=== PATIENT | male | born 1960 | race Two or more races ===

== ENCOUNTER 2022-11-03 11:20 | Inpatient (IN) | payer MEDICAID, OTHER ==
[~2022-11-03] VITALS: Ht 177.8 cm; Wt 90.9 kg
[2022-11-03 12:16] LABS: Basophils # (auto) 0 10 ^3/uL (0-0.2); Basophils % (auto) 0.6 % (0.0-2.0); Eosinophils # (auto) 0 10 ^3/uL (0-0.8); Eosinophils % (auto) 0.2 % (0.0-7.0); Hematocrit 30.2 % (41.0-53.0); Lymphocytes % (auto) 15.5 % (10.0-50.0); Mean Corpuscular Hemoglobin 29.3 pg (28.0-32.0); Mean Corpuscular Hgb Conc. 33.2 g/dL (32.0-36.0); Mean Corpuscular Volume 88.2 fL (80.0-100.0); Monocytes # (auto) 0.7 10 ^3/uL (0-1.3); Monocytes % (auto) 11.5 % (0.0-12.0); Neutrophils # (auto) 4.6 10 ^3/uL (1.6-8.6); Neutrophils % (auto) 72.2 % (37.0-80.0); Red Blood Cells 3.43 10^6/uL (4.5-5.90); Red Cell Distribution Width 16.1 % (11.8-14.3); White Blood Cell 6.4 10^3/uL (4.4-10.8)
[2022-11-03 12:36] LABS: Albumin 2.7 g/dL (3.4-5.0); BUN/Creatinine Ratio 34.4; Calcium 8.8 mg/dL (8.5-10.1); Potassium 4.6 mmol/L (3.5-5.1)
[2022-11-03 12:38] LABS: Bilirubin, Total 1.4 mg/dL (0.2-1.0); Total Protein 6.9 g/dL (6.4-8.2)
[2022-11-03] MEDS ORDERED: PANTOPRAZOLE 40mg/50ML NS AE 50 ML IV ONE (13:15)
[2022-11-03] MEDS: OCTREOTIDE ACETATE 500 MCG in SODIUM CHL 0.9% 99 ML IV SCH (13:15)
[2022-11-03] MEDS ORDERED: OCTREOTIDE ACETATE 100 MCG in SODIUM CHL 0.9% 50 ML IV ONE (13:15)
[2022-11-03] MEDS ORDERED: cefTRIAXone SOD 1,000 MG VL IV ONE (13:15)
[2022-11-03] MEDS ORDERED: PANTOPRAZOLE 80 MG in SODIUM CHL 0.9% 100 ML IV ONE (13:15)
[2022-11-03 13:41] LABS: INR 1.32 (0.9-1.15)
[2022-11-03] MEDS ORDERED: IOHEXOL 300 MG/ML 100ML BOTTLE IJ ONE (14:21)
[2022-11-03] MEDS ORDERED: ONDANSETRON HCL 4 MG/2 ML VIAL IV ONE (14:45)
[2022-11-03] MEDS ORDERED: MORPHINE SULFATE 4 MG/ML SYR/VIAL IV ONE (14:45)
[2022-11-03 16:02] VITALS: BP 115/76
[2022-11-03 16:18] VITALS: BP 115/76
[2022-11-03 16:33] VITALS: BP 112/67
[2022-11-03 16:52] LABS: Cholesterol 59 mg/dL (< 200); HDL Cholesterol 35 mg/dL (40-59); LDL Cholesterol 21 mg/dL (< 100); Triglycerides 67 mg/dL (< 150)
[2022-11-03 17:25] VITALS: BP 107/59
[2022-11-03 18:29] LABS: Urine WBC None Seen /hpf (0 - 3)
[2022-11-03 18:30] LABS: Basophils # (auto) 0 10 ^3/uL (0-0.2); Eosinophils # (auto) 0 10 ^3/uL (0-0.8); Hemoglobin 9.1 g/dL (13.5-17.5); Lymphocytes # (auto) 0.9 10 ^3/uL (0.4-5.4); Mean Corpuscular Hemoglobin 29.8 pg (28.0-32.0); Mean Corpuscular Hgb Conc. 33.4 g/dL (32.0-36.0); Nucleated Red Blood Cells % 0.1 %
[2022-11-03] MEDS ORDERED: ONDANSETRON HCL 4 MG/2 ML VIAL IV PRN (18:30)
[2022-11-03 18:32] LABS: Basophils % (auto) 0.1 % (0.0-2.0); Hematocrit 27.1 % (41.0-53.0); Lymphocytes % (auto) 10.8 % (10.0-50.0); Mean Corpuscular Volume 89.2 fL (80.0-100.0); Monocytes # (auto) 0.6 10 ^3/uL (0-1.3); Monocytes % (auto) 7.5 % (0.0-12.0); Neutrophils # (auto) 6.9 10 ^3/uL (1.6-8.6); Neutrophils % (auto) 81.6 % (37.0-80.0); Red Blood Cells 3.04 10^6/uL (4.5-5.90); Red Cell Distribution Width 16.1 % (11.8-14.3); White Blood Cell 8.5 10^3/uL (4.4-10.8)
[2022-11-03] MEDS: MORPHINE SULFATE INJ 2 MG/ml SYRG IV PRN ×2 (18:38→22:44)
[2022-11-03 18:57] LABS: Amphetamine Screen, Urine NEGATIVE (NEGATIVE); Barbiturate Scree,Urine NEGATIVE (NEGATIVE); Benzodiazephine Screen, Urine NEGATIVE (NEGATIVE); Cannabinoid Screen, Urine POSITIVE (NEGATIVE); Cocaine Screen, Urine NEGATIVE (NEGATIVE); Opiate Scree,Urine POSITIVE (NEGATIVE); Phencyclidine Screen, Urine NEGATIVE (NEGATIVE)
[2022-11-03 18:59] LABS: Urine Bacteria NONE SEEN /hpf (None Seen); Urine Blood Negative /uL (Negative); Urine Hyaline Cast MOD /lpf (0 - 2); Urine Sperm PRESENT /hpf (None Seen)
[2022-11-03] MEDS: D5W/SOD CHL 0.45% 1,000 ML IV SCH (18:59)
[2022-11-03] MEDS: metroNIDAZOLE 500MG/100ML 100 ML IV SCH (22:42)
[2022-11-03] MEDS: PANTOPRAZOLE 40 MG/10 ML VIAL INJ IV SCH (22:43)
[2022-11-03] MEDS ORDERED: OCTREOTIDE ACETATE 500 MCG/ML VL ONE (22:53)
[2022-11-04] VITALS (13 sets, daily range): BP systolic 102–139; BP diastolic 52–77
[2022-11-04] MEDS: OCTREOTIDE ACETATE 500 MCG in SODIUM CHL 0.9% 99 ML IV SCH ×3 (00:57→11:52)
[2022-11-04] MEDS: MORPHINE SULFATE INJ 2 MG/ml SYRG IV PRN ×5 (02:52→20:50)
[2022-11-04] MEDS ORDERED: PNEUMOCOCCAL VACC POLYS 25 MCG/0.5 ML VIAL IM ONE (04:15)
[2022-11-04] MEDS: metroNIDAZOLE 500MG/100ML 100 ML IV SCH (06:23)
[2022-11-04] MEDS ORDERED: HYDR-4798 PO (06:56)
[2022-11-04] MEDS ORDERED: FURO20TA3 PO (06:56)
[2022-11-04] MEDS ORDERED: GABA-339 PO (07:12)
[2022-11-04] MEDS ORDERED: HYDR50TA32 PO (07:38)
[2022-11-04] MEDS: D5W/SOD CHL 0.45% 1,000 ML IV SCH ×2 (07:50→15:59)
[2022-11-04 07:57] LABS: Basophils # (auto) 0 10 ^3/uL (0-0.2); Basophils % (auto) 0.5 % (0.0-2.0); Eosinophils # (auto) 0 10 ^3/uL (0-0.8); Hematocrit 21.8 % (41.0-53.0); Hemoglobin 7.2 g/dL (13.5-17.5); Lymphocytes # (auto) 1.4 10 ^3/uL (0.4-5.4); Monocytes # (auto) 0.3 10 ^3/uL (0-1.3); Neutrophils # (auto) 1.8 10 ^3/uL (1.6-8.6)
[2022-11-04 08:00] LABS: Eosinophils % (auto) 1.3 % (0.0-7.0); Lymphocytes % (auto) 39.1 % (10.0-50.0); Mean Corpuscular Hemoglobin 29.8 pg (28.0-32.0); Mean Corpuscular Hgb Conc. 33.3 g/dL (32.0-36.0); Mean Corpuscular Volume 89.5 fL (80.0-100.0); Monocytes % (auto) 9.3 % (0.0-12.0); Neutrophils % (auto) 49.8 % (37.0-80.0); Nucleated Red Blood Cells % 0.1 %; Red Blood Cells 2.43 10^6/uL (4.5-5.90); Red Cell Distribution Width 15.9 % (11.8-14.3); White Blood Cell 3.6 10^3/uL (4.4-10.8)
[2022-11-04 08:13] LABS: Potassium 4.1 mmol/L (3.5-5.1)
[2022-11-04 08:32] LABS: Albumin 2.6 g/dL (3.4-5.0); BUN/Creatinine Ratio 35.7; Bilirubin, Total 1.2 mg/dL (0.2-1.0); Total Protein 5.8 g/dL (6.4-8.2)
[2022-11-04] MEDS ORDERED: cefTRIAXone 1GM/50ML D5W 50 ML IV SCH (09:00)
[2022-11-04] MEDS: PANTOPRAZOLE 40 MG/10 ML VIAL INJ IV SCH (10:34)
[2022-11-04 10:39] LABS: INR 1.32 (0.9-1.15); Partial Thromboplastin Time 31.5 sec (24.6-33.4)
[2022-11-04 11:04] LABS: Hematocrit 20.8 % (41.0-53.0)
[2022-11-04 11:18] LABS: Hemoglobin 6.8 g/dL (13.5-17.5)
[2022-11-04 19:09] LABS: Basophils # (auto) 0 10 ^3/uL (0-0.2); Basophils % (auto) 1.4 % (0.0-2.0); Eosinophils # (auto) 0.1 10 ^3/uL (0-0.8); Eosinophils % (auto) 2.1 % (0.0-7.0); Hematocrit 23.2 % (41.0-53.0); Hemoglobin 7.8 g/dL (13.5-17.5); Lymphocytes # (auto) 0.9 10 ^3/uL (0.4-5.4); Lymphocytes % (auto) 35.3 % (10.0-50.0); Mean Corpuscular Hgb Conc. 33.6 g/dL (32.0-36.0); Mean Corpuscular Volume 89.3 fL (80.0-100.0); Monocytes # (auto) 0.2 10 ^3/uL (0-1.3); Monocytes % (auto) 7.4 % (0.0-12.0); Neutrophils # (auto) 1.4 10 ^3/uL (1.6-8.6); Neutrophils % (auto) 53.8 % (37.0-80.0); Nucleated Red Blood Cells % 0.2 %; Red Cell Distribution Width 17.1 % (11.8-14.3); White Blood Cell 2.6 10^3/uL (4.4-10.8)
[2022-11-04] MEDS: PANTOPRAZOLE 40mg/50ML NS AE 50 ML IV SCH ×2 (20:15→22:13)
[2022-11-04 21:58] LABS: Hemoglobin 7.7 g/dL (13.5-17.5)
[2022-11-05 00:37] VITALS: BP 136/71
[2022-11-05] MEDS: MORPHINE SULFATE INJ 2 MG/ml SYRG IV PRN ×2 (00:51→05:32)
[2022-11-05] MEDS: D5W/SOD CHL 0.45% 1,000 ML IV SCH ×4 (01:15→18:17)
[2022-11-05 05:00] VITALS: BP 124/69
[2022-11-05] MEDS: PANTOPRAZOLE 40mg/50ML NS AE 50 ML IV SCH ×3 (05:03→15:27)
[2022-11-05] MEDS: OCTREOTIDE ACETATE 500 MCG in SODIUM CHL 0.9% 99 ML IV SCH ×2 (06:21→16:24)
[2022-11-05 06:31] LABS: Albumin 2.6 g/dL (3.4-5.0); Calcium 8.1 mg/dL (8.5-10.1)
[2022-11-05 06:33] LABS: BUN/Creatinine Ratio 23.5; Basophils # (auto) 0 10 ^3/uL (0-0.2); Basophils % (auto) 0.6 % (0.0-2.0); Hemoglobin 7.6 g/dL (13.5-17.5); Lymphocytes # (auto) 0.7 10 ^3/uL (0.4-5.4); Monocytes # (auto) 0.2 10 ^3/uL (0-1.3); White Blood Cell 2.1 10^3/uL (4.4-10.8)
[2022-11-05 06:36] LABS: Eosinophils # (auto) 0.1 10 ^3/uL (0-0.8); Eosinophils % (auto) 2.4 % (0.0-7.0); Hematocrit 22.6 % (41.0-53.0); Lymphocytes % (auto) 33.8 % (10.0-50.0); Mean Corpuscular Hemoglobin 29.9 pg (28.0-32.0); Mean Corpuscular Hgb Conc. 33.6 g/dL (32.0-36.0); Mean Corpuscular Volume 88.8 fL (80.0-100.0); Monocytes % (auto) 9.1 % (0.0-12.0); Neutrophils # (auto) 1.2 10 ^3/uL (1.6-8.6); Neutrophils % (auto) 54.1 % (37.0-80.0); Nucleated Red Blood Cells % 0.3 %; Red Blood Cells 2.55 10^6/uL (4.5-5.90); Red Cell Distribution Width 17.1 % (11.8-14.3)
[2022-11-05 09:00] VITALS: BP 113/68
[2022-11-05] MEDS: [UNRECOGNIZED DRUG - REMARK] IV SCH (09:02)
[2022-11-05] MEDS ORDERED: cefTRIAXone SOD 1,000 MG VL IV ONE (10:00)
[2022-11-05] MEDS: GABAPENTIN 400 MG CAP PO SCH ×3 (10:14→22:45)
[2022-11-05] MEDS: HYDROcodone-ACET 10/325MG TAB PO PRN ×2 (12:48→18:08)
[2022-11-05 13:00] VITALS: BP 123/73
[2022-11-05 16:42] VITALS: BP 137/98
[2022-11-05 22:00] VITALS: BP 144/99
[2022-11-06] MEDS: PANTOPRAZOLE 40mg/50ML NS AE 50 ML IV SCH ×3 (00:33→05:45)
[2022-11-06] MEDS: HYDROcodone-ACET 10/325MG TAB PO PRN ×3 (01:25→20:05)
[2022-11-06] MEDS: OCTREOTIDE ACETATE 500 MCG in SODIUM CHL 0.9% 99 ML IV SCH (01:41)
[2022-11-06 05:00] VITALS: BP 134/76
[2022-11-06] MEDS: GABAPENTIN 400 MG CAP PO SCH ×4 (05:45→22:04)
[2022-11-06 06:17] LABS: Basophils # (auto) 0 10 ^3/uL (0-0.2); Eosinophils # (auto) 0 10 ^3/uL (0-0.8); Hemoglobin 7.4 g/dL (13.5-17.5); Mean Corpuscular Volume 89.3 fL (80.0-100.0)
[2022-11-06 06:21] LABS: Basophils % (auto) 0.8 % (0.0-2.0); Eosinophils % (auto) 2.6 % (0.0-7.0); Lymphocytes # (auto) 0.6 10 ^3/uL (0.4-5.4); Lymphocytes % (auto) 36.1 % (10.0-50.0); Mean Corpuscular Hemoglobin 29.9 pg (28.0-32.0); Mean Corpuscular Hgb Conc. 33.4 g/dL (32.0-36.0); Monocytes # (auto) 0.2 10 ^3/uL (0-1.3); Monocytes % (auto) 9.6 % (0.0-12.0); Neutrophils # (auto) 0.9 10 ^3/uL (1.6-8.6); Neutrophils % (auto) 50.9 % (37.0-80.0); Nucleated Red Blood Cells % 0.1 %; Red Blood Cells 2.46 10^6/uL (4.5-5.90)
[2022-11-06 06:43] LABS: Albumin 2.5 g/dL (3.4-5.0); BUN/Creatinine Ratio 13.5; Calcium 7.7 mg/dL (8.5-10.1)
[2022-11-06 06:46] LABS: Bilirubin, Total 1.3 mg/dL (0.2-1.0); Total Protein 5.8 g/dL (6.4-8.2)
[2022-11-06 07:12] LABS: White Blood Cell 1.7 10^3/uL (4.4-10.8)
[2022-11-06] MEDS: MORPHINE SULFATE 4 MG/ML SYR/VIAL IV PRN (08:45)
[2022-11-06 09:00] VITALS: BP 134/78
[2022-11-06] MEDS ORDERED: LIDOCAINE VISCOUS 2% 15ML UD ONE (09:37)
[2022-11-06] MEDS ORDERED: BENZOCAINE (DENTAL) 20 % SPRAY 60ML MT ONE (09:37)
[2022-11-06] MEDS ORDERED: MEPERIDINE HCL (25 MG/ML) 1ML VIAL ONE (09:43)
[2022-11-06] MEDS ORDERED: fentaNYL CITRATE 100 MCG/2 ML VL ONE (09:43)
[2022-11-06] MEDS ORDERED: MIDAZOLAM HCL 2MG/2ML 2ml VIAL (1mg/ml) ONE (09:43)
[2022-11-06] MEDS ORDERED: SUCCINYLCHOLINE CHLORIDE 20 MG/ML 10ML VIAL IV ONE (09:45)
[2022-11-06] MEDS ORDERED: DexAMETHasone SOD PHOS 10MG/1ML VIAL INJ ONE (10:10)
[2022-11-06] MEDS ORDERED: PROPOFOL 10 MG/ML 20 ML IV ONE (10:11)
[2022-11-06] MEDS ORDERED: LORazepam 0.5 MG TAB PO PRN (11:30)
[2022-11-06] MEDS ORDERED: THIAMINE HCL 100 MG TAB PO ONE (11:30)
[2022-11-06] MEDS ORDERED: THIAMINE 100mg/ml INJ (200mg/2ml VIAL) IV ONE (11:30)
[2022-11-06] MEDS: D5W/SOD CHL 0.45% 1,000 ML IV SCH ×2 (11:48→22:13)
[2022-11-06] MEDS: [UNRECOGNIZED DRUG - REMARK] IV SCH (11:48)
[2022-11-06 13:00] VITALS: BP 123/81
[2022-11-06 17:00] VITALS: BP 138/73
[2022-11-06 22:00] VITALS: BP 142/77
[2022-11-07] MEDS: MORPHINE SULFATE 4 MG/ML SYR/VIAL IV PRN ×2 (00:34→08:43)
[2022-11-07] MEDS: LORazepam 0.5 MG TAB PO PRN ×2 (02:53→22:34)
[2022-11-07] MEDS: GABAPENTIN 400 MG CAP PO SCH ×4 (04:22→22:23)
[2022-11-07] MEDS: HYDROcodone-ACET 10/325MG TAB PO PRN ×3 (04:22→18:20)
[2022-11-07 05:00] VITALS: BP 135/72
[2022-11-07 05:11] LABS: Basophils # (auto) 0 10 ^3/uL (0-0.2); Eosinophils # (auto) 0 10 ^3/uL (0-0.8); Lymphocytes # (auto) 0.3 10 ^3/uL (0.4-5.4); Nucleated Red Blood Cells % 0.1 %; Red Blood Cells 2.47 10^6/uL (4.5-5.90); Red Cell Distribution Width 16.5 % (11.8-14.3); White Blood Cell 2.6 10^3/uL (4.4-10.8)
[2022-11-07 05:16] LABS: Basophils % (auto) 0.2 % (0.0-2.0); Hematocrit 22.1 % (41.0-53.0); Hemoglobin 7.5 g/dL (13.5-17.5); Lymphocytes % (auto) 12.4 % (10.0-50.0); Mean Corpuscular Hemoglobin 30.4 pg (28.0-32.0); Mean Corpuscular Hgb Conc. 33.9 g/dL (32.0-36.0); Mean Corpuscular Volume 89.6 fL (80.0-100.0); Monocytes # (auto) 0.2 10 ^3/uL (0-1.3); Monocytes % (auto) 7.8 % (0.0-12.0); Neutrophils # (auto) 2.1 10 ^3/uL (1.6-8.6); Neutrophils % (auto) 79.6 % (37.0-80.0)
[2022-11-07 05:29] LABS: Albumin 2.6 g/dL (3.4-5.0); Calcium 7.4 mg/dL (8.5-10.1); Potassium 3.9 mmol/L (3.5-5.1)
[2022-11-07 05:34] LABS: BUN/Creatinine Ratio 9.5
[2022-11-07] MEDS: FOLIC ACID 1 MG TAB PO SCH (08:44)
[2022-11-07] MEDS: [UNRECOGNIZED DRUG - REMARK] IV SCH (08:44)
[2022-11-07 09:00] VITALS: BP 146/81
[2022-11-07] MEDS: THIAMINE HCL 100 MG TAB PO SCH (10:00)
[2022-11-07] MEDS ORDERED: hydrOXYzine 25 MG TAB or CAP PO PRN (11:45)
[2022-11-07 13:00] VITALS: BP 127/76
[2022-11-07] MEDS: PANTOPRAZOLE 40 MG TAB PO SCH (13:17)
[2022-11-07 17:00] VITALS: BP 120/70
[2022-11-07 19:50] VITALS: BP 155/81
[2022-11-07 22:00] VITALS: BP 155/81
[2022-11-08] MEDS: HYDROcodone-ACET 10/325MG TAB PO PRN ×3 (00:20→10:42)
[2022-11-08 05:00] VITALS: BP 156/72
[2022-11-08] MEDS: LORazepam 0.5 MG TAB PO PRN (05:12)
[2022-11-08] MEDS: GABAPENTIN 400 MG CAP PO SCH ×2 (05:16→14:10)
[2022-11-08 06:30] LABS: Albumin 2.4 g/dL (3.4-5.0); BUN/Creatinine Ratio 12.8; Calcium 7.8 mg/dL (8.5-10.1); Potassium 3.9 mmol/L (3.5-5.1)
[2022-11-08 06:32] LABS: Bilirubin, Total 0.9 mg/dL (0.2-1.0); Total Protein 6.2 g/dL (6.4-8.2)
[2022-11-08 06:37] LABS: Hematocrit 22.9 % (41.0-53.0); Hemoglobin 7.5 g/dL (13.5-17.5); Mean Corpuscular Hemoglobin 29.6 pg (28.0-32.0); Mean Corpuscular Hgb Conc. 32.9 g/dL (32.0-36.0); Mean Corpuscular Volume 89.8 fL (80.0-100.0); Red Blood Cells 2.55 10^6/uL (4.5-5.90)
[2022-11-08 07:55] LABS: Basophils % (manual) 0 (0.0-2.0); Blast Cells 0; Metamyelocytes % 0; Myelocytes % 0; Promyelocytes % 0; Reactive Lymphocytes 0; White Blood Cell 1.9 10^3/uL (4.4-10.8)
[2022-11-08 09:00] VITALS: BP 121/76
[2022-11-08] MEDS ORDERED: PANT40T PO (09:27)
[2022-11-08] MEDS ORDERED: FER325T PO (09:27)
[2022-11-08] MEDS ORDERED: THIA100T10 PO (09:27)
[2022-11-08] MEDS: [UNRECOGNIZED DRUG - REMARK] IV SCH (10:00)
[2022-11-08] MEDS: PANTOPRAZOLE 40 MG TAB PO SCH (10:00)
[2022-11-08] MEDS: THIAMINE HCL 100 MG TAB PO SCH (10:42)
[2022-11-08] MEDS: FOLIC ACID 1 MG TAB PO SCH (10:42)
[2022-11-08 13:00] VITALS: BP 130/76
[2022-11-08 14:26] VITALS: BP 130/76
[2022-11-08 14:56] LABS: Band Neutrophils % (manual) 11; Eosinophils % (manual) 1 (0-7); Lymphocytes % (manual) 21 (10.0-50.0); Monocytes % (manual) 5 (0-12)
== END 2022-11-08 15:36 | disposition home or self-care (01) | DRG 280 ==
LOC: ER 11:20 → EDBD 11:20 → TELE 14:19 → TELE-CENTR 21:15
PROVIDERS: ADMIT Registered Nurse; ATTEND Student in an Organized Health Care Education/Training Program
PROC: 30233R1 Transfusion of Nonautologous Platelets into Peripheral Vein, Percutaneous Approach (ICD-10-PCS; 2022-11-03)
PROC: 30233N1 Transfusion of Nonautologous Red Blood Cells into Peripheral Vein, Percutaneous Approach (ICD-10-PCS; 2022-11-04)
PROC: 3E0234Z Introduction of Serum, Toxoid and Vaccine into Muscle, Percutaneous Approach (ICD-10-PCS; 2022-11-04)
PROC: 0DJ08ZZ Inspection of Upper Intestinal Tract, Via Natural or Artificial Opening Endoscopic (ICD-10-PCS; principal; 2022-11-06 09:40)
DX: K70.30 Alcoholic cirrhosis of liver without ascites (principal); I85.11 Secondary esophageal varices with bleeding; D61.818 Other pancytopenia; K76.6 Portal hypertension; K57.31 Diverticulosis of large intestine without perforation or abscess with bleeding; E88.09 Other disorders of plasma-protein metabolism, not elsewhere classified; K31.89 Other diseases of stomach and duodenum; D69.59 Other secondary thrombocytopenia; K40.90 Unilateral inguinal hernia, without obstruction or gangrene, not specified as recurrent; K44.9 Diaphragmatic hernia without obstruction or gangrene; K80.20 Calculus of gallbladder without cholecystitis without obstruction; G62.9 Polyneuropathy, unspecified; R16.1 Splenomegaly, not elsewhere classified; F10.10 Alcohol abuse, uncomplicated; Z79.899 Other long term (current) drug therapy; Z71.41 Alcohol abuse counseling and surveillance of alcoholic; Z23 Encounter for immunization
CPT/HCPCS: 36415; 36430; 71045; 74177; 80053; 80061; 80307; 80320; 81001; 83036; 83690; 84443; 85007; 85014; 85018; 85025; 85027; 85610; 85730; 86850; 86900; 86901; 86920; 87040; 87426; 93005; 96365; 96368; 96375; 96376; 99291; C9113; G0378; J0330; J0696; J1100; J2250; J2405; J2704; J3490

== ENCOUNTER 2023-08-21 11:10 | Emergency (ER) | payer MEDICAID ==
[~2023-08-21] VITALS: Ht 177.8 cm; Wt 82.4 kg
[~2023-08-21 11:10] MED LIST: FER325T PO; FURO20TA3 PO; GABA-339 PO; HYDR-4798 PO; HYDR50TA32 PO; PANT40T PO; THIA100T10 PO
[2023-08-21 11:56] VITALS: BP 158/95; PULSE 98; RESP 18; TEMP 99.4; O2SAT 96
[2023-08-21] MEDS ORDERED: HYDROcodone-ACET 10/325MG TAB PO ONE (12:15)
[2023-08-21] MEDS ORDERED: KETOROLAC TROMETH 60MG/2ML VIAL IM ONE (12:15)
[2023-08-21] MEDS ORDERED: HYDR-4798 PO (13:05)
[2023-08-21] MEDS ORDERED: INDO50CA82 PO (13:05)
[2023-08-21] MEDS ORDERED: COLC1CAP PO (13:05)
[2023-08-21] MEDS ORDERED: IBUP-1456 PO (15:30)
== END 2023-08-21 13:17 | disposition home or self-care (01) ==
LOC: ER 11:10
DX: M10.9 Gout, unspecified (principal); G62.9 Polyneuropathy, unspecified; F17.210 Nicotine dependence, cigarettes, uncomplicated; F10.90 Alcohol use, unspecified, uncomplicated; Z79.1 Long term (current) use of non-steroidal anti-inflammatories (NSAID); Z79.899 Other long term (current) drug therapy; Y90.0 Blood alcohol level of less than 20 mg/100 ml
CPT/HCPCS: 96372; 99283; J1885

== ENCOUNTER 2024-06-25 10:26 | Inpatient (IN) | payer MEDICAID ==
[~2024-06-25] VITALS: Ht 175.3 cm; Wt 86.7 kg
[~2024-06-25 10:26] MED LIST changes: +COLC1CAP PO; +IBUP-1456 PO; +INDO50CA82 PO
[2024-06-25 10:36] VITALS: PULSE 91; RESP 20; O2SAT 97
[2024-06-25] MEDS: ONDANSETRON HCL 4 MG/2 ML VIAL IV ONE (10:53)
[2024-06-25] MEDS: PANTOPRAZOLE 40 MG/10 ML VIAL INJ IV ONE (10:53)
[2024-06-25] MEDS: MORPHINE SULFATE 4 MG/ML SYR/VIAL IV ONE ×2 (10:54→14:03)
[2024-06-25 11:04] LABS: Basophils # (auto) 0 10 ^3/uL (0-0.2); Basophils % (auto) 0.4 % (0.0-2.0); Eosinophils # (auto) 0 10 ^3/uL (0-0.8); Eosinophils % (auto) 1.2 % (0.0-7.0); Hematocrit 26.4 % (41.0-53.0); Hemoglobin 8.7 g/dL (13.5-17.5); Lymphocytes # (auto) 0.5 10 ^3/uL (0.4-5.4); Lymphocytes % (auto) 18.8 % (10.0-50.0); Mean Corpuscular Hemoglobin 27.5 pg (28.0-32.0); Mean Corpuscular Hgb Conc. 32.8 g/dL (32.0-36.0); Mean Corpuscular Volume 83.8 fL (80.0-100.0); Monocytes # (auto) 0.4 10 ^3/uL (0-1.3); Monocytes % (auto) 12.7 % (0.0-12.0); Neutrophils # (auto) 1.8 10 ^3/uL (1.6-8.6); Neutrophils % (auto) 66.9 % (37.0-80.0); Nucleated Red Blood Cells % 0.1 %; Red Blood Cells 3.15 10^6/uL (4.5-5.90); White Blood Cell 2.8 10^3/uL (4.4-10.8)
[2024-06-25 11:05] LABS: Red Cell Distribution Width 21.5 % (11.8-14.3)
[2024-06-25 11:19] LABS: Alanine Aminotransferase 26 U/L (7-40); Alkaline Phosphatase 158 U/L (46-116); Anion Gap 9 (5-15); Aspartate Aminotransferase 57 U/L (13-40); BUN/Creatinine Ratio 15.2 (10.0-20.0); Bilirubin, Total 0.9 mg/dL (0.2-1.0); Blood Urea Nitrogen 12 mg/dL (9-23); Calcium 8.4 mg/dL (8.7-10.4); Carbon Dioxide 20 mmol/L (20-30); Chloride 108 mmol/L (98-107); Glucose 127 mg/dL (74-106); Lipase 81 U/L (12-53); Potassium 4.1 mmol/L (3.5-5.1); Sodium 137 mmol/L (136-145); Total Protein 6.8 g/dL (5.7-8.2)
[2024-06-25 11:36] LABS: Blood Alcohol < 3.0 mg/dL (<10)
[2024-06-25 11:39] LABS: Anisocytosis Slight; Ovalocytes FEW; Platelet Estimate Decreased
[2024-06-25 12:02] LABS: Urine Bacteria None Seen /hpf (None Seen)
[2024-06-25 12:32] LABS: Urine Blood Negative /uL (Negative); Urine Clarity Clear (Clear); Urine Color Light-Yellow (Yellow); Urine Protein, UAD Negative (Negative); Urine Specific Gravity 1.011 (1.001-1.035); Urine Urobilinogen Normal (Negative); Urine WBC <1 /hpf (0 - 3); Urine pH 7.5 (5.0-9.0)
[2024-06-25] MEDS: IOHEXOL 300 MG/ML 100ML BOTTLE IJ ONE (12:33)
[2024-06-25 12:39] LABS: Amphetamine Screen, Urine Neg (NEGATIVE); Barbiturate Scree,Urine Neg (NEGATIVE); Benzodiazephine Screen, Urine Neg (NEGATIVE); Cannabinoid Screen, Urine Neg (NEGATIVE); Cocaine Screen, Urine Neg (NEGATIVE); Opiate Scree,Urine Neg (NEGATIVE); Phencyclidine Screen, Urine Neg (NEGATIVE)
[2024-06-25] MEDS: metroNIDAZOLE 500MG/100ML 100 ML IV ONE (13:42)
[2024-06-25] MEDS: CEFEPIME 2GM/50ML NS 50 ML IV ONE (13:56)
[2024-06-25] MEDS ORDERED: ACETAMINOPHEN 325 MG TAB PO PRN (15:45)
[2024-06-25] MEDS: cefTRIAXone 1GM/50ML D5W 50 ML IV SCH (16:02)
[2024-06-25] MEDS: FUROSEMIDE 20 MG TAB PO SCH (17:30)
[2024-06-25 19:12] VITALS: PULSE 68; RESP 20; O2SAT 97
[2024-06-25] MEDS: SODIUM CHLOR 0.9% PF (SALINE LOCK) 10ML VIAL/SYR IV SCH (21:28)
[2024-06-25 21:47] VITALS: PULSE 85; RESP 18; O2SAT 97
[2024-06-25] MEDS ORDERED: FURO40TA4 (21:47)
[2024-06-25] MEDS ORDERED: NAP500T (21:47)
[2024-06-25 21:48] VITALS: BP 132/72; PULSE 80; RESP 18; O2SAT 98
[2024-06-25] MEDS: HYDROmorphone HCL 2 MG/ML VL/or syr IV PRN (22:01)
[2024-06-25] MEDS: PROPRANOLOL HCL 20 MG TAB PO SCH (22:02)
[2024-06-26 01:00] VITALS: BP 131/74; PULSE 63; RESP 19; O2SAT 96
[2024-06-26 05:00] VITALS: BP 139/73; PULSE 58; RESP 18; O2SAT 98
[2024-06-26 08:38] VITALS: BP 121/71; PULSE 61; RESP 16; TEMP 97.4; O2SAT 98
[2024-06-26 08:55] LABS: Basophils # (auto) 0 10 ^3/uL (0-0.2); Basophils % (auto) 0.5 % (0.0-2.0); Eosinophils # (auto) 0.1 10 ^3/uL (0-0.8); Eosinophils % (auto) 2.2 % (0.0-7.0); Hematocrit 30.2 % (41.0-53.0); Hemoglobin 9.8 g/dL (13.5-17.5); Lymphocytes # (auto) 0.6 10 ^3/uL (0.4-5.4); Lymphocytes % (auto) 16.9 % (10.0-50.0); Mean Corpuscular Hemoglobin 27.5 pg (28.0-32.0); Mean Corpuscular Hgb Conc. 32.6 g/dL (32.0-36.0); Mean Corpuscular Volume 84.4 fL (80.0-100.0); Monocytes # (auto) 0.3 10 ^3/uL (0-1.3); Monocytes % (auto) 9.5 % (0.0-12.0); Neutrophils # (auto) 2.5 10 ^3/uL (1.6-8.6); Neutrophils % (auto) 70.9 % (37.0-80.0); Red Blood Cells 3.58 10^6/uL (4.5-5.90); Red Cell Distribution Width 21.8 % (11.8-14.3); White Blood Cell 3.6 10^3/uL (4.4-10.8)
[2024-06-26 09:13] LABS: Alanine Aminotransferase 24 U/L (7-40); Albumin 3.1 g/dL (3.2-4.8); Alkaline Phosphatase 126 U/L (46-116); Calcium 8.6 mg/dL (8.7-10.4); Carbon Dioxide 26 mmol/L (20-30); Chloride 104 mmol/L (98-107)
[2024-06-26 09:14] LABS: Anion Gap 6 (5-15); Aspartate Aminotransferase 53 U/L (13-40); BUN/Creatinine Ratio 18.4 (10.0-20.0); Bilirubin, Total 1.2 mg/dL (0.2-1.0); Blood Urea Nitrogen 16 mg/dL (9-23); Glucose 111 mg/dL (74-106); Potassium 3.7 mmol/L (3.5-5.1); Sodium 136 mmol/L (136-145); Total Protein 6.7 g/dL (5.7-8.2)
[2024-06-26 10:37] LABS: INR 1.16 (0.9-1.15); Partial Thromboplastin Time 30.3 SEC (24.5-34.5); Prothrombin Time 12.2 sec (9.3-11.8)
[2024-06-26] MEDS: SPIRONOLACTONE 25 MG TAB PO ONE (12:03)
[2024-06-26] MEDS: THIAMINE HCL 100 MG TAB PO SCH (12:03)
[2024-06-26] MEDS: FERROUS SULFATE 325mg EC TAB PO SCH (12:03)
[2024-06-26] MEDS: PANTOPRAZOLE 40 MG TAB PO ONE (12:04)
[2024-06-26 12:10] LABS: Hepatitis B Surface Antigen Negative (Negative)
[2024-06-26 12:31] LABS: Hepatitis A Ab IgM Negative; Hepatitis B Core IgM Negative
[2024-06-26 12:35] LABS: Hepatitis C Antibody Positive (Negative)
[2024-06-26 13:00] VITALS: BP 159/96; PULSE 76; RESP 18; TEMP 98.1; O2SAT 97
[2024-06-26] MEDS: metroNIDAZOLE 500MG/100ML 100 ML IV SCH (14:12)
[2024-06-26] MEDS: ONDANSETRON HCL 4 MG/2 ML VIAL IV PRN (15:51)
[2024-06-26] MEDS: MORPHINE SULFATE INJ 2 MG/ml SYRG IV PRN (15:52)
[2024-06-26 17:00] VITALS: BP 153/100; PULSE 72; RESP 14; TEMP 97.9; O2SAT 96
[2024-06-26] MEDS: HYDROcodone-ACET 5/325MG TAB PO PRN (18:06)
[2024-06-26 20:39] VITALS: BP_SYST 134; BP_SYST 135; BP_DIAS 62; BP_DIAS 64; PULSE 61; RESP 19; TEMP 97.8; O2SAT 98
[2024-06-26] MEDS: GABAPENTIN 300 MG CAP PO SCH (21:04)
[2024-06-26] MEDS: LACTULOSE 20Gm/30ML SOLN PO SCH (21:11)
[2024-06-27] MEDS: PANTOPRAZOLE 40 MG TAB PO SCH (05:11)
[2024-06-27 06:02] LABS: Basophils # (auto) 0 10 ^3/uL (0-0.2); Basophils % (auto) 0.5 % (0.0-2.0); Eosinophils # (auto) 0.2 10 ^3/uL (0-0.8); Eosinophils % (auto) 2.3 % (0.0-7.0); Hematocrit 32.6 % (41.0-53.0); Hemoglobin 10.8 g/dL (13.5-17.5); Lymphocytes # (auto) 1.8 10 ^3/uL (0.4-5.4); Lymphocytes % (auto) 22.9 % (10.0-50.0); Mean Corpuscular Hemoglobin 27.7 pg (28.0-32.0); Mean Corpuscular Hgb Conc. 33.2 g/dL (32.0-36.0); Mean Corpuscular Volume 83.4 fL (80.0-100.0); Monocytes % (auto) 12.5 % (0.0-12.0); Neutrophils # (auto) 4.8 10 ^3/uL (1.6-8.6); Neutrophils % (auto) 61.8 % (37.0-80.0); Nucleated Red Blood Cells % 0.3 %; Red Blood Cells 3.91 10^6/uL (4.5-5.90); White Blood Cell 7.7 10^3/uL (4.4-10.8)
[2024-06-27 06:15] LABS: Alanine Aminotransferase 28 U/L (7-40); Albumin 3.1 g/dL (3.2-4.8); Alkaline Phosphatase 120 U/L (46-116); Anion Gap 11 (5-15); Aspartate Aminotransferase 57 U/L (13-40); BUN/Creatinine Ratio 14.3 (10.0-20.0); Blood Urea Nitrogen 16 mg/dL (9-23); Calcium 8.5 mg/dL (8.7-10.4); Carbon Dioxide 22 mmol/L (20-30); Chloride 102 mmol/L (98-107); Glucose 71 mg/dL (74-106); Potassium 4.1 mmol/L (3.5-5.1); Sodium 135 mmol/L (136-145)
[2024-06-27 06:16] LABS: Bilirubin, Total 0.9 mg/dL (0.2-1.0); Total Protein 7.3 g/dL (5.7-8.2)
[2024-06-27 06:21] LABS: Red Cell Distribution Width 21.2 % (11.8-14.3)
[2024-06-27 08:46] VITALS: BP 119/68; PULSE 55; RESP 20; TEMP 97.6; O2SAT 99
[2024-06-27] MEDS: SPIRONOLACTONE 25 MG TAB PO SCH (11:23)
[2024-06-27 13:12] VITALS: BP 125/74; PULSE 58; RESP 20; TEMP 97.5; O2SAT 99
[2024-06-27 17:25] VITALS: BP 141/74; PULSE 59; RESP 20; TEMP 97.6; O2SAT 99
[2024-06-27] MEDS: metroNIDAZOLE 500 MG TAB PO SCH (21:44)
[2024-06-27] MEDS: DOCUSATE SOD 100 MG CAP PO PRN (21:45)
[2024-06-27 21:52] VITALS: BP 127/65; PULSE 63; RESP 18; TEMP 97.7; O2SAT 99
[2024-06-28 01:00] VITALS: BP 99/58; PULSE 60; RESP 17; TEMP 98.4; O2SAT 99
[2024-06-28 05:00] VITALS: BP 100/63; PULSE 57; RESP 17; TEMP 98.2; O2SAT 100
[2024-06-28 08:47] VITALS: BP 99/52; PULSE 53; RESP 17; TEMP 98.1; O2SAT 98
== END 2024-06-28 09:37 | disposition left against medical advice (07) ==
LOC: EDBD 10:26 → ER 10:26 → OVERFLOW 15:44 → WEST WING 21:05
PROVIDERS: ADMIT Internal Medicine; ATTEND Internal Medicine
DX: K80.10 Calculus of gallbladder with chronic cholecystitis without obstruction (principal); I85.00 Esophageal varices without bleeding; K76.6 Portal hypertension; K70.10 Alcoholic hepatitis without ascites; Z53.29 Procedure and treatment not carried out because of patient's decision for other reasons; D64.9 Anemia, unspecified; F17.210 Nicotine dependence, cigarettes, uncomplicated; F10.10 Alcohol abuse, uncomplicated; K74.60 Unspecified cirrhosis of liver; I50.9 Heart failure, unspecified; Z79.899 Other long term (current) drug therapy; Y90.9 Presence of alcohol in blood, level not specified
CPT/HCPCS: 36415; 71045; 74177; 76705; 80053; 80074; 80307; 80320; 81001; 82962; 83690; 83880; 84484; 85025; 85610; 85730; 86141; 87081; 93005; G0378; J0692; J2405; J2470; J3490

== ENCOUNTER 2024-07-29 10:40 | Inpatient (IN) | payer MEDICAID ==
[~2024-07-29] VITALS: Ht 182.9 cm; Wt 84.0 kg
[2024-07-29] VITALS (19 sets, daily range): BP systolic 81–150; BP diastolic 40–86; PULSE 67–98; RESP 12–23; TEMP 97–98.2; O2SAT 92–100
[~2024-07-29 10:40] MED LIST changes: +FURO40TA4; +NAP500T
[2024-07-29 11:44] LABS: Basophils # (auto) 0 10 ^3/uL (0-0.2); Eosinophils # (auto) 0 10 ^3/uL (0-0.8); Eosinophils % (auto) 0.1 % (0.0-7.0); Monocytes % (auto) 9.5 % (0.0-12.0); White Blood Cell 7.9 10^3/uL (4.4-10.8)
[2024-07-29 11:46] LABS: Basophils % (auto) 0.4 % (0.0-2.0); Hematocrit 18.8 % (41.0-53.0); Lymphocytes # (auto) 1.1 10 ^3/uL (0.4-5.4); Lymphocytes % (auto) 14.4 % (10.0-50.0); Mean Corpuscular Hemoglobin 26.2 pg (28.0-32.0); Mean Corpuscular Hgb Conc. 32.3 g/dL (32.0-36.0); Mean Corpuscular Volume 81.4 fL (80.0-100.0); Monocytes # (auto) 0.8 10 ^3/uL (0-1.3); Neutrophils % (auto) 75.6 % (37.0-80.0); Platelet Count (auto) 113 10^3/uL (140-450); Red Blood Cells 2.31 10^6/uL (4.5-5.90); Red Cell Distribution Width 17.6 % (11.8-14.3)
[2024-07-29] MEDS: SODIUM CHLORIDE 0.9% 1,000 ML IV ONE (11:47)
[2024-07-29] MEDS: PANTOPRAZOLE 40 MG/10 ML VIAL INJ IV ONE (11:50)
[2024-07-29 11:52] LABS: Hemoglobin 6.1 g/dL (13.5-17.5)
[2024-07-29] MEDS: OCTREOTIDE ACETATE 100 MCG in SODIUM CHL 0.9% 50 ML IV ONE (12:05)
[2024-07-29] MEDS ORDERED: ACETAMINOPHEN 325 MG TAB PO PRN (12:15)
[2024-07-29 12:20] LABS: Alanine Aminotransferase 26 U/L (7-40); Albumin 2.6 g/dL (3.2-4.8); Alkaline Phosphatase 82 U/L (46-116); Anion Gap 8 (5-15); Aspartate Aminotransferase 71 U/L (13-40); Blood Urea Nitrogen 45 mg/dL (9-23); Calcium 7.8 mg/dL (8.7-10.4); Carbon Dioxide 20 mmol/L (20-30); Chloride 113 mmol/L (98-107); Glucose 96 mg/dL (74-106); Lipase 51 U/L (12-53); Magnesium 1.9 mg/dL (1.6-2.6); Potassium 4.7 mmol/L (3.5-5.1); Sodium 141 mmol/L (136-145)
[2024-07-29] MEDS: OCTREOTIDE ACETATE 100 MCG/ML VL ONE (12:20)
[2024-07-29] MEDS: OCTREOTIDE ACETATE 500 MCG in SODIUM CHL 0.9% 99 ML IV SCH (12:20)
[2024-07-29 12:21] LABS: Total Protein 5.7 g/dL (5.7-8.2)
[2024-07-29 12:32] LABS: Anisocytosis Slight; Ovalocytes FEW; Platelet Estimate Decreased
[2024-07-29 12:42] LABS: Lactic Acid w/Reflex 3.1 mmol/L (0.4-2.0)
[2024-07-29 13:15] LABS: INR 1.39 (0.9-1.15); Partial Thromboplastin Time 30.9 SEC (24.5-34.5); Prothrombin Time 14.4 sec (9.3-11.8)
[2024-07-29] MEDS: IOHEXOL 300 MG/ML 100ML BOTTLE IJ ONE (14:00)
[2024-07-29] MEDS: PANTOPRAZOLE 80 MG in SODIUM CHL 0.9% 100 ML IV ONE (14:32)
[2024-07-29] MEDS: SODIUM CHLOR 0.9% PF (SALINE LOCK) 10ML VIAL/SYR IV SCH (16:36)
[2024-07-29] MEDS: ONDANSETRON HCL 4 MG/2 ML VIAL IV PRN (16:36)
[2024-07-29] MEDS: PANTOPRAZOLE 40mg/50ML NS AE 50 ML IV ONE (16:36)
[2024-07-29] MEDS: HYDROmorphone HCL 2 MG/ML VL/or syr IV PRN (16:38)
[2024-07-29] MEDS: ALBUMIN 25% 100 ML IV ONE (18:35)
[2024-07-29 20:13] LABS: Basophils # (auto) 0 10 ^3/uL (0-0.2); Eosinophils # (auto) 0 10 ^3/uL (0-0.8); Monocytes # (auto) 0.5 10 ^3/uL (0-1.3); Neutrophils # (auto) 3.4 10 ^3/uL (1.6-8.6); White Blood Cell 5.6 10^3/uL (4.4-10.8)
[2024-07-29 20:15] LABS: Basophils % (auto) 0.5 % (0.0-2.0); Eosinophils % (auto) 0.3 % (0.0-7.0); Hematocrit 22.5 % (41.0-53.0); Hemoglobin 7.3 g/dL (13.5-17.5); Lymphocytes # (auto) 1.7 10 ^3/uL (0.4-5.4); Lymphocytes % (auto) 29.5 % (10.0-50.0); Mean Corpuscular Hemoglobin 27.9 pg (28.0-32.0); Mean Corpuscular Hgb Conc. 32.4 g/dL (32.0-36.0); Mean Corpuscular Volume 85.9 fL (80.0-100.0); Monocytes % (auto) 9.4 % (0.0-12.0); Neutrophils % (auto) 60.3 % (37.0-80.0); Nucleated Red Blood Cells % 0.1 %; Red Blood Cells 2.62 10^6/uL (4.5-5.90)
[2024-07-29 20:20] LABS: Platelet Count (auto) 91 10^3/uL (140-450)
[2024-07-29] MEDS: diphenhdrAMINE HCL 50 MG/1 ML VL IV PRN (20:24)
[2024-07-29] MEDS: OCTREOTIDE ACETATE 500 MCG/ML VL ONE (22:22)
[2024-07-29] MEDS: PANTOPRAZOLE 40mg/50ML NS AE 50 ML IV SCH (22:43)
[2024-07-30] VITALS (21 sets, daily range): BP systolic 121–168; BP diastolic 65–97; PULSE 24–90; RESP 12–25; TEMP 96.2–98.1; O2SAT 96–99
[2024-07-30] MEDS: MELATONIN 5 MG TAB PO ONE (02:04)
[2024-07-30] MEDS: HYDROcodone-ACET 5/325MG TAB PO PRN (02:04)
[2024-07-30 04:13] LABS: Basophils # (auto) 0.1 10 ^3/uL (0-0.2); Basophils % (auto) 1.1 % (0.0-2.0); Lymphocytes # (auto) 1.4 10 ^3/uL (0.4-5.4); Monocytes # (auto) 0.4 10 ^3/uL (0-1.3); Neutrophils # (auto) 3.4 10 ^3/uL (1.6-8.6); White Blood Cell 5.3 10^3/uL (4.4-10.8)
[2024-07-30 04:17] LABS: Eosinophils # (auto) 0.1 10 ^3/uL (0-0.8); Hematocrit 20.6 % (41.0-53.0); Lymphocytes % (auto) 25.9 % (10.0-50.0); Mean Corpuscular Hemoglobin 27.8 pg (28.0-32.0); Mean Corpuscular Hgb Conc. 33.3 g/dL (32.0-36.0); Mean Corpuscular Volume 83.4 fL (80.0-100.0); Monocytes % (auto) 7.6 % (0.0-12.0); Neutrophils % (auto) 64.4 % (37.0-80.0); Nucleated Red Blood Cells % 0.2 %; Platelet Count (auto) 72 10^3/uL (140-450); Red Blood Cells 2.47 10^6/uL (4.5-5.90); Red Cell Distribution Width 16.8 % (11.8-14.3)
[2024-07-30 04:24] LABS: Alanine Aminotransferase 31 U/L (7-40); Albumin 2.8 g/dL (3.2-4.8); Alkaline Phosphatase 74 U/L (46-116); Anion Gap 7 (5-15); Aspartate Aminotransferase 89 U/L (13-40); BUN/Creatinine Ratio 43.6 (10.0-20.0); Blood Urea Nitrogen 41 mg/dL (9-23); Calcium 7.9 mg/dL (8.7-10.4); Carbon Dioxide 21 mmol/L (20-30); Chloride 114 mmol/L (98-107); Glucose 101 mg/dL (74-106); Potassium 4.2 mmol/L (3.5-5.1); Sodium 142 mmol/L (136-145)
[2024-07-30 04:25] LABS: Bilirubin, Total 1.2 mg/dL (0.2-1.0); Total Protein 5.8 g/dL (5.7-8.2)
[2024-07-30 04:42] LABS: Hemoglobin 6.9 g/dL (13.5-17.5)
[2024-07-30 05:12] LABS: Platelet Estimate Decreased
[2024-07-30 09:24] LABS: Basophils # (auto) 0 10 ^3/uL (0-0.2); Eosinophils # (auto) 0.1 10 ^3/uL (0-0.8); Lymphocytes # (auto) 1.2 10 ^3/uL (0.4-5.4); Lymphocytes % (auto) 26.9 % (10.0-50.0); Neutrophils # (auto) 2.9 10 ^3/uL (1.6-8.6); Nucleated Red Blood Cells % 0.1 %; White Blood Cell 4.6 10^3/uL (4.4-10.8)
[2024-07-30 09:27] LABS: Basophils % (auto) 0.5 % (0.0-2.0); Eosinophils % (auto) 1.5 % (0.0-7.0); Hematocrit 21.5 % (41.0-53.0); Mean Corpuscular Hemoglobin 27.6 pg (28.0-32.0); Mean Corpuscular Hgb Conc. 32.4 g/dL (32.0-36.0); Mean Corpuscular Volume 85.2 fL (80.0-100.0); Monocytes # (auto) 0.3 10 ^3/uL (0-1.3); Monocytes % (auto) 7.7 % (0.0-12.0); Neutrophils % (auto) 63.4 % (37.0-80.0); Platelet Count (auto) 88 10^3/uL (140-450); Red Blood Cells 2.52 10^6/uL (4.5-5.90); Red Cell Distribution Width 16.4 % (11.8-14.3)
[2024-07-30] MEDS ORDERED: dilTIAZem 25 MG/5 ML VIAL IV ONE (22:15)
== END 2024-07-30 14:49 | disposition left against medical advice (07) | DRG 280 ==
LOC: ER 10:40 → EDBD 10:40 → EDSEX 10:40 → TELE 12:21 → ICU WEST 13:53
PROVIDERS: ADMIT Internal Medicine; ATTEND Internal Medicine
PROC: 30233N1 Transfusion of Nonautologous Red Blood Cells into Peripheral Vein, Percutaneous Approach (ICD-10-PCS; principal; 2024-07-29)
DX: K70.30 Alcoholic cirrhosis of liver without ascites (principal); I85.11 Secondary esophageal varices with bleeding; K76.6 Portal hypertension; D68.9 Coagulation defect, unspecified; D62 Acute posthemorrhagic anemia; K80.10 Calculus of gallbladder with chronic cholecystitis without obstruction; D69.59 Other secondary thrombocytopenia; I50.9 Heart failure, unspecified; F17.210 Nicotine dependence, cigarettes, uncomplicated; Z53.29 Procedure and treatment not carried out because of patient's decision for other reasons; F10.20 Alcohol dependence, uncomplicated; G62.9 Polyneuropathy, unspecified
CPT/HCPCS: 36415; 71045; 74177; 80053; 82140; 83605; 83690; 83735; 83880; 84484; 85025; 85610; 85730; 86850; 86900; 86901; 86920; 87081; 93005; 96374; G0378; J2405; J2470; P9047

== ENCOUNTER 2024-08-02 16:18 | Inpatient (IN) | payer MEDICAID ==
[~2024-08-02] VITALS: Ht 177.8 cm; Wt 98.2 kg
[2024-08-02 16:54] LABS: Basophils # (auto) 0 10 ^3/uL (0-0.2); Eosinophils # (auto) 0.1 10 ^3/uL (0-0.8); Hemoglobin 8.4 g/dL (13.5-17.5); Monocytes # (auto) 0.5 10 ^3/uL (0-1.3); Monocytes % (auto) 9.1 % (0.0-12.0); White Blood Cell 5.4 10^3/uL (4.4-10.8)
[2024-08-02 16:55] VITALS: PULSE 89; RESP 17; O2SAT 96
[2024-08-02 16:56] LABS: Basophils % (auto) 0.7 % (0.0-2.0); Eosinophils % (auto) 1.8 % (0.0-7.0); Hematocrit 25.3 % (41.0-53.0); Lymphocytes # (auto) 1.2 10 ^3/uL (0.4-5.4); Lymphocytes % (auto) 22.3 % (10.0-50.0); Mean Corpuscular Hemoglobin 28.3 pg (28.0-32.0); Mean Corpuscular Hgb Conc. 33.1 g/dL (32.0-36.0); Mean Corpuscular Volume 85.4 fL (80.0-100.0); Neutrophils # (auto) 3.6 10 ^3/uL (1.6-8.6); Neutrophils % (auto) 66.1 % (37.0-80.0); Platelet Count (auto) 95 10^3/uL (140-450); Red Blood Cells 2.96 10^6/uL (4.5-5.90); Red Cell Distribution Width 18.1 % (11.8-14.3)
[2024-08-02 17:12] LABS: INR 1.17 (0.9-1.15); Partial Thromboplastin Time 27.7 SEC (24.5-34.5); Prothrombin Time 12.3 sec (9.3-11.8)
[2024-08-02 17:13] LABS: Alanine Aminotransferase 55 U/L (7-40); Albumin 3.3 g/dL (3.2-4.8); Alkaline Phosphatase 132 U/L (46-116); Anion Gap 10 (5-15); Aspartate Aminotransferase 103 U/L (13-40); BUN/Creatinine Ratio 17.2 (10.0-20.0); Blood Urea Nitrogen 15 mg/dL (9-23); Calcium 8.2 mg/dL (8.7-10.4); Carbon Dioxide 18 mmol/L (20-30); Chloride 109 mmol/L (98-107); Glucose 126 mg/dL (74-106); Potassium 3.6 mmol/L (3.5-5.1); Sodium 137 mmol/L (136-145); Total Protein 6.5 g/dL (5.7-8.2)
[2024-08-02] MEDS: PANTOPRAZOLE 40 MG/10 ML VIAL INJ IV ONE (17:14)
[2024-08-02] MEDS: PANTOPRAZOLE 40mg/50ML NS AE 50 ML IV ONE (17:14)
[2024-08-02] MEDS: OCTREOTIDE ACETATE 100 MCG in SODIUM CHL 0.9% 50 ML IV ONE (17:14)
[2024-08-02 17:25] LABS: Lactic Acid w/Reflex 2.3 mmol/L (0.4-2.0)
[2024-08-02] MEDS: ONDANSETRON HCL 4 MG/2 ML VIAL IV ONE ×2 (17:42→20:58)
[2024-08-02] MEDS: MORPHINE SULFATE 4 MG/ML SYR/VIAL IV ONE ×2 (17:43→20:53)
[2024-08-02 17:44] LABS: Urine Bacteria None Seen /hpf (None Seen)
[2024-08-02 18:00] LABS: Urine Blood Negative /uL (Negative); Urine Clarity Clear (Clear); Urine Color Light-Yellow (Yellow); Urine Protein, UAD Negative (Negative); Urine Specific Gravity 1.004 (1.001-1.035); Urine Urobilinogen Normal (Negative); Urine WBC <1 /hpf (0 - 3); Urine pH 5.5 (5.0-9.0)
[2024-08-02 18:05] LABS: Amphetamine Screen, Urine Neg (NEGATIVE); Barbiturate Scree,Urine Neg (NEGATIVE); Benzodiazephine Screen, Urine Neg (NEGATIVE); Cocaine Screen, Urine Neg (NEGATIVE)
[2024-08-02 18:06] LABS: Cannabinoid Screen, Urine Neg (NEGATIVE); Opiate Scree,Urine Neg (NEGATIVE); Phencyclidine Screen, Urine Neg (NEGATIVE)
[2024-08-02 19:40] VITALS: PULSE 80; RESP 15; O2SAT 95
[2024-08-02] MEDS ORDERED: MORPHINE SULFATE INJ 2 MG/ml SYRG IV PRN (20:45)
[2024-08-02] MEDS ORDERED: NITROGLYCERIN 0.4 MG SL TAB SL PRN (20:45)
[2024-08-02] MEDS ORDERED: ONDANSETRON HCL 4 MG/2 ML VIAL IV PRN (20:45)
[2024-08-02] MEDS: SODIUM CHLORIDE 0.9% 1,000 ML IV ONE (21:08)
[2024-08-02 21:42] LABS: Hematocrit 22.2 % (41.0-53.0); Hemoglobin 7.2 g/dL (13.5-17.5)
[2024-08-02] MEDS: PANTOPRAZOLE 40mg/50ML NS AE 50 ML IV SCH (21:45)
[2024-08-02] MEDS: SODIUM CHLORIDE 0.9% 1,000 ML IV SCH (22:15)
[2024-08-02 22:26] VITALS: BP 147/80; PULSE 79; PULSE 84; RESP 19; TEMP 97.5; O2SAT 98
[2024-08-02] MEDS ORDERED: HYDROcodone-ACET 5/325MG TAB PO PRN (23:00)
[2024-08-02] MEDS: HYDROcodone-ACET 5/325MG TAB PO PRN (23:39)
[2024-08-03] VITALS (10 sets, daily range): BP systolic 122–149; BP diastolic 67–84; PULSE 62–78; RESP 16–20; TEMP 96.3–98.6; O2SAT 93–98
[2024-08-03] MEDS: MORPHINE SULFATE INJ 2 MG/ml SYRG IV ONE (03:07)
[2024-08-03 06:53] LABS: Alanine Aminotransferase 36 U/L (7-40); Albumin 2.6 g/dL (3.2-4.8); Alkaline Phosphatase 129 U/L (46-116); Anion Gap 6 (5-15); Aspartate Aminotransferase 82 U/L (13-40); BUN/Creatinine Ratio 14.5 (10.0-20.0); Bilirubin, Total 0.8 mg/dL (0.2-1.0); Blood Urea Nitrogen 12 mg/dL (9-23); Calcium 7.5 mg/dL (8.7-10.4); Carbon Dioxide 22 mmol/L (20-30); Chloride 113 mmol/L (98-107); Glucose 110 mg/dL (74-106); Potassium 3.8 mmol/L (3.5-5.1); Sodium 141 mmol/L (136-145); Total Protein 5.6 g/dL (5.7-8.2)
[2024-08-03 06:57] LABS: Basophils # (auto) 0 10 ^3/uL (0-0.2); Eosinophils # (auto) 0 10 ^3/uL (0-0.8); Lymphocytes # (auto) 0.6 10 ^3/uL (0.4-5.4); Red Blood Cells 2.56 10^6/uL (4.5-5.90)
[2024-08-03 07:03] LABS: Basophils % (auto) 0.8 % (0.0-2.0); Eosinophils % (auto) 2.3 % (0.0-7.0); Hematocrit 22.1 % (41.0-53.0); Hemoglobin 7.2 g/dL (13.5-17.5); Lymphocytes % (auto) 30.8 % (10.0-50.0); Mean Corpuscular Hemoglobin 28.2 pg (28.0-32.0); Mean Corpuscular Hgb Conc. 32.7 g/dL (32.0-36.0); Mean Corpuscular Volume 86.3 fL (80.0-100.0); Monocytes # (auto) 0.2 10 ^3/uL (0-1.3); Monocytes % (auto) 12.2 % (0.0-12.0); Neutrophils # (auto) 1.1 10 ^3/uL (1.6-8.6); Neutrophils % (auto) 53.9 % (37.0-80.0); Nucleated Red Blood Cells % 0.3 %; Red Cell Distribution Width 17.9 % (11.8-14.3)
[2024-08-03 07:19] LABS: Platelet Count (auto) 55 10^3/uL (140-450)
[2024-08-03 09:06] LABS: INR 1.27 (0.9-1.15); Partial Thromboplastin Time 29.7 SEC (24.5-34.5); Prothrombin Time 13.2 sec (9.3-11.8)
[2024-08-03] MEDS: MORPHINE SULFATE INJ 2 MG/ml SYRG IV PRN (09:33)
[2024-08-03] MEDS: OCTREOTIDE ACETATE 500 MCG in SODIUM CHL 0.9% 99 ML IV SCH (10:48)
[2024-08-03] MEDS: LORazepam MDV 2MG/ML 50 MG in SODIUM CHL 0.9% 25 ML IV SCH (11:11)
[2024-08-03 11:19] LABS: % Iron Saturation 4.5 % (20-55)
[2024-08-03 11:28] LABS: Ferritin 20.9 ng/mL (22-322); Folate (Folic Acid) 22.18 ng/mL (>5.38)
[2024-08-03] MEDS: LIDOCAINE 5% TOPICAL PATCH TOP SCH (13:21)
[2024-08-03] MEDS: FOLIC ACID 1 MG, MULTIPLE VITAMIN 10 ML, MAGNESIUM SULF SDV 50% 8 MEQ, THIAMINE INJ 100... INJ SCH (17:14)
[2024-08-03] MEDS: MELATONIN 5 MG TAB PO ONE (22:27)
[2024-08-03] MEDS: PANTOPRAZOLE 40 MG/10 ML VIAL INJ IV SCH (22:28)
[2024-08-04] VITALS (8 sets, daily range): BP systolic 114–159; BP diastolic 67–84; PULSE 64–78; RESP 17–18; TEMP 97.5–98.6; O2SAT 94–97
[2024-08-04 09:55] LABS: Basophils # (auto) 0 10 ^3/uL (0-0.2); Eosinophils # (auto) 0 10 ^3/uL (0-0.8); Hemoglobin 8.7 g/dL (13.5-17.5); Lymphocytes # (auto) 0.6 10 ^3/uL (0.4-5.4); Lymphocytes % (auto) 29.6 % (10.0-50.0); Mean Corpuscular Hemoglobin 27.8 pg (28.0-32.0); Monocytes # (auto) 0.2 10 ^3/uL (0-1.3); Neutrophils # (auto) 1.2 10 ^3/uL (1.6-8.6); White Blood Cell 2.1 10^3/uL (4.4-10.8)
[2024-08-04 10:00] LABS: Basophils % (auto) 0.4 % (0.0-2.0); Eosinophils % (auto) 1.8 % (0.0-7.0); Hematocrit 26.8 % (41.0-53.0); Mean Corpuscular Hgb Conc. 32.6 g/dL (32.0-36.0); Mean Corpuscular Volume 85.3 fL (80.0-100.0); Monocytes % (auto) 9.8 % (0.0-12.0); Neutrophils % (auto) 58.4 % (37.0-80.0); Nucleated Red Blood Cells % 0.3 %; Platelet Count (auto) 62 10^3/uL (140-450); Red Blood Cells 3.14 10^6/uL (4.5-5.90); Red Cell Distribution Width 18.8 % (11.8-14.3)
[2024-08-04 10:04] LABS: Alanine Aminotransferase 45 U/L (7-40); Albumin 2.9 g/dL (3.2-4.8); Alkaline Phosphatase 107 U/L (46-116); Anion Gap 5 (5-15); Aspartate Aminotransferase 81 U/L (13-40); BUN/Creatinine Ratio 12.5 (10.0-20.0); Blood Urea Nitrogen 11 mg/dL (9-23); Calcium 7.9 mg/dL (8.7-10.4); Carbon Dioxide 22 mmol/L (20-30); Chloride 114 mmol/L (98-107); Glucose 100 mg/dL (74-106); Potassium 4.1 mmol/L (3.5-5.1); Sodium 141 mmol/L (136-145)
[2024-08-04 10:05] LABS: Bilirubin, Total 1.1 mg/dL (0.2-1.0); Total Protein 5.9 g/dL (5.7-8.2)
[2024-08-04] MEDS ORDERED: ONDANSETRON HCL 4 MG/2 ML VIAL IV ONE ×2 (15:43→17:00)
[2024-08-04] MEDS ORDERED: MIDAZOLAM HCL 2MG/2ML 2ml VIAL (1mg/ml) ONE (16:58)
[2024-08-04] MEDS: SUCRALFATE 1 GM/10 ML ORAL SUSP GT SCH (21:33)
[2024-08-04] MEDS: GABAPENTIN 400 MG CAP PO SCH (21:33)
[2024-08-04] MEDS: MELATONIN 5 MG TAB PO SCH (21:34)
[2024-08-04] MEDS ORDERED: MELATONIN 5 MG TAB PO ONE (22:00)
[2024-08-05] VITALS (8 sets, daily range): BP systolic 130–144; BP diastolic 65–75; PULSE 64–80; RESP 16–18; TEMP 36.7; O2SAT 90–97
[2024-08-05 10:45] LABS: Basophils # (auto) 0 10 ^3/uL (0-0.2); Basophils % (auto) 0.3 % (0.0-2.0); Eosinophils # (auto) 0 10 ^3/uL (0-0.8); Eosinophils % (auto) 1.6 % (0.0-7.0); Hematocrit 25.4 % (41.0-53.0); Hemoglobin 8.1 g/dL (13.5-17.5); Lymphocytes # (auto) 0.4 10 ^3/uL (0.4-5.4); Lymphocytes % (auto) 17.2 % (10.0-50.0); Mean Corpuscular Hemoglobin 27.2 pg (28.0-32.0); Mean Corpuscular Hgb Conc. 31.7 g/dL (32.0-36.0); Mean Corpuscular Volume 85.9 fL (80.0-100.0); Monocytes # (auto) 0.2 10 ^3/uL (0-1.3); Monocytes % (auto) 8.5 % (0.0-12.0); Neutrophils # (auto) 1.7 10 ^3/uL (1.6-8.6); Neutrophils % (auto) 72.4 % (37.0-80.0); Platelet Count (auto) 58 10^3/uL (140-450); Red Blood Cells 2.96 10^6/uL (4.5-5.90); Red Cell Distribution Width 18.6 % (11.8-14.3); White Blood Cell 2.4 10^3/uL (4.4-10.8)
== END 2024-08-05 15:44 | disposition home or self-care (01) | DRG 241 ==
LOC: ER 16:18 → TELE-WESTW 20:47 → TELE 20:47 → TELE-WESTW 22:26
PROVIDERS: ADMIT Internal Medicine Pulmonary Disease; ATTEND Internal Medicine Pulmonary Disease
PROC: 30233N1 Transfusion of Nonautologous Red Blood Cells into Peripheral Vein, Percutaneous Approach (ICD-10-PCS; 2024-08-03)
PROC: 0DB68ZX Excision of Stomach, Via Natural or Artificial Opening Endoscopic, Diagnostic (ICD-10-PCS; 2024-08-04)
PROC: 0DB98ZX Excision of Duodenum, Via Natural or Artificial Opening Endoscopic, Diagnostic (ICD-10-PCS; principal; 2024-08-04 16:50)
DX: K29.71 Gastritis, unspecified, with bleeding (principal); D61.818 Other pancytopenia; D69.6 Thrombocytopenia, unspecified; K76.6 Portal hypertension; D50.0 Iron deficiency anemia secondary to blood loss (chronic); F17.210 Nicotine dependence, cigarettes, uncomplicated; F10.10 Alcohol abuse, uncomplicated; I50.9 Heart failure, unspecified; K74.60 Unspecified cirrhosis of liver; K80.20 Calculus of gallbladder without cholecystitis without obstruction; Y90.9 Presence of alcohol in blood, level not specified; K44.9 Diaphragmatic hernia without obstruction or gangrene; K31.9 Disease of stomach and duodenum, unspecified
CPT/HCPCS: 36415; 70450; 71045; 76705; 80053; 80307; 80320; 81001; 82140; 82728; 82746; 83010; 83540; 83550; 83605; 85014; 85018; 85025; 85384; 85610; 85730; 86850; 86900; 86901; 86920; G0378; J2250; J2405; J2470; J2704

== ENCOUNTER 2024-08-06 14:26 | Inpatient (IN) | payer MEDICAID ==
[~2024-08-06] VITALS: Ht 177.8 cm; Wt 93.8 kg
[2024-08-06 15:27] LABS: Basophils # (auto) 0 10 ^3/uL (0-0.2); Basophils % (auto) 0.4 % (0.0-2.0); Eosinophils # (auto) 0 10 ^3/uL (0-0.8); Lymphocytes # (auto) 0.8 10 ^3/uL (0.4-5.4); Monocytes # (auto) 0.5 10 ^3/uL (0-1.3); Neutrophils # (auto) 2.3 10 ^3/uL (1.6-8.6); White Blood Cell 3.6 10^3/uL (4.4-10.8)
[2024-08-06 15:29] LABS: Eosinophils % (auto) 0.9 % (0.0-7.0); Hematocrit 25.1 % (41.0-53.0); Hemoglobin 8.1 g/dL (13.5-17.5); Lymphocytes % (auto) 21.4 % (10.0-50.0); Mean Corpuscular Hemoglobin 27.6 pg (28.0-32.0); Mean Corpuscular Hgb Conc. 32.1 g/dL (32.0-36.0); Monocytes % (auto) 12.7 % (0.0-12.0); Neutrophils % (auto) 64.6 % (37.0-80.0); Nucleated Red Blood Cells % 0.1 %; Platelet Count (auto) 63 10^3/uL (140-450); Red Blood Cells 2.92 10^6/uL (4.5-5.90); Red Cell Distribution Width 18.9 % (11.8-14.3)
[2024-08-06 15:45] LABS: Alanine Aminotransferase 34 U/L (7-40); Alkaline Phosphatase 120 U/L (46-116); Anion Gap 14 (5-15); Aspartate Aminotransferase 65 U/L (13-40); Blood Urea Nitrogen 9 mg/dL (9-23); Calcium 8.1 mg/dL (8.7-10.4); Carbon Dioxide 15 mmol/L (20-30); Chloride 109 mmol/L (98-107); Glucose 93 mg/dL (74-106); Potassium 3.4 mmol/L (3.5-5.1); Sodium 138 mmol/L (136-145)
[2024-08-06 15:46] LABS: Bilirubin, Total 0.9 mg/dL (0.2-1.0); Total Protein 6.1 g/dL (5.7-8.2)
[2024-08-06] MEDS: CLINDAMYCIN 600MG IV 50 ML IV ONE (16:26)
[2024-08-06 16:34] LABS: INR 1.17 (0.9-1.15); Partial Thromboplastin Time 28.8 SEC (24.5-34.5); Prothrombin Time 12.3 sec (9.3-11.8)
[2024-08-06] MEDS: HYDROcodone-ACET 10/325MG TAB PO ONE (16:42)
[2024-08-07 00:45] VITALS: PULSE 60; RESP 17; O2SAT 98
[2024-08-07] MEDS: GABAPENTIN 400 MG CAP PO SCH (01:21)
[2024-08-07] MEDS: ceFAZolin 1GM/50ML 50 ML IV SCH (01:21)
[2024-08-07] MEDS: traMADol HCL 50 MG TAB PO PRN (01:38)
[2024-08-07] MEDS: oxyCODONE HCL 5MG TAB PO PRN (05:53)
[2024-08-07] MEDS: PANTOPRAZOLE 40 MG TAB PO SCH (05:54)
[2024-08-07 06:12] LABS: Basophils # (auto) 0 10 ^3/uL (0-0.2); Basophils % (auto) 0.3 % (0.0-2.0); Eosinophils # (auto) 0 10 ^3/uL (0-0.8); Hematocrit 24.1 % (41.0-53.0); Hemoglobin 7.8 g/dL (13.5-17.5); Lymphocytes # (auto) 0.4 10 ^3/uL (0.4-5.4); Monocytes # (auto) 0.3 10 ^3/uL (0-1.3); Monocytes % (auto) 12.2 % (0.0-12.0); Red Cell Distribution Width 18.4 % (11.8-14.3); White Blood Cell 2.1 10^3/uL (4.4-10.8)
[2024-08-07 06:15] LABS: Eosinophils % (auto) 1.7 % (0.0-7.0); Mean Corpuscular Hemoglobin 27.4 pg (28.0-32.0); Mean Corpuscular Hgb Conc. 32.3 g/dL (32.0-36.0); Mean Corpuscular Volume 84.9 fL (80.0-100.0); Neutrophils # (auto) 1.5 10 ^3/uL (1.6-8.6); Neutrophils % (auto) 68.8 % (37.0-80.0); Nucleated Red Blood Cells % 0.4 %; Platelet Count (auto) 58 10^3/uL (140-450); Red Blood Cells 2.84 10^6/uL (4.5-5.90)
[2024-08-07 08:00] VITALS: TEMP 97.8
[2024-08-07 09:07] VITALS: PULSE 69; RESP 14; O2SAT 95
[2024-08-07] MEDS: FOLIC ACID 1 MG TAB PO SCH (09:50)
[2024-08-07] MEDS: THIAMINE HCL 100 MG TAB PO SCH (09:50)
[2024-08-07] MEDS: FUROSEMIDE 40 MG TAB PO SCH (09:51)
[2024-08-07] MEDS: ENOXAPARIN SOD 40 MG/0.4 ML SYRINGE SC SCH (09:51)
[2024-08-07] MEDS: MORPHINE SULFATE INJ 2 MG/ml SYRG IV PRN (10:06)
[2024-08-07 12:00] VITALS: BP 129/74; PULSE 74; RESP 16; O2SAT 100
== END 2024-08-07 13:28 | disposition left against medical advice (07) | DRG 383 ==
LOC: ER 14:26 → OVERFLOW 21:56
PROVIDERS: ADMIT Nurse Practitioner; ATTEND Nurse Practitioner Acute Care
DX: L03.113 Cellulitis of right upper limb (principal); D69.6 Thrombocytopenia, unspecified; K92.0 Hematemesis; D63.8 Anemia in other chronic diseases classified elsewhere; K92.2 Gastrointestinal hemorrhage, unspecified; I50.9 Heart failure, unspecified; F10.20 Alcohol dependence, uncomplicated; I11.0 Hypertensive heart disease with heart failure; Z53.29 Procedure and treatment not carried out because of patient's decision for other reasons; K74.60 Unspecified cirrhosis of liver; Y90.9 Presence of alcohol in blood, level not specified; Z79.1 Long term (current) use of non-steroidal anti-inflammatories (NSAID); Z79.899 Other long term (current) drug therapy
CPT/HCPCS: 36415; 80053; 85025; 85610; 85730; 86850; 86900; 86901; 93971; 96365; G0378; J3490

== ENCOUNTER 2024-09-26 14:08 | Inpatient (IN) | payer MEDICAID ==
[~2024-09-26] VITALS: Ht 177.8 cm; Wt 88.0 kg
[2024-09-26] VITALS (10 sets, daily range): BP systolic 101–125; BP diastolic 42–65; PULSE 65–76; RESP 13–25; TEMP 98–98.7; O2SAT 100
--- NOTE | 2024-09-26 14:11 | ED.PDOC ---
SOB-HPI HPI Comments HPI: Poor Historian. 64-year-old male brought in by ambulance from home for nonspecific shortness of breath with associated dizziness and weakness. Patient has history of liver cirrhosis and hep C and alcohol abuse. Patient states he had a fall approximately hour prior to arrival from weakness and he thinks he may have hit his head but denies any pain anywhere in his body. Vitals: Temp:98.7 F Heart rate: 81 RR: 1 BP:100/61 02 sat: 97% on room air PMH: Hep C, liver failure, esophageal varices, cirrhosis, neuropathy, previous blood transfusions for GI bleed PSH: unknown social history: denies tobacco use, heavy ETOH use, denies drug use medications: unknown, allergies: NKDA REVIEW OF SYSTEMS: CONSTITUTIONAL: Denies acute: fever, diaphoresis, chills, HEAD: Denies acute: headache, photophobia Eyes: Denies acute: Double vision, vision loss, eye pain, eye discharge. EARS: Denies acute: tinnitus, hearing loss, ear discharge, ear pain, THROAT: Denies acute: sore throat, swelling, difficulty swallowing , pain with swallowing, change in voice. NECK: Denies acute: neck pain, neck swelling, stiff neck. HEART: Denies acute : chest pain, palpitations, LUNGS: Denies acute: wheezing, cough, hemoptysis ABDOMEN: Denies acute: abdominal pain, diarrhea, melena , hematochezia SKIN: Denies acute: rash, redness, lesions, itchiness. EXTREMITIES: Denies acute: calf pain, numbness, tingling, weakness, denies pain in extremity. Denies acute: Low back pain. Neuro: Denies acute: focal neurological deficit, motor or sensory focal neurological deficit, tremors, seizure like activity, confusion, change in mental status, loss of bowel or bladder function, cauda equina like symptoms. : Denies acute: dysuria, hematuria, flank pain, increase in urinary frequency. PSYCH: Denies acute: hallucination, suicidal ideation, homicidal ideation. PHYSICAL EXAM: General: no acute distress, awake and alert. Head: normocephalic, atraumatic. Neck: supple, trachea is midline, no swelling. Throat: Normal phonation. Eyes:, no erythema, no purulent discharge, no proptosis, no icterus. Heart: regular rate, regular rhythm, no significant murmur appreciated. Lungs: no apparent respiratory distress, Able to speak in full sentences. No wheezing, no rhonchi, no crackles. No stridors Clear to auscultation bilaterally. Abdomen: non tender to palpation, non distended, soft, no guarding, no rebound, + bowel sounds. Neuro: Awake, Alert, oriented to name, self, situation, follows commands GCS=15. Speech is normal. Skin: no petechia, no purpura, no cyanosis, slightly-pale, slightly jaundice. Lower extremities: --trace bilateral - Pitting edema no deformity, no focal swelling, no calf TTP. Makes eye contact. moves all four extremities. Face: no apparent facial droop. Chief Complaint: shortness of breath Time Seen by MD: 14:10 Primary Care Provider: NONE Reviewed notes: Nurses Notes, Medications, Allergies Information Source: Patient Mode of Arrival: EMS Brought in by: EMS Past Medical History PAST MEDICAL HISTORY: Anemia, CHF, Liver Surgical History: Denies all surgeries Family History Family History: Reviewed,noncontributory to illness Social History Smoker: Non-Smoker, Unknown Alcohol: Heavy Drugs: Denies Drug Use, Unknown Lives In: Home Was a procedure done? Was a procedure done?: No Differential Dx Differential Diagnosis: Other (DDx include ACS, unstable angina, anxiety, PE, pneumothroax, neoplasm, cardiac ischemia, COPD, asthma, CHF, pleural effusion, tobacco abuse, pneumonia, hypoxia, hypercapnia, anemia., infection/sepsis., pulmonary edema. Asthma, Cardiac tamponade, infection.) X-Ray, Labs, Meds, VS Vital Signs Date Time Temp Pulse Resp B/P (MAP) Pulse Ox O2 Delivery O2 Flow Rate FiO2 09/26/24 20:55 98.1 71 15 101/60 98.1 09/26/24 20:34 98.4 75 25 113/59 98.4 09/26/24 20:03 98.0 76 18 105/57 98.0 09/26/24 20:00 71 09/26/24 19:58 117/45 09/26/24 19:30 98.1 67 21 117/44 (68) 100 98.1 09/26/24 19:30 67 21 100 Room Air* 0 21 09/26/24 19:30 98.1 67 21 117/45 98.1 09/26/24 17:50 98.2 76 14 111/52 (71) 100 98.2 09/26/24 17:50 98.2 76 14 111/52 98.2 09/26/24 17:50 76 14 100 Room Air* 0 21 09/26/24 17:35 98.2 75 21 103/42 98.2 09/26/24 14:17 98.7 81 18 100/61 (74) 97 Lab Test 09/26/24 15:44 09/26/24 14:55 09/26/24 14:53 Range/Units Troponin I High Sensitivity < 3 L < 3 L </=54 ng/L White Blood Count 3.9 L 4.4-10.8 10^3/uL Red Blood Count 2.39 L 4.5-5.90 10^6/uL Hemoglobin 5.7 *L 13.5-17.5 g/dL Hematocrit 18.4 L 41.0-53.0 % Mean Corpuscular Volume 77.0 L 80.0-100.0 fL Mean Corpuscular Hemoglobin 24.0 L 28.0-32.0 pg Mean Corpuscular Hemoglobin Concent 31.1 L 32.0-36.0 g/dL Red Cell Distribution Width 19.2 H 11.8-14.3 % Platelet Count 126 L 140-450 10^3/uL Mean Platelet Volume 7.9 6.9-10.8 fL Neutrophils (%) (Auto) 70.2 37.0-80.0 % Lymphocytes (%) (Auto) 18.3 10.0-50.0 % Monocytes (%) (Auto) 10.2 0.0-12.0 % Eosinophils (%) (Auto) 0.9 0.0-7.0 % Basophils (%) (Auto) 0.4 0.0-2.0 % Neutrophils # (Auto) 2.8 1.6-8.6 10 ^3/uL Lymphocytes # (Auto) 0.7 0.4-5.4 10 ^3/uL Monocytes # (Auto) 0.4 0-1.3 10 ^3/uL Eosinophils # (Auto) 0 0-0.8 10 ^3/uL Basophils # (Auto) 0 0-0.2 10 ^3/uL Nucleated Red Blood Cells 0.1 % Prothrombin Time 13.4 H 9.3-11.8 sec Prothrombin Time INR 1.29 H 0.9-1.15 Activated Partial Thromboplast Time 26.9 24.5-34.5 SEC Sodium Level 139 136-145 mmol/L Potassium Level 4.6 3.5-5.1 mmol/L Chloride Level 108 H 98-107 mmol/L Carbon Dioxide Level 28 20-31 mmol/L Anion Gap 3 L 5-15 Blood Urea Nitrogen 21 9-23 mg/dL Creatinine 0.82 0.700-1.30 mg/dL Glomerular Filtration Rate Calc 99 >90 mL/min BUN/Creatinine Ratio 25.6 H 10.0-20.0 Serum Glucose 102 74-106 mg/dL Calcium Level 7.6 L 8.7-10.4 mg/dL Magnesium Level 2.0 1.6-2.6 mg/dL Total Bilirubin 0.5 0.2-1.0 mg/dL Aspartate Amino Transferase (AST) 48 H 13-40 U/L Alanine Aminotransferase (ALT) 21 7-40 U/L Alkaline Phosphatase 115 46-116 U/L B-Type Natriuretic Peptide 307.76 0-100 pg/mL Total Protein 5.2 L 5.7-8.2 g/dL Albumin 2.4 L 3.2-4.8 g/dL Plasma/Serum Blood Alcohol 3.5 <10 mg/dL Lactic Acid Level 1.0 0.4-2.0 mmol/L Ammonia 57 H 11-32 umol/L Current Medications Medications (Trade) Dose Ordered Sig/Jesika Route Start Time Stop Time Status Last Admin Pantoprazole Sodium (Protonix) 40 mg ONCE ONCE IV 09/26/24 14:45 09/26/24 14:50 DC 09/26/24 15:16 Octreotide Acetate 100 mcg/ Sodium Chloride 51 ml @ 204 mls/hr ONCE ONCE IV 09/26/24 14:45 09/26/24 14:59 DC 09/26/24 14:45 Octreotide Acetate 500 mcg/ Sodium Chloride 100 ml @ 10 mls/hr Q10H IV 09/26/24 14:45 09/26/24 15:39 Ondansetron HCl (Zofran) 8 mg ONCE ONCE IV 09/26/24 14:45 09/26/24 14:50 DC 09/26/24 15:16 Sodium Chloride 1,000 ml @ 1,000 mls/hr Q1H ONCE IV 09/26/24 14:45 09/26/24 15:44 DC 09/26/24 14:45 Lactulose 60 ml ONCE ONCE PO 09/26/24 16:00 09/26/24 16:40 DC 09/26/24 16:48 Acetaminophen/ Hydrocodone Bitart ([place] 5/325MG Tab) 1 tab ONCE ONCE PO 09/26/24 17:00 09/26/24 17:08 DC 09/26/24 17:16 Ceftriaxone Sodium 50 ml @ 100 mls/hr ONCE ONCE IV 09/26/24 19:30 09/26/24 19:59 DC 09/26/24 19:49 Fentanyl Citrate 100 mcg ONCE ONCE IV 09/26/24 20:00 09/26/24 20:01 DC 09/26/24 19:58 [place] [address] Ph: [phone] DIAGNOSTIC IMAGING Diagnostic Imaging Report : [id number] Signed PATIENT: MARY GRACE CAMEJO ACCT: [id number] UNIT: [id number] : 1960 LOC: ER ROOM / BED: / AGE / SEX: 64 / M ADM STATUS: REG ER SERVICE 1414 ORDERING PHYSICIAN: KALYANI PRECIADO DO PROCEDURE(s): CS2 - CERVICAL WITHOUT CONTRAST REASON: SOB/dizzy/ fall ORDER NUMBER(s): [id number], ACCESSION NUMBER(s): [id number] EXAM: CT CERVICAL WITHOUT CONTRAST INDICATION: SOB/dizzy/ fall EXAM DATE: 09/26/2024 02:55 PM COMPARISON: None TECHNIQUE: Multiple axial CT images of the cervical spine were obtained using bone algorithm. Axial and coronal reformatting was done. Bone and soft tissue windows were reviewed. Radiation Dose Information: CT Dose: CTDI volume is not available mGy. Dose-length product is not available mGy*cm Findings: There is no evidence of an acute fracture or spondylolisthesis. The vertebral body heights are well-maintained. The craniocervical junction and dens are intact. No evidence of degenerative disc disease. No neuroforaminal narrowing. No spinal canal stenosis. There is a normal cervical lordosis. The thyroid gland is unremarkable. The lung apices demonstrate no acute abnormality. The paraspinal and neck soft tissues appear within normal limits. C2-3: Normal C3-4: Normal C4-5: Normal C5-6: Normal C6-7: Normal C7-T1: Normal Impression: 1. No evidence of an acute fracture. ATED BY: CHERYL PABON DO DICTATED DATE/TIME: 09/26/241534 SIGNED BY: CHERYL PABON DO SIGNED DATE/TIME: 09/26/241534 CC: [address] [address] Ph: [phone] DIAGNOSTIC IMAGING Diagnostic Imaging Report : [id number] Signed PATIENT: MARY GRACE CAMEJO ACCT: [id number] UNIT: [id number] : 1960 LOC: ER ROOM / BED: / AGE / SEX: 64 / M ADM STATUS: REG ER SERVICE 13 ORDERING PHYSICIAN: KALYANI PRECIADO DO PROCEDURE(s): CXRP - CHEST PORTABLE REASON: SOB/dizzy/ fall ORDER NUMBER(s): [id number], ACCESSION NUMBER(s): [id number] EXAM: XY CHEST PORTABLE Indication:SOB/dizzy/ fall Technique: Single frontal view of the chest was obtained Comparison: XY CHEST XRAY 1 VIEW on DOS: 08/03/24, XY CHEST PORTABLE on DOS: 07/29/24, XY CHEST PORTABLE on DOS: 06/25/24, CXRP on DOS: 11/04/22, CHEST PORTABLE on DOS: 11/04/22 FINDINGS: Lines and Tubes: None Lungs: No focal consolidation. Pleura: No effusion. No pneumothorax. Cardiomediastinal contours: Unremarkable, Atherosclerotic vascular calcifications of the thoracic aorta are noted. Bones: No acute osseous abnormality. IMPRESSION: No acute cardiopulmonary disease. ATED BY: BETTE ESCAMILLA MD DICTATED DATE/TIME: 09/26/241539 SIGNED BY: BETTE ESCAMILLA MD SIGNED DATE/TIME: 09/26/241539 CC: [address] [address] Ph: [phone] DIAGNOSTIC IMAGING Diagnostic Imaging Report : [id number] Signed PATIENT: MARY GRACE CAMEJO ACCT: [id number] UNIT: [id number] : 1960 LOC: ER ROOM / BED: / AGE / SEX: 64 / M ADM STATUS: REG ER SERVICE 1414 ORDERING PHYSICIAN: KALYANI PRECIADO DO PROCEDURE(s): HWOCT - HEAD WITHOUT CONTRAST REASON: SOB/dizzy/ fall ORDER NUMBER(s): [id number], ACCESSION NUMBER(s): [id number] EXAM: CT HEAD WITHOUT CONTRAST HISTORY: SOB/dizzy/ fall COMPARISON: CT HEAD WITHOUT CONTRAST on DOS: 08/03/24 TECHNIQUE: Axial images were obtained and reformatted in coronal and sagittal planes. All CT scans at this medical facility are performed using dose modulation techniques as appropriate to a performed exam including the following: Automated exposure control was utilized; adjustment of the MA and/or KV according to patient size; and use of iterative reconstruction technique. CT Dose: CTDI volume is 71.03 mGy. Dose-length product is 1623.08 mGy*cm FINDINGS: There is no evidence of acute intracranial hemorrhage, mass, mass effect midline shift. There is no hydrocephalus or extra-axial fluid collection. Rivera-white matter differentiation is maintained. The visualized paranasal sinuses and mastoid air cells are clear. The calvarium is intact. IMPRESSION: 1. No acute intracranial process. HS:Y ATED BY: SIMEON MENDEZ MD DICTATED DATE/TIME: 09/26/24 1527 SIGNED BY: SIMEON MENDEZ MD SIGNED DATE/TIME: 09/26/24 1527 CC: [place] [address] Ph: [phone] DIAGNOSTIC IMAGING Diagnostic Imaging Report : [id number] Signed PATIENT: MARY GRACE CAMEJO ACCT: [id number] UNIT: [id number] : 1960 LOC: ER ROOM / BED: / AGE / SEX: 64 / M ADM STATUS: REG ER SERVICE 1444 ORDERING PHYSICIAN: KALYANI PRECIADO DO PROCEDURE(s): ABPL - CT AB PEL WO CON-NO ORAL OR IV REASON: hematemesis, sob, weak ORDER NUMBER(s): [id number], ACCESSION NUMBER(s): [id number] CT ABDOMEN AND PELVIS WITHOUT CONTRAST CLINICAL HISTORY: hematemesis, sob, weak TECHNIQUE: Multidetector CT of the abdomen was performed from lung bases to pubic symphysis. Imaging was performed without IV contrast. Axial, coronal and sagittal multiplanar reformats were obtained from the axial data set by the technologist. Radiation optimization: All CT scans at this facility use at least one of these dose optimization techniques: automated exposure control mA and/or kV adjustment per patient size (includes targeted exams where dose is matched to clinical indication) or iterative reconstruction. Radiation Dose Information: CT Dose: CTDI volume is [CTDIvol] mGy. Dose-length product is [DLP] mGy*cm Comparison: 07/30/2024 FINDINGS: Evaluation of the abdominal viscera is limited without intravenous contrast. The liver again demonstrates cirrhotic morphology with nodular surface contour. There is no gross evidence of a hepatic lesion. There is small amount of perihepatic and perisplenic ascites. There is a stable prominent size spleen. There are small calcified gallstones within the gallbladder. There are medullary calcifications in both kidneys. There is no evidence of nephrolithiasis or hydronephrosis. The pancreas, and adrenal glands appear within normal limits. there is no free air. There is no gross lymphadenopathy. The stomach grossly appears unremarkable. The small and large bowel loops demonstrate normal caliber. There are colonic diverticula without evidence of acute diverticulitis. The abdominal aorta and IVC appear within normal limits. The bladder appears unremarkable. The pelvic organs grossly appears unremarkable. There is no gross evidence of a pelvic mass or significant free fluid collection. There is minimal dependent atelectasis in the lung bases. There is no acute osseous abnormality. IMPRESSION: 1. The liver again demonstrates cirrhotic morphology. There is no gross evidence of a hepatic lesion. There is small amount of perihepatic and perisplenic ascites. 2. Stable splenomegaly. 3. Cholelithiasis. 4. Colonic diverticulosis.. HS:Y ATED BY: SIMEON MENDEZ MD DICTATED DATE/TIME: 09/26/241534 SIGNED BY: SIMEON MENDEZ MD SIGNED DATE/TIME: 09/26/245 CC: Time of 1ST Reevaluation: 14:46 (while pt was waiting for bed in ED, pt started vomiting blood) Reevaluation 1ST: Unchanged Time of 2ND Reevaluation: 20:31 (The case was discussed with the GI team (HPI, physical exam, labs and diagnostic tests that were available at the time of disposition, ED course, treatment plan) on the phone. They agreed to follow in consult. No further recommendations. Dr. Preciado.) Reevaluation 2ND: Improved Patient Education/Counseling: Diagnosis, Treatment Family Education/Counseling: No Family Present Comments Patient presented with the above HPI.--dyspnea----workup was initiated. patient was found with the above mentioned diagnosis. Patient was given: Lasix, Rocephin, pain medication, fluids, blood transfusion. Protonix, octreotide, Zofran. Patient ED course and VS have been stabilized. Patient has been reassessed in the ED and remained in a stable condition. Pertinent incidental findings were discussed with the patient and/or family. Patient/family voices understanding and is agreeable with plan. Patient has been observed in the ED adequate length of time to insure improvement/stability. patient was admitted to the medicine team for further evaluation and treatment of their presentation. GI was consulted. All the reports of any imaging studies that were ordered by myself were reviewed by myself. Patient was found with a symptomatic anemia causing his shortness of breath and weakness. He patient later was discovered to have hematemesis and black stool. This happened to him in the past he said. He has history of liver cirrhosis. GI bleed protocol initiated. Departure 1 Departure Time of Disposition: 15:03 Impression: Primary Impression: GI bleed Additional Impressions: Hematemesis Symptomatic anemia Hyperammonemia Liver cirrhosis Disposition: ADMITTED INPATIENT Admit to: Tele Condition: Guarded Discharged With: Self Critical Care Note Critical Care Time?: Yes (1 hr-critical care time only) Heart Score Heart Score: Heart Score Response (Comments) Value History Slightly Suspicious 0 EKG Normal 0 Age 45-64 1 Risk Factors 1 or 2 risk factors 1 Troponin Normal limit 0 Total 2 I personally scribed for KALYANI PRECIADO DO ([email or web address]) on 09/26/24 at 14:11. Electronically submitted by Genevieve Guerrero ([facility] I personally scribed for KALYANI PRECIADO DO ([facility]) on 09/26/24 at 14:41. Elect ronically submitted by Genevieve Guerrero ([facility] I personally scribed for KALYANI PRECIADO DO ([facility]) on 09/26/24 at 14:47. E lectronically submitted by Genevieve Guerrero ([email or web address]). I personally scribed for KALYANI PRECIADO DO ([facility]) on 09/26/24 at 16:06. Electronically submitted by Genevieve Guerrero ([facility] KALYANI PRECIADO DO Sep 26, 2024 14:11
[2024-09-26] MEDS: OCTREOTIDE ACETATE 100 MCG in SODIUM CHL 0.9% 50 ML IV ONE (14:45)
[2024-09-26] MEDS: SODIUM CHLORIDE 0.9% 1,000 ML IV ONE (14:45)
[2024-09-26 15:08] LABS: Basophils # (auto) 0 10 ^3/uL (0-0.2); Basophils % (auto) 0.4 % (0.0-2.0); Eosinophils # (auto) 0 10 ^3/uL (0-0.8); Eosinophils % (auto) 0.9 % (0.0-7.0); Lymphocytes # (auto) 0.7 10 ^3/uL (0.4-5.4); Monocytes # (auto) 0.4 10 ^3/uL (0-1.3); Neutrophils # (auto) 2.8 10 ^3/uL (1.6-8.6)
[2024-09-26 15:12] LABS: Hematocrit 18.4 % (41.0-53.0); Lymphocytes % (auto) 18.3 % (10.0-50.0); Mean Corpuscular Hgb Conc. 31.1 g/dL (32.0-36.0); Monocytes % (auto) 10.2 % (0.0-12.0); Neutrophils % (auto) 70.2 % (37.0-80.0); Nucleated Red Blood Cells % 0.1 %; Platelet Count (auto) 126 10^3/uL (140-450); Red Blood Cells 2.39 10^6/uL (4.5-5.90); Red Cell Distribution Width 19.2 % (11.8-14.3); White Blood Cell 3.9 10^3/uL (4.4-10.8)
[2024-09-26 15:15] LABS: Hemoglobin 5.7 g/dL (13.5-17.5)
[2024-09-26] MEDS: PANTOPRAZOLE 40 MG/10 ML VIAL INJ IV ONE (15:16)
[2024-09-26] MEDS: ONDANSETRON HCL 4 MG/2 ML VIAL IV ONE (15:16)
[2024-09-26 15:22] LABS: INR 1.29 (0.9-1.15); Partial Thromboplastin Time 26.9 SEC (24.5-34.5); Prothrombin Time 13.4 sec (9.3-11.8)
--- NOTE | 2024-09-26 15:28 | DVH ---
EXAM: CT HEAD WITHOUT CONTRAST HISTORY: SOB/dizzy/ fall COMPARISON: CT HEAD WITHOUT CONTRAST on DOS: 08/03/24 TECHNIQUE: Axial images were obtained and reformatted in coronal and sagittal planes. All CT scans at this medical facility are performed using dose modulation techniques as appropriate t o a performed exam including the following: Automated exposure control was utilized; adjustment of th e MA and/or KV according to patient size; and use of iterative reconstruction technique. CT Dose: CTDI volume is 71.03 mGy. Dose-length product is 1623.08 mGy*cm FINDINGS: There is no evidence of acute intracranial hemorrhage, mass, mass effect midline shift. There is no h ydrocephalus or extra-axial fluid collection. Rivera-white matter differentiation is maintained. The visualized paranasal sinuses and mastoid air cells are clear. The calvarium is intact. IMPRESSION: 1. No acute intracranial process. HS:Y
[2024-09-26 15:32] LABS: Alanine Aminotransferase 21 U/L (7-40); Albumin 2.4 g/dL (3.2-4.8); Alkaline Phosphatase 115 U/L (46-116); Anion Gap 3 (5-15); Aspartate Aminotransferase 48 U/L (13-40); BUN/Creatinine Ratio 25.6 (10.0-20.0); Bilirubin, Total 0.5 mg/dL (0.2-1.0); Blood Alcohol 3.5 mg/dL (<10); Blood Urea Nitrogen 21 mg/dL (9-23); Calcium 7.6 mg/dL (8.7-10.4); Carbon Dioxide 28 mmol/L (20-31); Chloride 108 mmol/L (98-107); Glucose 102 mg/dL (74-106); Potassium 4.6 mmol/L (3.5-5.1); Sodium 139 mmol/L (136-145); Total Protein 5.2 g/dL (5.7-8.2)
--- NOTE | 2024-09-26 15:36 | DVH ---
EXAM: CT CERVICAL WITHOUT CONTRAST INDICATION: SOB/dizzy/ fall EXAM DATE: 09/26/2024 02:55 PM COMPARISON: None TECHNIQUE: Multiple axial CT images of the cervical spine were obtained using bone algorithm. Axial a nd coronal reformatting was done. Bone and soft tissue windows were reviewed. Radiation Dose Information: CT Dose: CTDI volume is not available mGy. Dose-length product is not available mGy*cm Findings: There is no evidence of an acute fracture or spondylolisthesis. The vertebral body heights are well-m aintained. The craniocervical junction and dens are intact. No evidence of degenerative disc disease. No neuroforaminal narrowing. No spinal canal stenosis. There is a normal cervical lordosis. The thyroid gland is unremarkable. The lung apices demonstrate no acute abnormality. The paraspinal a nd neck soft tissues appear within normal limits. C2-3: Normal C3-4: Normal C4-5: Normal C5-6: Normal C6-7: Normal C7-T1: Normal Impression: 1. No evidence of an acute fracture.
--- NOTE | 2024-09-26 15:37 | DVH ---
CT ABDOMEN AND PELVIS WITHOUT CONTRAST CLINICAL HISTORY: hematemesis, sob, weak TECHNIQUE: Multidetector CT of the abdomen was performed from lung bases to pubic symphysis. Imaging was performed without IV contrast. Axial, coronal and sagittal multiplanar reformats were obtained fr om the axial data set by the technologist. Radiation optimization: All CT scans at this facility use at least one of these dose optimization elzbieta hniques: automated exposure control mA and/or kV adjustment per patient size (includes targeted exam s where dose is matched to clinical indication) or iterative reconstruction. Radiation Dose Information: CT Dose: CTDI volume is [CTDIvol] mGy. Dose-length product is [DLP] mGy*cm Comparison: 07/30/2024 FINDINGS: Evaluation of the abdominal viscera is limited without intravenous contrast. The liver again demonstrates cirrhotic morphology with nodular surface contour. There is no gross ramon dence of a hepatic lesion. There is small amount of perihepatic and perisplenic ascites. There is a stable prominent size spleen. There are small calcified gallstones within the gallbladder. There are medullary calcifications in both kidneys. There is no evidence of nephrolithiasis or hydro nephrosis. The pancreas, and adrenal glands appear within normal limits. there is no free air. There is no rashida ss lymphadenopathy. The stomach grossly appears unremarkable. The small and large bowel loops demonstrate normal caliber. There are colonic diverticula without evidence of acute diverticulitis. The abdominal aorta and IVC appear within normal limits. The bladder appears unremarkable. The pelvic organs grossly appears unremarkable. There is no gross evidence of a pelvic mass or significant free fluid collection. There is minimal dependent atelectasis in the lung bases. There is no acute osseous abnormality. IMPRESSION: 1. The liver again demonstrates cirrhotic morphology. There is no gross evidence of a hepatic lesion. There is small amount of perihepatic and perisplenic ascites. 2. Stable splenomegaly. 3. Cholelithiasis. 4. Colonic diverticulosis.. HS:Y
[2024-09-26] MEDS: OCTREOTIDE ACETATE 500 MCG in SODIUM CHL 0.9% 99 ML IV SCH (15:39)
--- NOTE | 2024-09-26 15:42 | DVH ---
EXAM: XY CHEST PORTABLE Indication:SOB/dizzy/ fall Technique: Single frontal view of the chest was obtained Comparison: XY CHEST XRAY 1 VIEW on DOS: 08/03/24, XY CHEST PORTABLE on DOS: 07/29/24, XY CHEST PORTABLE on DOS: 06/25/24, CXRP on DOS: 11/04/22, CHEST PORTABLE on DOS: 11/04/22 FINDINGS: Lines and Tubes: None Lungs: No focal consolidation. Pleura: No effusion. No pneumothorax. Cardiomediastinal contours: Unremarkable, Atherosclerotic vascular calcifications of the thoracic ao rta are noted. Bones: No acute osseous abnormality. IMPRESSION: No acute cardiopulmonary disease.
[2024-09-26] MEDS: LACTULOSE 20Gm/30ML SOLN PO ONE (16:48)
[2024-09-26] MEDS: HYDROcodone-ACET 5/325MG TAB PO ONE (17:16)
[2024-09-26] MEDS: cefTRIAXone 1GM/50ML D5W 50 ML IV ONE (19:49)
[2024-09-26] MEDS: fentaNYL CITRATE 100 MCG/2 ML VL IV ONE (19:58)
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
[2024-09-26] MEDS ORDERED: NITROGLYCERIN 0.4 MG SL TAB SL PRN (22:00)
[2024-09-26] MEDS: SODIUM CHLOR 0.9% PF (SALINE LOCK) 10ML VIAL/SYR IV SCH (22:00)
[2024-09-26] MEDS ORDERED: ACETAMINOPHEN 325 MG TAB PO PRN (22:00)
[2024-09-26] MEDS ORDERED: MORPHINE SULFATE INJ 2 MG/ml SYRG IV PRN (22:00)
[2024-09-26] MEDS: SODIUM CHLORIDE 0.9% 1,000 ML IV SCH (22:41)
[2024-09-27] VITALS (9 sets, daily range): BP systolic 106–128; BP diastolic 49–70; PULSE 59–92; RESP 17–21; TEMP 97.5–98.4; O2SAT 95–99
[2024-09-27 00:28] LABS: Basophils # (auto) 0 10 ^3/uL (0-0.2); Eosinophils # (auto) 0 10 ^3/uL (0-0.8); Hemoglobin 7.6 g/dL (13.5-17.5); Lymphocytes # (auto) 1.1 10 ^3/uL (0.4-5.4); Monocytes # (auto) 0.4 10 ^3/uL (0-1.3); Monocytes % (auto) 9.4 % (0.0-12.0); Neutrophils # (auto) 2.7 10 ^3/uL (1.6-8.6)
[2024-09-27 00:30] LABS: Basophils % (auto) 1.1 % (0.0-2.0); Eosinophils % (auto) 0.9 % (0.0-7.0); Hematocrit 23.8 % (41.0-53.0); Lymphocytes % (auto) 25.6 % (10.0-50.0); Mean Corpuscular Hemoglobin 25.5 pg (28.0-32.0); Mean Corpuscular Hgb Conc. 31.8 g/dL (32.0-36.0); Mean Corpuscular Volume 80.1 fL (80.0-100.0); Platelet Count (auto) 118 10^3/uL (140-450); Red Blood Cells 2.98 10^6/uL (4.5-5.90); Red Cell Distribution Width 19.4 % (11.8-14.3); White Blood Cell 4.3 10^3/uL (4.4-10.8)
[2024-09-27] MEDS ORDERED: cefTRIAXone 1GM/50ML D5W 50 ML IV ONE (00:30)
[2024-09-27] MEDS: MORPHINE SULFATE INJ 2 MG/ml SYRG IV ONE ×2 (00:49→15:54)
[2024-09-27] MEDS: HYDROcodone-ACET 5/325MG TAB PO PRN (04:42)
[2024-09-27 06:47] LABS: Basophils # (auto) 0 10 ^3/uL (0-0.2); Basophils % (auto) 0.3 % (0.0-2.0); Eosinophils # (auto) 0.1 10 ^3/uL (0-0.8); Eosinophils % (auto) 2.2 % (0.0-7.0); Hematocrit 21.7 % (41.0-53.0); Hemoglobin 7.1 g/dL (13.5-17.5); Lymphocytes # (auto) 0.7 10 ^3/uL (0.4-5.4); Lymphocytes % (auto) 15.9 % (10.0-50.0); Mean Corpuscular Hgb Conc. 32.8 g/dL (32.0-36.0); Mean Corpuscular Volume 79.3 fL (80.0-100.0); Monocytes # (auto) 0.3 10 ^3/uL (0-1.3); Neutrophils % (auto) 73.6 % (37.0-80.0); Platelet Count (auto) 110 10^3/uL (140-450); Red Blood Cells 2.74 10^6/uL (4.5-5.90); Red Cell Distribution Width 18.8 % (11.8-14.3); White Blood Cell 4.1 10^3/uL (4.4-10.8)
[2024-09-27 06:52] LABS: Alanine Aminotransferase 18 U/L (7-40); Albumin 2.5 g/dL (3.2-4.8); Alkaline Phosphatase 85 U/L (46-116); Anion Gap 6 (5-15); Aspartate Aminotransferase 41 U/L (13-40); BUN/Creatinine Ratio 25.3 (10.0-20.0); Blood Urea Nitrogen 23 mg/dL (9-23); Calcium 7.7 mg/dL (8.7-10.4); Carbon Dioxide 23 mmol/L (20-31); Chloride 110 mmol/L (98-107); Glucose 118 mg/dL (74-106); Potassium 4.8 mmol/L (3.5-5.1); Sodium 139 mmol/L (136-145)
[2024-09-27 06:53] LABS: Bilirubin, Total 1.1 mg/dL (0.2-1.0); Total Protein 5.1 g/dL (5.7-8.2)
[2024-09-27] MEDS: OCTREOTIDE ACETATE 500 MCG/ML VL ONE (07:00)
[2024-09-27] MEDS: PANTOPRAZOLE 40 MG/10 ML VIAL INJ IV SCH (09:39)
[2024-09-27] MEDS: LACTULOSE 20Gm/30ML SOLN PO SCH (10:00)
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
[2024-09-27] MEDS: cefTRIAXone 1GM/50ML D5W 50 ML IV SCH (20:18)
[2024-09-27] MEDS: SUCRALFATE 1 GM/10 ML ORAL SUSP PO SCH (21:42)
[2024-09-27] MEDS: traMADol HCL 50 MG TAB PO PRN (23:41)
[2024-09-27] MEDS: HYDROcodone-ACET 5/325MG TAB PO ONE (23:43)
[2024-09-28] VITALS (8 sets, daily range): BP systolic 100–138; BP diastolic 66–77; PULSE 56–73; RESP 16–20; TEMP 97.7–98.3; O2SAT 95–99
[2024-09-28 07:47] LABS: Chloride 110 mmol/L (98-107); Potassium 4.4 mmol/L (3.5-5.1); Sodium 138 mmol/L (136-145)
[2024-09-28 07:48] LABS: Anion Gap 6 (5-15); Calcium 7.8 mg/dL (8.7-10.4); Carbon Dioxide 22 mmol/L (20-31)
[2024-09-28 07:50] LABS: Basophils # (auto) 0 10 ^3/uL (0-0.2); Eosinophils # (auto) 0.1 10 ^3/uL (0-0.8); Hematocrit 21.2 % (41.0-53.0); Lymphocytes # (auto) 0.6 10 ^3/uL (0.4-5.4); Lymphocytes % (auto) 28.9 % (10.0-50.0); Mean Corpuscular Hemoglobin 25.4 pg (28.0-32.0); Mean Corpuscular Hgb Conc. 31.4 g/dL (32.0-36.0); Mean Corpuscular Volume 80.9 fL (80.0-100.0); Monocytes # (auto) 0.2 10 ^3/uL (0-1.3); Monocytes % (auto) 10.2 % (0.0-12.0); Neutrophils # (auto) 1.3 10 ^3/uL (1.6-8.6); Neutrophils % (auto) 56.9 % (37.0-80.0); Nucleated Red Blood Cells % 0.5 %; Platelet Count (auto) 104 10^3/uL (140-450); Red Blood Cells 2.62 10^6/uL (4.5-5.90); Red Cell Distribution Width 19.7 % (11.8-14.3); White Blood Cell 2.2 10^3/uL (4.4-10.8)
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
[2024-09-28 07:52] LABS: Hemoglobin 6.7 g/dL (13.5-17.5)
[2024-09-28 07:53] LABS: BUN/Creatinine Ratio 19.3 (10.0-20.0); Blood Urea Nitrogen 17 mg/dL (9-23); Glucose 108 mg/dL (74-106)
--- NOTE | 2024-09-28 08:50 | DVHPNRES ---
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 Per patient, overnight at the hospital he had multiple episodes of hematemesis and melena. Patient's hemoglobin was noted to be 5.7 and he was subsequently transfused with 2 PRBCs. Past surgical history: Denies Home medications: Colchicine, ferrous sulfate, furosemide, gabapentin, ibuprofen, indomethacin, naproxen, Protonix, thiamine Past Hospitalization: In July 2024 at the [facility] due to upper GI bleeding Social & Personal history: Patient is homeless, notes that he lives in his uncles barn. Patient smokes tobacco occasionally and marijuana often. Continues to abuse alcohol, last drink was 2 days ago when he had 2 cans of 32 oz of beer. Allergies: Denies Patient seen and examined at bedside. Patient is alert and oriented to time, place person and responding to all questions. Patient continues to complain of abdominal pain, however, no tenderness to palpation noted in all 4 quadrants of the abdomen. Hepatomegaly noted, some shifting dullness also noted. Objective vital signs Vital Sign Date Time Temp Pulse Resp B/P (MAP) Pulse Ox O2 Delivery O2 Flow Rate FiO2 09/28/24 07:57 Room Air* 0 21 09/28/24 04:54 98.0 73 18 129/74 (92) 96 98.0 Total Intake and Output 09/27/24 09/27/24 09/28/24 15:00 23:00 07:00 Intake Total 50 ml 0 ml Output Total 1000 ml 800 ml Balance -950 ml -800 ml medications Current Medications Medications Dose Ordered Sig/Jesika Route Start Time Stop Time Status Last Admin Dose Admin Sodium Chloride 10 ml Q8HR IV 09/26/24 22:00 09/28/24 05:17 10 ML Sodium Chloride 1,000 ml @ 75 mls/hr [id number] IV 09/26/24 22:00 09/27/24 23:35 75 MLS/HR Ondansetron HCl 4 mg Q4HP PRN IV 09/26/24 22:00 Pantoprazole Sodium 40 mg BID IV 09/27/24 10:00 09/27/24 21:43 40 MG Lactulose 30 ml BID PO 09/27/24 10:00 09/27/24 21:42 30 ML Ceftriaxone Sodium 50 ml @ 100 mls/hr DAILY@2000 IV 09/27/24 20:00 09/27/24 20:18 100 MLS/HR Sucralfate 1 gm TID@0600,1130,2200 PO 09/27/24 22:00 09/28/24 05:16 1 GM Tramadol HCl 50 mg Q4HP PRN PO 09/27/24 21:15 09/28/24 05:17 50 MG Examination General Appearance: Cooperative. Well developed. Well nourished. NAD Head Exam: Normal inspection. Pale conjunctiva noted Neck Exam: Normal inspection. Non-tender. Normal alignment Pulmonary/Respiratory: Chest non-tender. Clear bilateral breath sounds, no crackles, no wheezing. Cardiovascular/Chest: Regular rate and rhythm. No murmurs. No JVD. Peripheral Pulses: 2+ Radial (R). 2+ Radial (L). 2+ Pedal (R). 2+ Pedal (L) Abdominal Exam: Normal bowel sounds. Soft. normal abdomen, no visible veins, Nontender. Shifting Dullness noted. hepatospenomegaly. No masses Ankle Exam: Negative ankle edema Lower extremities: Negative lower extremity edema. Rene on right forearm and right thigh, approximately 9% total body surface area Neuro/Mental Status: A&O x4. Coherent. Thoughts/Psych: Normal thought pattern. Appropriate mood and affect. Good judgement and insight Skin Exam: Normal inspection. Normal color. Warm. Dry laboratory and microbiology Laboratory Tests 09/28/24 06:40 Test 09/28/24 06:40 Range/Units Serum Glucose 108 H 74-106 mg/dL Labs and/or images reviewed: Labs reviewed by me, Image(s) reviewed by me Problem List/Assessment/Plan Problem List/Assessment/Plan Alcoholic liver cirrhosis Upper GI bleeding due to Esophageal varices, s/p EGD on 08/04/2024 Chronic anemia, s/p 2 RBCs Possible spontaneous bacterial peritonitis Hyperammonemia without metabolic encephalopathy, serum ammonia 57 - CT abdomen pelvis: The liver again demonstrates cirrhotic morphology. There is no gross evidence of hepatic lesion. There is a small amount of perihepatic and perisplenic ascites. Stable splenomegaly. Cholelithiasis. Colonic diverticulosis. - IV NS at 75 cc/hour - IV Protonix 40 mg b.i.d. , Carafate 1 g p.o. t.i.d. - octreotide drip at 50 micrograms/hour per protocol - IV ceftriaxone - lactulose 30 mL p.o. b.i.d. - conservative management recommended by GI at this time - placed on a clear liquid diet - Hb dropped 6.7 this a.m. on 09/28/2024 --> 1 PRBC transfusion - scheduled for EGD on 09/29/2024 History of hepatitis-C - outpatient follow up in GI clinic for hepatitis-C treatment plan Alcohol use disorder Homelessness - counseled patient in detail about the injurious effects of continuous use of alcohol on his liver and overall health. - oncology social work consulted S/p mechanical fall - cervical spine CT: No evidence of acute fracture - CXR: No acute cardiopulmonary disease - head-CT: No acute intracranial process Cholelithiasis Diverticulosis without diverticulitis - we will continue to monitor PUD prophylaxis: protonix 40mg b.i.d. DVT prophylaxis: Currently holding Goals of care: Full code, discussed for >16 minutes on 09/27/24 Plan discussed with patient Plan discussed with Dr. Borrero Plan discussed with: Patient, Other (RN) My Orders My Orders Orders - ARIE LAINEZ RESIDENT Procedure Category Date Status Time * Wound Consult CONS 09/27/24 Transmitted Sucralfate Susp PHA 09/27/24 In Process (Carafate Susp) 22:00 Cleanse Wound With KATHI 09/27/24 In Process Wound Clean 17:22 Complete Blood Count LAB 09/28/24 In Process 04:00 Rbc Morphology LAB 09/28/24 In Process 06:40 Obtain Consent For: ORDERS 09/28/24 Transmitted 08:10 Packedcell-Noactive BBK 09/28/24 Logged Bleeding 08:10 Type And Screen BBK 09/28/24 Logged 08:10 Dietary Evaluation Review Comments: 1) Advance pt diet when medically feasible 2) Consider MARY JANE 1 pkt BID for wounds 3) Continue current plan of care Expected Outcomes/Goals: 1) Pt diet to advance 2) F/U in 2-3 days CC Plasma Assessment Blood Product Administration S: 2039 Date of Service: Sep 28, 2024 Billing Provider: BRENDA BORRERO MD Common Visit Codes: [id number] INP/OBS CARE(HIGH) Coding Comment Comment I saw and evaluated the patient. I reviewed the residents note and agree with findings and plan as documented in the residents note. ARIE LAINEZ RESIDENT Sep 28, 2024 08:50 BRENDA BORRERO MD Sep 28, 2024 20:50
[2024-09-28 09:07] LABS: Ovalocytes FEW; Platelet Estimate Decreased
[2024-09-28 10:01] LABS: INR 1.23 (0.9-1.15); Prothrombin Time 12.8 sec (9.3-11.8)
[2024-09-28] MEDS: MORPHINE SULFATE INJ 2 MG/ml SYRG IV PRN (13:20)
[2024-09-28] MEDS ORDERED: ACETAMINOPHEN 325 MG TAB PO SCH (14:00)
[2024-09-28] MEDS ORDERED: VASELINE LIP THERAPY 10gm TOP PRN (18:15)
[2024-09-28 18:44] LABS: Basophils # (auto) 0 10 ^3/uL (0-0.2); Eosinophils # (auto) 0 10 ^3/uL (0-0.8); Lymphocytes # (auto) 0.8 10 ^3/uL (0.4-5.4); Mean Corpuscular Volume 79.2 fL (80.0-100.0); Monocytes # (auto) 0.3 10 ^3/uL (0-1.3); Neutrophils # (auto) 1.4 10 ^3/uL (1.6-8.6); White Blood Cell 2.5 10^3/uL (4.4-10.8)
[2024-09-28 18:46] LABS: Basophils % (auto) 0.6 % (0.0-2.0); Eosinophils % (auto) 1.7 % (0.0-7.0); Hemoglobin 7.2 g/dL (13.5-17.5); Lymphocytes % (auto) 33.4 % (10.0-50.0); Mean Corpuscular Hemoglobin 25.9 pg (28.0-32.0); Mean Corpuscular Hgb Conc. 32.7 g/dL (32.0-36.0); Monocytes % (auto) 10.2 % (0.0-12.0); Neutrophils % (auto) 54.1 % (37.0-80.0); Platelet Count (auto) 116 10^3/uL (140-450); Red Blood Cells 2.78 10^6/uL (4.5-5.90); Red Cell Distribution Width 19.3 % (11.8-14.3)
[2024-09-28 20:05] LABS: Free T3 1.62 pg/mL (2.3-4.2)
[2024-09-28 20:06] LABS: Free T4 (Free Thyroxine) 0.76 ng/dL (0.89-1.76)
[2024-09-28] MEDS: ONDANSETRON HCL 4 MG/2 ML VIAL IV PRN (21:07)
[2024-09-28] MEDS: ACETAMINOPHEN 325 MG TAB PO SCH (21:09)
[2024-09-28] MEDS: GABAPENTIN 300 MG CAP PO SCH (21:22)
[2024-09-29] VITALS (10 sets, daily range): BP systolic 125–139; BP diastolic 70–88; PULSE 56–69; RESP 13–20; TEMP 97.5–98.2; O2SAT 96–100
[2024-09-29] MEDS ORDERED: fentaNYL CITRATE 100 MCG/2 ML VL ONE (07:54)
[2024-09-29] MEDS ORDERED: ONDANSETRON HCL 4 MG/2 ML VIAL ONE (07:54)
[2024-09-29] MEDS ORDERED: PROPOFOL 10 MG/ML 20 ML IV ONE (07:54)
[2024-09-29] MEDS ORDERED: GLYCOPYRROLATE 0.2 MG/ML 1ML VIAL ONE (07:54)
[2024-09-29] MEDS ORDERED: LIDOCAINE 2% (LOCAL ANESTH.) PF 5ml SDV ONE (07:54)
[2024-09-29] MEDS ORDERED: MIDAZOLAM HCL 2MG/2ML 2ml VIAL (1mg/ml) ONE (07:54)
[2024-09-29 09:17] LABS: Basophils # (auto) 0 10 ^3/uL (0-0.2); Hemoglobin 7.5 g/dL (13.5-17.5); Lymphocytes # (auto) 0.7 10 ^3/uL (0.4-5.4); Monocytes # (auto) 0.2 10 ^3/uL (0-1.3); Neutrophils # (auto) 1.4 10 ^3/uL (1.6-8.6); White Blood Cell 2.4 10^3/uL (4.4-10.8)
[2024-09-29 09:19] LABS: Basophils % (auto) 0.7 % (0.0-2.0); Eosinophils # (auto) 0.1 10 ^3/uL (0-0.8); Eosinophils % (auto) 2.2 % (0.0-7.0); Hematocrit 23.7 % (41.0-53.0); Lymphocytes % (auto) 28.4 % (10.0-50.0); Mean Corpuscular Hemoglobin 25.7 pg (28.0-32.0); Mean Corpuscular Hgb Conc. 31.7 g/dL (32.0-36.0); Neutrophils % (auto) 58.7 % (37.0-80.0); Nucleated Red Blood Cells % 0.3 %; Platelet Count (auto) 118 10^3/uL (140-450); Red Blood Cells 2.92 10^6/uL (4.5-5.90); Red Cell Distribution Width 19.6 % (11.8-14.3)
[2024-09-29 09:36] LABS: Alanine Aminotransferase 23 U/L (7-40); Albumin 2.4 g/dL (3.2-4.8); Alkaline Phosphatase 81 U/L (46-116); Anion Gap 4 (5-15); Aspartate Aminotransferase 53 U/L (13-40); BUN/Creatinine Ratio 14.7 (10.0-20.0); Bilirubin, Total 0.5 mg/dL (0.2-1.0); Blood Urea Nitrogen 14 mg/dL (9-23); Calcium 7.7 mg/dL (8.7-10.4); Carbon Dioxide 24 mmol/L (20-31); Chloride 110 mmol/L (98-107); Glucose 109 mg/dL (74-106); Potassium 4.3 mmol/L (3.5-5.1); Sodium 138 mmol/L (136-145)
[2024-09-29 09:37] LABS: Total Protein 5.2 g/dL (5.7-8.2)
[2024-09-29] MEDS ORDERED: KETAMINE 50mg/ML 1ml syringe ONE (09:59)
--- NOTE | 2024-09-29 10:32 | DVHOP2 ---
Operative Report DATE OF OPERATION: 09/29/24 PROCEDURE: Upper Endoscopy with biopsy. PREOPERATIVE INDICATION: The patient is a 64 -year-old male undergoing endoscopy for upper GI bleed and anemia POSTOPERATIVE DIAGNOSES: 1. 3 cm sliding-type hiatal hernia with no significant erosive esophagitis and there was a previously placed resolution clip within the hiatal hernia sac but no active ulceration or bleeding 2. [id number] portal hypertension gastropathy from which biopsies were obtained 3. There were no esophageal varices and it was otherwise normal examination up to the 2nd and 3rd part of the duodenum with no fresh or old blood in the upper GI tract PROCEDURE PERFORMED BY: Naeem Preciado GI NURSE: Levi SCOPE: Olympus videoendoscope. ASA CLASS: 3. PREOPERATIVE MEDICATIONS: Dr. Bill Bliss PROCEDURE IN DETAIL: After obtaining an informed consent, the patient was placed on left lateral decubitus position. The patient was then sedated with the above medications. A bite block was placed between his teeth. The endoscope was then passed through the oropharynx, into the esophagus, and through the stomach and pylorus up to the second and third part of the duodenum. The endoscope was then withdrawn. The 2nd and 3rd part of the duodenal and the duodenal bulb were normal. There was no ulceration. No fresh or old blood in the upper GI tract. The pre-pyloric area and antrum showed minimal gastritis. On retroflexion and straight on view the patient had moderate gastropathy involving the cardia fundus and the body of the stomach. There were no gastric varices and no esophageal varices. Gastric biopsies were obtained. Patient had a 3 cm sliding-type hiatal hernia with a previously placed resolution clip within the hiatal hernia sac There was no ulceration or active bleeding and no significant esophagitis The patient tolerated the procedure well without difficulty. COMPLICATIONS : None SPECIMENS: Gastric biopsies DISPOSITION: Transfer back to the floor Stable PLAN: 1. Await for biopsy result 2. Will place pt on Protonix 40 mg p.o. twice a day 3. Carafate 1 g p.o. twice a day 4. Resume soft mechanical diet advance as tolerated 5. Continue abstinence and outpatient elective colonoscopy once the patient is medically stabilized and recovered from his rene NAEEM PRECIADO MD Sep 29, 2024 10:32
[2024-09-29 13:31] LABS: Urine Bacteria None Seen /hpf (None Seen)
[2024-09-29 13:51] LABS: Urine Blood Negative /uL (Negative); Urine Clarity Clear (Clear); Urine Color Light-Yellow (Yellow); Urine Protein, UAD Negative (Negative); Urine Urobilinogen Normal (Negative); Urine WBC <1 /hpf (0 - 3)
--- NOTE | 2024-09-29 17:01 | DVHPNRES ---
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 Per patient, overnight at the hospital he had multiple episodes of hematemesis and melena. Patient's hemoglobin was noted to be 5.7 and he was subsequently transfused with 2 PRBCs. Past surgical history: Denies Home medications: Colchicine, ferrous sulfate, furosemide, gabapentin, ibuprofen, indomethacin, naproxen, Protonix, thiamine Past Hospitalization: In July 2024 at the [facility] due to upper GI bleeding Social & Personal history: Patient is homeless, notes that he lives in his uncles barn. Patient smokes tobacco occasionally and marijuana often. Continues to abuse alcohol, last drink was 2 days ago when he had 2 cans of 32 oz of beer. Allergies: Denies Patient seen and examined at bedside. Patient is alert and oriented to time, place person and responding to all questions. Patient continues to complain of abdominal pain, however, no tenderness to palpation noted in all 4 quadrants of the abdomen. Hepatomegaly noted, some shifting dullness. Patient completed EGD today. Objective vital signs Vital Sign Date Time Temp Pulse Resp B/P (MAP) Pulse Ox O2 Delivery O2 Flow Rate FiO2 09/29/24 16:41 62 16 125/74 09/29/24 14:20 98.6 09/29/24 13:00 99 09/29/24 10:03 Mask 6.0 09/29/24 10:03 100 Total Intake and Output 09/28/24 09/28/24 09/29/24 15:00 23:00 07:00 Intake Total 325 ml 750 ml Output Total 460 ml 150 ml Balance -135 ml 600 ml medications Current Medications Medications Dose Ordered Sig/Jesika Route Start Time Stop Time Status Last Admin Dose Admin Sodium Chloride 10 ml Q8HR IV 09/26/24 22:00 09/29/24 14:22 10 ML Sodium Chloride 1,000 ml @ 75 mls/hr [id number] IV 09/26/24 22:00 09/29/24 03:20 75 MLS/HR Ondansetron HCl 4 mg Q4HP PRN IV 09/26/24 22:00 09/29/24 03:38 4 MG Pantoprazole Sodium 40 mg BID IV 09/27/24 10:00 09/29/24 11:52 40 MG Lactulose 30 ml BID PO 09/27/24 10:00 09/29/24 11:52 30 ML Ceftriaxone Sodium 50 ml @ 100 mls/hr DAILY@1999 IV 09/27/24 20:00 09/28/24 21:04 100 MLS/HR Sucralfate 1 gm TID@0600,1130,2200 PO 09/27/24 22:00 09/29/24 12:30 1 GM Morphine Sulfate 2 mg Q3HPRN PRN IV 09/28/24 12:30 09/29/24 16:41 2 MG Emollient Ointment 1 applic PRN PRN TOP 09/28/24 18:15 Acetaminophen 650 mg Q8HR PO 09/28/24 22:00 09/29/24 14:20 650 MG Gabapentin 300 mg HS PO 09/28/24 22:00 09/28/24 21:22 300 MG Levothyroxine Sodium 25 mcg QAM@0600 PO 09/30/24 06:00 Examination General Appearance: Cooperative. Well developed. Well nourished. NAD Head Exam: Normal inspection. Pale conjunctiva noted Neck Exam: Normal inspection. Non-tender. Normal alignment Pulmonary/Respiratory: Chest non-tender. Clear bilateral breath sounds, no crackles, no wheezing. Cardiovascular/Chest: Regular rate and rhythm. No murmurs. No JVD. Peripheral Pulses: 2+ Radial (R). 2+ Radial (L). 2+ Pedal (R). 2+ Pedal (L) Abdominal Exam: Normal bowel sounds. Soft. normal abdomen, no visible veins, Nontender. Shifting Dullness noted. hepatospenomegaly. No masses Ankle Exam: Negative ankle edema Lower extremities: Negative lower extremity edema. Rene on right forearm and right thigh, approximately 9% total body surface area Neuro/Mental Status: A&O x4. Coherent. Thoughts/Psych: Normal thought pattern. Appropriate mood and affect. Good judgement and insight Skin Exam: Normal inspection. Normal color. Warm. Dry laboratory and microbiology Laboratory Tests 09/29/24 09:06 Test 09/29/24 09:06 Range/Units Serum Glucose 109 H 74-106 mg/dL Problem List/Assessment/Plan Problem List/Assessment/Plan Alcoholic liver cirrhosis Upper GI bleeding due to Esophageal varices, s/p EGD on 08/04/2024 Chronic anemia, s/p 2 RBCs Possible spontaneous bacterial peritonitis Hyperammonemia without metabolic encephalopathy, serum ammonia 57 - CT abdomen pelvis: The liver again demonstrates cirrhotic morphology. There is no gross evidence of hepatic lesion. There is a small amount of perihepatic and perisplenic ascites. Stable splenomegaly. Cholelithiasis. Colonic diverticulosis. - IV NS at 75 cc/hour - IV Protonix 40 mg b.i.d. , Carafate 1 g p.o. t.i.d. - octreotide drip at 50 micrograms/hour per protocol - IV ceftriaxone - lactulose 30 mL p.o. b.i.d. - conservative management recommended by GI at this time - advanced to a mechanical soft diet - Hb dropped 6.7 this a.m. on 09/28/2024 --> 1 PRBC transfusion - completed EGD on 09/29/2024: 3 cm sliding-type hiatal hernia with no significant erosive esophagitis and there was a previously Case resolution clip within the hiatal hernia sac with no active ulceration or bleeding. [id number] portal hypertension gastropathy from which biopsies were obtained. There were no esophageal varices and it was otherwise normal examination to the 2nd and 3rd parts of duodenum with no fresh or old blood in the upper GI tract. History of hepatitis-C - outpatient follow up in GI clinic for hepatitis-C treatment plan Alcohol use disorder Homelessness - counseled patient in detail about the injurious effects of continuous use of alcohol on his liver and overall health. - manager social work consulted S/p mechanical fall - cervical spine CT: No evidence of acute fracture - CXR: No acute cardiopulmonary disease - head-CT: No acute intracranial process Cholelithiasis Diverticulosis without diverticulitis - we will continue to monitor PUD prophylaxis: protonix 40mg b.i.d. DVT prophylaxis: Currently holding Goals of care: Full code, discussed for >16 minutes on 09/27/24 Plan discussed with patient Plan discussed with Dr. Borrero Plan discussed with: Patient, Other (RN) Dietary Evaluation Review Comments: 1) Advance pt diet when medically feasible 2) Consider MARY JANE 1 pkt BID for wounds 3) Continue current plan of care Expected Outcomes/Goals: 1) Pt diet to advance 2) F/U in 2-3 days CC Plasma Assessment Blood Product Administration S: 2039 Date of Service: Sep 29, 2024 Billing Provider: BRENDA BORRERO MD Common Visit Codes: [id number] INP/OBS CARE(HIGH) Coding Comment Comment I saw and evaluated the patient. I reviewed the residents note and agree with findings and plan as documented in the residents note. GI bleed likely from diverticulosis, no evidence of varices, per GI to be follow up as outpatient ARIE LAINEZ Sep 29, 2024 17:01 BRENDA BORRERO MD Sep 29, 2024 20:36
[2024-09-29] MEDS: MELATONIN 5 MG TAB PO SCH (20:54)
[2024-09-30] VITALS (7 sets, daily range): BP systolic 117–153; BP diastolic 64–80; PULSE 52–76; RESP 15–20; TEMP 97.8–98.5; O2SAT 98–99
[2024-09-30] MEDS: LEVOTHYROXINE SODIUM 25 MCG TAB PO SCH (04:19)
[2024-09-30 07:13] LABS: Basophils # (auto) 0 10 ^3/uL (0-0.2); Hematocrit 22.7 % (41.0-53.0); Lymphocytes # (auto) 0.6 10 ^3/uL (0.4-5.4); Monocytes # (auto) 0.2 10 ^3/uL (0-1.3); Neutrophils # (auto) 1.1 10 ^3/uL (1.6-8.6)
[2024-09-30 07:16] LABS: Basophils % (auto) 0.7 % (0.0-2.0); Eosinophils # (auto) 0.1 10 ^3/uL (0-0.8); Eosinophils % (auto) 2.9 % (0.0-7.0); Hemoglobin 7.1 g/dL (13.5-17.5); Lymphocytes % (auto) 29.9 % (10.0-50.0); Mean Corpuscular Hgb Conc. 31.5 g/dL (32.0-36.0); Mean Corpuscular Volume 82.4 fL (80.0-100.0); Monocytes % (auto) 11.7 % (0.0-12.0); Neutrophils % (auto) 54.8 % (37.0-80.0); Platelet Count (auto) 105 10^3/uL (140-450); Red Blood Cells 2.75 10^6/uL (4.5-5.90); Red Cell Distribution Width 20.2 % (11.8-14.3)
[2024-09-30 07:20] LABS: Anion Gap 6 (5-15); Carbon Dioxide 23 mmol/L (20-31); Chloride 111 mmol/L (98-107); Potassium 3.8 mmol/L (3.5-5.1); Sodium 140 mmol/L (136-145)
[2024-09-30 07:22] LABS: Calcium 7.8 mg/dL (8.7-10.4)
[2024-09-30 07:26] LABS: Glucose 96 mg/dL (74-106)
[2024-09-30 07:27] LABS: BUN/Creatinine Ratio 12.5 (10.0-20.0); Blood Urea Nitrogen 11 mg/dL (9-23)
--- NOTE | 2024-09-30 13:03 | DVHPNRES ---
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 Per patient, overnight at the hospital he had multiple episodes of hematemesis and melena. Patient's hemoglobin was noted to be 5.7 and he was subsequently transfused with 2 PRBCs. Past surgical history: Denies Home medications: Colchicine, ferrous sulfate, furosemide, gabapentin, ibuprofen, indomethacin, naproxen, Protonix, thiamine Past Hospitalization: In July 2024 at the [facility] due to upper GI bleeding Social & Personal history: Patient is homeless, notes that he lives in his uncles barn. Patient smokes tobacco occasionally and marijuana often. Continues to abuse alcohol, last drink was 2 days ago when he had 2 cans of 32 oz of beer. Allergies: Denies Patient seen and examined at bedside. Patient is alert and oriented to time, place person and responding to all questions. Patient continues to complain of abdominal pain, however, no tenderness to palpation noted in all 4 quadrants of the abdomen. Hepatomegaly noted, some shifting dullness. Objective vital signs Vital Sign Date Time Temp Pulse Resp B/P (MAP) Pulse Ox O2 Delivery O2 Flow Rate FiO2 09/30/24 09:00 97.9 76 15 153/78 (103) 98 97.9 09/29/24 20:00 Room Air* 0 21 Total Intake and Output 09/29/24 09/29/24 09/30/24 15:00 23:00 07:00 Intake Total 100 ml 450 ml 325 ml Output Total 750 ml 840 ml Balance 100 ml -300 ml -515 ml medications Current Medications Medications Dose Ordered Sig/Jesika Route Start Time Stop Time Status Last Admin Dose Admin Sodium Chloride 10 ml Q8HR IV 09/26/24 22:00 09/30/24 04:26 10 ML Sodium Chloride 1,000 ml @ 75 mls/hr [id number] IV 09/26/24 22:00 09/30/24 04:26 75 MLS/HR Ondansetron HCl 4 mg Q4HP PRN IV 09/26/24 22:00 09/29/24 20:54 4 MG Pantoprazole Sodium 40 mg BID IV 09/27/24 10:00 09/30/24 08:46 40 MG Lactulose 30 ml BID PO 09/27/24 10:00 09/30/24 08:46 30 ML Ceftriaxone Sodium 50 ml @ 100 mls/hr DAILY@2000 IV 09/27/24 20:00 09/29/24 20:50 100 MLS/HR Sucralfate 1 gm TID@0600,1130,2200 PO 09/27/24 22:00 09/30/24 04:18 1 GM Morphine Sulfate 2 mg Q3HPRN PRN IV 09/28/24 12:30 09/30/24 08:47 2 MG Emollient Ointment 1 applic PRN PRN TOP 09/28/24 18:15 Acetaminophen 650 mg Q8HR PO 09/28/24 22:00 09/30/24 04:26 650 MG Gabapentin 300 mg HS PO 09/28/24 22:00 09/29/24 21:07 300 MG Levothyroxine Sodium 25 mcg QAM@0600 PO 09/30/24 06:00 09/30/24 04:19 25 MCG Melatonin 5 mg HS PO 09/29/24 22:00 09/29/24 20:54 5 MG Tbo-Filgrastim 300 mcg DAILY SC 10/01/24 10:00 Examination General Appearance: Cooperative. Well developed. Well nourished. NAD Head Exam: Normal inspection. Pale conjunctiva noted Neck Exam: Normal inspection. Non-tender. Normal alignment Pulmonary/Respiratory: Chest non-tender. Clear bilateral breath sounds, no crackles, no wheezing. Cardiovascular/Chest: Regular rate and rhythm. No murmurs. No JVD. Peripheral Pulses: 2+ Radial (R). 2+ Radial (L). 2+ Pedal (R). 2+ Pedal (L) Abdominal Exam: Normal bowel sounds. Soft. normal abdomen, no visible veins, Nontender. Shifting Dullness noted. hepatospenomegaly. No masses Ankle Exam: Negative ankle edema Lower extremities: Negative lower extremity edema. Rene on right forearm and right thigh, approximately 9% total body surface area Neuro/Mental Status: A&O x4. Coherent. Thoughts/Psych: Normal thought pattern. Appropriate mood and affect. Good judgement and insight Skin Exam: Normal inspection. Normal color. Warm. Dry laboratory and microbiology Laboratory Tests 09/30/24 06:38 Test 09/30/24 06:38 Range/Units Serum Glucose 96 74-106 mg/dL Problem List/Assessment/Plan Problem List/Assessment/Plan Alcoholic liver cirrhosis Pancytopenia likely due to above Possible spontaneous bacterial peritonitis Hyperammonemia without metabolic encephalopathy, serum ammonia 57 - CT abdomen pelvis: The liver again demonstrates cirrhotic morphology. There is no gross evidence of hepatic lesion. There is a small amount of perihepatic and perisplenic ascites. Stable splenomegaly. Cholelithiasis. Colonic diverticulosis. - IV NS at 75 cc/hour - IV Protonix 40 mg b.i.d. , Carafate 1 g p.o. t.i.d. - IV ceftriaxone - lactulose 30 mL p.o. b.i.d. - advanced to a mechanical soft diet - neutropenic precautions in place - ordered HIV, AFP, CEA - started filgrastim 300 mcg subcutaneous day - PT evaluation requested Upper GI bleeding likely due to diverticulosis, no evidence of varices s/p EGD on 08/04/2024 Chronic anemia, s/p 2 RBCs Portal hypertension gastropathy - Hb dropped 6.7 on 09/28/2024 --> 1 PRBC transfusion - completed EGD on 09/29/2024: 3 cm sliding-type hiatal hernia with no significant erosive esophagitis and there was a previously Case resolution clip within the hiatal hernia sac with no active ulceration or bleeding. [id number] portal hypertension gastropathy from which biopsies were obtained. There were no esophageal varices and it was otherwise normal examination to the 2nd and 3rd parts of duodenum with no fresh or old blood in the upper GI tract. - conservative management recommended by GI at this time - ordered iron studies, serum ferritin, folic acid and peripheral blood smear 9% body surface area covered in rene, localized to the right forearm and right upper thigh - wound consult, daily wound dressing - petrolatum application History of hepatitis-C - outpatient follow up in GI clinic for hepatitis-C treatment plan Alcohol use disorder Homelessness - counseled patient in detail about the injurious effects of continuous use of alcohol on his liver and overall health. - public health social worker consulted S/p mechanical fall - cervical spine CT: No evidence of acute fracture - CXR: No acute cardiopulmonary disease - head-CT: No acute intracranial process Cholelithiasis Diverticulosis without diverticulitis - we will continue to monitor PUD prophylaxis: protonix 40mg b.i.d. DVT prophylaxis: Currently holding Goals of care: Full code, discussed for >16 minutes on 09/27/24 Plan discussed with patient Plan discussed with Dr. Borrero Plan discussed with: Patient, Other (RN) My Orders My Orders Orders - ARIE LAINEZ RESIDENT Procedure Category Date Status Time Pt Request For Service PT 09/30/24 Logged 08:39 Hiv 1&2 Antibody LAB 09/30/24 Logged 11:47 Iron Panel LAB 09/30/24 Logged 11:47 Ferritin LAB 09/30/24 Logged 11:47 Folate (Folic Acid) LAB 09/30/24 Logged 11:47 Afp Serum Tumor Marker LAB 09/30/24 Logged 11:47 Carcinoembryonic LAB 09/30/24 Logged Antigen 11:47 Filgrastim-Tbo PHA 10/01/24 In Process (Granix) 10:00 Dietary Evaluation Review Comments: 1) Advance pt diet when medically feasible 2) Consider MARY JANE 1 pkt BID for wounds 3) Continue current plan of care Expected Outcomes/Goals: 1) Pt diet to advance 2) F/U in 2-3 days CC Plasma Assessment Blood Product Administration S: 2039 Date of Service: Sep 30, 2024 Billing Provider: BRENDA BORRERO MD Common Visit Codes: [id number] INP/OBS CARE(HIGH) Coding Comment Comment I saw and evaluated the patient. I reviewed the residents note and agree with findings and plan as documented in the residents note. ARIE LAINEZ RESIDENT Sep 30, 2024 13:03 BRENDA BORRERO MD Sep 30, 2024 22:46
[2024-09-30 13:54] LABS: % Iron Saturation 5.7 % (20-55)
[2024-09-30 13:58] LABS: Ferritin 16.3 ng/mL (22-322)
[2024-09-30 14:13] LABS: Carcinoembryonic Antigen 7.13 ng/mL (<=5.0)
[2024-09-30] MEDS: FILGRASTIM (TBO) 300 MCG/0.5 ML SYRG SC ONE (16:08)
[2024-09-30] MEDS: IOHEXOL 300 MG/ML 100ML BOTTLE IJ ONE (16:22)
--- NOTE | 2024-09-30 17:21 | DVH ---
No intrahepatic masses. Exam: CT CT AB PELVIS W WO CON-IV ONLY History: Hepatocellular carcinoma Comparison Study: None available at time of dictation. Contrast: Type of contrast: Omnipaque 300 Contrast injected: 100 mL Contrast wasted: 0 TECHNIQUE: A digital project manager process development image was obtained. During the uneventful, intravenous administration of c ontrast material, multislice data acquisition was obtained through the abdomen and pelvis. The data s et was subsequently reconstructed into axial images. Images were reviewed on a work station using a c ombination of axial and multiplanar using a variety of window levels and settings. Radiation Dose Information: CT Dose: CTDI volume is 93.8 mGy. Dose-length product is 3058.26 mGy*cm FINDINGS: Lung Bases: No acute or significant lung base finding. Normal heart size. No pleural or pericardial effusion. Liver: Nodular appearance to the surface of the liver consistent with cirrhotic liver disease with sc attered ascites. Gallbladder and Biliary Tree: Calcified gallstones. Spleen: Splenomegaly Pancreas: The pancreas is normal in appearance without focal lesions or abnormal enhancement. Adrenal Glands: Unremarkable Kidneys: Kidneys demonstrate normal symmetric enhancement without focal lesions, calculi or hydroneph rosis. Bladder: Unremarkable Bowel: The stomach is grossly normal in appearance. Small bowel and colon are normal in caliber and d istribution. The appendix is not visualized; however, no secondary findings of acute appendicitis id entified. Ascites: Scattered throughout the abdomen and pelvis. Lymphadenopathy: No mesenteric, retroperitoneal or periportal lymphadenopathy. Abdominal Wall and Mesentery: Unremarkable. Vasculature: The visualized abdominal aorta is normal in size and caliber. Abdominal and pelvic vess els demonstrate normal enhancement. Pelvic Organs: Unremarkable Musculoskeletal: No aggressive focal bony lesions, acute fractures or dislocation. Soft tissues: Unremarkable. IMPRESSION: 1. No intrahepatic masses. Liver surface appears nodular suggesting cirrhotic liver disease. 2. Scattered ascites throughout the abdomen and pelvis. 3. Splenomegaly. 4. Cholelithiasis 5. Scattered bilateral nonobstructing renal calculi. All CT scans at this medical facility are performed using dose modulation techniques as appropriate t o a performed exam including the following: Automated exposure control was utilized; adjustment of th e MA and/or KV according to patient size; and use of iterative reconstruction technique. HS:Y
--- NOTE | 2024-09-30 20:11 | DVHPN2 ---
Progress Note - Dictate Date Seen: Sep 30, 2024 Medical Necessity Reason Pt with a Central, PICC or Fol: No Subjective No new complaints ; complains of generalized pain and also abdominal pain Patient is undergoing wound care for his rene over 9% of the body No further episode of hematemesis; hemoglobin at 7.1 vital signs Vital Sign Date Time Temp Pulse Resp B/P (MAP) Pulse Ox O2 Delivery O2 Flow Rate FiO2 09/30/24 17:40 61 16 139/79 09/30/24 17:00 98.0 99 98.0 09/30/24 08:00 Room Air* 0 21 Total Intake and Output 09/29/24 09/29/24 09/30/24 15:00 23:00 07:00 Intake Total 100 ml 450 ml 325 ml Output Total 750 ml 840 ml Balance 100 ml -300 ml -515 ml medications Current Medications Medications Dose Ordered Sig/Jesika Route Start Time Stop Time Status Last Admin Dose Admin Sodium Chloride 10 ml Q8HR IV 09/26/24 22:00 09/30/24 13:00 10 ML Sodium Chloride 1,000 ml @ 75 mls/hr [id number] IV 09/26/24 22:00 09/30/24 04:26 75 MLS/HR Ondansetron HCl 4 mg Q4HP PRN IV 09/26/24 22:00 09/29/24 20:54 4 MG Pantoprazole Sodium 40 mg BID IV 09/27/24 10:00 09/30/24 08:46 40 MG Lactulose 30 ml BID PO 09/27/24 10:00 09/30/24 08:46 30 ML Ceftriaxone Sodium 50 ml @ 100 mls/hr DAILY@2000 IV 09/27/24 20:00 09/29/24 20:50 100 MLS/HR Sucralfate 1 gm TID@0600,1130,2200 PO 09/27/24 22:00 09/30/24 13:00 1 GM Morphine Sulfate 2 mg Q3HPRN PRN IV 09/28/24 12:30 09/30/24 16:18 2 MG Emollient Ointment 1 applic PRN PRN TOP 09/28/24 18:15 Acetaminophen 650 mg Q8HR PO 09/28/24 22:00 09/30/24 13:00 650 MG Gabapentin 300 mg HS PO 09/28/24 22:00 11/8/24 21:07 300 MG Levothyroxine Sodium 25 mcg QAM@0600 PO 09/30/24 06:00 09/30/24 04:19 25 MCG Melatonin 5 mg HS PO 09/29/24 22:00 09/29/24 20:54 5 MG Tbo-Filgrastim 300 mcg DAILY SC 10/01/24 10:00 objective General: NAD, AAOX3 Chest: lung tejeda clear to auscultation Heart: RRR, no murmur Abdomen: Mild left-sided tenderness to palpation, +BS laboratory and microbiology Laboratory Tests 09/30/24 06:38 Test 09/30/24 06:38 Range/Units Serum Glucose 96 74-106 mg/dL Repeat CT ABD WITH IV Contrast IMPRESSION: 1. No intrahepatic masses. Liver surface appears nodular suggesting cirrhotic liver disease. 2. Scattered ascites throughout the abdomen and pelvis. 3. Splenomegaly. 4. Cholelithiasis 5. Scattered bilateral nonobstructing renal calculi. Problems(with codes): (1) Severe anemia (2) Thrombocytopenia (3) Alcoholism (4) GI bleed (5) Hyperammonemia (6) Liver cirrhosis (7) Hematemesis (8) Hepatitis C antibody positive in blood (9) Pancytopenia Prognosis Plan Pancytopenia related to cirrhosis and hypersplenism, patient has splenomegaly Repeat labs in a.m. Check serum alpha fetoprotein and CEA levels Transfuse 1 unit PRBC if hemoglobin drops below seven Continue IV PPI; start IV iron Patient has generalized pain and weakness related to his recent rene and grafts Dietary Evaluation Review Comments: 1) Advance pt diet when medically feasible 2) Consider MARY JANE 1 pkt BID for wounds 3) Continue current plan of care Expected Outcomes/Goals: 1) Pt diet to advance 2) F/U in 2-3 days Plan discussed with: Patient, Other (Dr Maciel) CC Plasma Assessment Blood Product Administration S: [id number] NAEEM SILVA MD Sep 30, 2024 20:11
[2024-10-01 01:00] VITALS: BP 134/74; PULSE 74; RESP 20; TEMP 97.4; O2SAT 98
[2024-10-01 04:29] LABS: Chloride 111 mmol/L (98-107); Potassium 3.7 mmol/L (3.5-5.1); Sodium 138 mmol/L (136-145)
[2024-10-01 04:30] LABS: Anion Gap 6 (5-15); Carbon Dioxide 21 mmol/L (20-31)
[2024-10-01 04:35] LABS: BUN/Creatinine Ratio 9.9 (10.0-20.0); Blood Urea Nitrogen 8 mg/dL (9-23); Glucose 95 mg/dL (74-106)
[2024-10-01 04:37] LABS: Basophils # (auto) 0 10 ^3/uL (0-0.2); Basophils % (auto) 0.2 % (0.0-2.0); Eosinophils # (auto) 0 10 ^3/uL (0-0.8); Eosinophils % (auto) 0.6 % (0.0-7.0); Hemoglobin 7.3 g/dL (13.5-17.5); Lymphocytes # (auto) 0.6 10 ^3/uL (0.4-5.4); Monocytes # (auto) 0.5 10 ^3/uL (0-1.3); Neutrophils # (auto) 5.8 10 ^3/uL (1.6-8.6)
[2024-10-01 04:40] LABS: Hematocrit 22.1 % (41.0-53.0); Lymphocytes % (auto) 8.8 % (10.0-50.0); Mean Corpuscular Hemoglobin 26.5 pg (28.0-32.0); Mean Corpuscular Hgb Conc. 32.8 g/dL (32.0-36.0); Mean Corpuscular Volume 80.8 fL (80.0-100.0); Monocytes % (auto) 7.2 % (0.0-12.0); Neutrophils % (auto) 83.2 % (37.0-80.0); Platelet Count (auto) 87 10^3/uL (140-450); Red Blood Cells 2.73 10^6/uL (4.5-5.90)
[2024-10-01 04:44] LABS: Red Cell Distribution Width 20.1 % (11.8-14.3)
[2024-10-01 05:09] VITALS: BP 134/74; PULSE 74; RESP 18
[2024-10-01 05:45] LABS: Anisocytosis Slight; Platelet Estimate Decreased
[2024-10-01 05:46] LABS: Stomatocytes Few
[2024-10-01 05:47] LABS: Ovalocytes FEW
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
[2024-10-01] MEDS ORDERED: FILGRASTIM (TBO) 300 MCG/0.5 ML SYRG SC SCH (10:00)
[2024-10-01] MEDS ORDERED: SODIUM FERR GLUC 62.5MG/5ML 110 ML IV SCH (12:00)
[2024-10-01] MEDS ORDERED: IRON SUCROSE COMPLEX 110 ML IV SCH (12:00)
--- NOTE | 2024-10-01 17:52 | DVHINCON2 ---
Date of service: Oct 01, 2024 Family History: Diabetes mellitus G8 MOTHER Allergies: Coded Allergies: NO KNOWN ALLERGIES (Unverified , 11/03/22) Home Meds Active Scripts Ibuprofen (Ibuprofen) 800 Mg Tab, 1 TAB PO TID, #20 TAB Prov:SWAPNA ROMANO 08/21/23 Colchicine (Colchicine) 0.6 Mg Cap, 0.6 MG PO BID, #20 CAP Prov:SWAPNA ROMANO 08/21/23 Indomethacin (Indomethacin) 50 Mg Cap, 1 CAP PO TID, #30 CAP Prov:SWAPNA ROMANO 08/21/23 Pantoprazole Sodium Sesquihydr (Pantoprazole Sodium) 40 Mg Tab, 40 MG PO DAILY for 30 Days, #30 TAB Prov:LEROY DE LA ROSA MD 11/08/22 Ferrous Sulfate (FERROUS SULFATE) 325 Mg Tb, 1 TAB PO DAILY, #30 TAB 3 Refills Prov:LEROY DE LA ROSA MD 11/08/22 Thiamine Hcl (VITAMIN B-1) 100 Mg Tb, 100 MG PO DAILY for 30 Days, #30 TAB Prov:LEROY DE LA ROSA MD 11/08/22 Reported Medications Naproxen (NAPROSYN TABLET) 500 Mg Tb 06/25/24 Furosemide (Furosemide) 40 Mg Tab 06/25/24 Hydroxyzine HCl (Hydroxyzine Hydrochloride) 50 Mg Tab, 50 MG PO, TAB 11/04/22 Gabapentin (Gabapentin) 600 Mg Tab, 800 MG PO for 30 Days, MG 11/04/22 Furosemide (Furosemide) 20 Mg Tab, 25 MG PO BIDD for 30 Days, MG 11/04/22 Hydrocodone-Acetaminophen (Hydrocodone Bitartrate/AC 10-325 mg) 1 Tab Tab, 1 TAB PO, TAB 11/04/22 Current Medications Current Medications Medications (Trade) Dose Ordered Sig/Jesika Route PRN Reason Start Time Stop Time Status Last Admin Tbo-Filgrastim (Granix) 300 mcg DAILY SC 10/01/24 10:00 10/01/24 11:13 DC Ferric Sodium Gluconate Complex 110 ml @ 110 mls/hr DAILY@1200 IV 10/01/24 12:00 10/01/24 10:25 DC Iron Sucrose 110 ml @ 110 mls/hr DAILY@1200 IV 10/01/24 12:00 10/01/24 11:13 DC Vital Signs Vital Signs Date Time Temp Pulse Resp B/P (MAP) Pulse Ox O2 Delivery O2 Flow Rate FiO2 10/01/24 05:09 74 18 134/74 10/01/24 01:00 97.4 98 97.4 09/30/24 20:00 Room Air* 0 21 Labs/Diagnostic Data Labs Test 10/01/24 04:05 09/30/24 13:14 09/29/24 13:29 09/29/24 09:06 Range/Units White Blood Count 7.0 # 4.4-10.8 10^3/uL Red Blood Count 2.73 L 4.5-5.90 10^6/uL Hemoglobin 7.3 L 13.5-17.5 g/dL Hematocrit 22.1 L 41.0-53.0 % Mean Corpuscular Volume 80.8 80.0-100.0 fL Mean Corpuscular Hemoglobin 26.5 L 28.0-32.0 pg Mean Corpuscular Hemoglobin Concent 32.8 32.0-36.0 g/dL Red Cell Distribution Width 20.1 H 11.8-14.3 % Platelet Count 87 L 140-450 10^3/uL Mean Platelet Volume 7.2 6.9-10.8 fL Neutrophils (%) (Auto) 83.2 H 37.0-80.0 % Lymphocytes (%) (Auto) 8.8 L 10.0-50.0 % Monocytes (%) (Auto) 7.2 0.0-12.0 % Eosinophils (%) (Auto) 0.6 0.0-7.0 % Basophils (%) (Auto) 0.2 0.0-2.0 % Neutrophils # (Auto) 5.8 1.6-8.6 10 ^3/uL Lymphocytes # (Auto) 0.6 0.4-5.4 10 ^3/uL Monocytes # (Auto) 0.5 0-1.3 10 ^3/uL Eosinophils # (Auto) 0 0-0.8 10 ^3/uL Basophils # (Auto) 0 0-0.2 10 ^3/uL Nucleated Red Blood Cells 0.0 % Platelet Estimate Decreased Anisocytosis (manual) Slight Ovalocytes Few Stomatocytes Few Sodium Level 138 136-145 mmol/L Potassium Level 3.7 3.5-5.1 mmol/L Chloride Level 111 H 98-107 mmol/L Carbon Dioxide Level 21 20-31 mmol/L Anion Gap 6 5-15 Blood Urea Nitrogen 8 L 9-23 mg/dL Creatinine 0.81 0.700-1.30 mg/dL Glomerular Filtration Rate Calc 99 >90 mL/min BUN/Creatinine Ratio 9.9 L 10.0-20.0 Serum Glucose 95 74-106 mg/dL Calcium Level 8.0 L 8.7-10.4 mg/dL Iron Level 19 L 65-175 ug/dL Total Iron Binding Capacity 333 250-425 ug/dL Percent Iron Saturation 5.7 L 20-55 % Ferritin 16.3 L 22-322 ng/mL Carcinoembryonic Antigen 7.13 <=5.0 ng/mL HIV (1&2) Antibody Negative Negative Urine Color Light-yellow Yellow Urine Clarity Clear Clear Urine pH 6.0 5.0-9.0 Urine Specific [place] 1.010 1.001-1.035 Urine Protein Negative Negative Urine Ketones Negative Negative Urine Blood Negative Negative /uL Urine Nitrite Negative Negative Urine Bilirubin Negative Negative Urine Urobilinogen Normal Negative mg/dL Urine Leukocyte Esterase Negative Negative /uL Urine RBC 1 0 - 3 /hpf Urine WBC <1 0 - 3 /hpf Urine Squamous Epithelial Cells None seen <5 /hpf Urine Bacteria None seen None Seen /hpf Urine Glucose Normal Normal mg/dL Total Bilirubin 0.5 0.2-1.0 mg/dL Aspartate Amino Transferase (AST) 53 H 13-40 U/L Alanine Aminotransferase (ALT) 23 7-40 U/L Alkaline Phosphatase 81 46-116 U/L Total Protein 5.2 L 5.7-8.2 g/dL Albumin 2.4 L 3.2-4.8 g/dL Test 09/28/24 06:40 09/27/24 00:17 09/26/24 15:44 09/26/24 14:55 Range/Units Prothrombin Time 12.8 H 9.3-11.8 sec Prothrombin Time INR 1.23 H 0.9-1.15 Free Thyroxine (T4) Calculated 0.76 L 0.89-1.76 ng/dL Free Triiodothyronine (T3) pg/mL 1.62 L 2.3-4.2 pg/mL Hemoglobin A1c 5.0 <5.7 % A1C Vitamin B12 Level 500 211-911 pg/mL Vitamin D 25-Hydroxy 56.6 30.0-100 ng/mL Thyroid Stimulating Hormone (TSH) 0.54 L 0.55-4.78 uIU/mL Troponin I High Sensitivity < 3 L </=54 ng/L Activated Partial Thromboplast Time 26.9 24.5-34.5 SEC Magnesium Level 2.0 1.6-2.6 mg/dL B-Type Natriuretic Peptide 307.76 0-100 pg/mL Plasma/Serum Blood Alcohol 3.5 <10 mg/dL Test 09/26/24 14:53 Range/Units Lactic Acid Level 1.0 0.4-2.0 mmol/L Ammonia 57 H 11-32 umol/L MAXIMINO IPNTO MD Oct 01, 2024 17:52
[2024-10-02 11:51] LABS: Folate (Folic Acid) 23.2 ng/mL (>5.38)
--- NOTE | 2024-10-12 08:36 | CODING ---
Date of Service: Sep 26, 2024 Billing Provider: BASILIA ALAMO MD Common Visit Codes: [id number] INP/OBS CARE (HIGH) BASILIA ALAMO MD Oct 12, 2024 08:36
== END 2024-10-01 07:11 | disposition left against medical advice (07) | DRG 280 ==
LOC: EDBD 14:08 → ER 14:13 → TELE 21:52 → TELE-WESTW 21:54 → TELE-EAST 09-28 16:16
PROVIDERS: ADMIT Student in an Organized Health Care Education/Training Program; ATTEND Emergency Medicine
PROC: 30233N1 Transfusion of Nonautologous Red Blood Cells into Peripheral Vein, Percutaneous Approach (ICD-10-PCS; 2024-09-26)
PROC: 0DB68ZX Excision of Stomach, Via Natural or Artificial Opening Endoscopic, Diagnostic (ICD-10-PCS; principal; 2024-09-29 09:52)
DX: K70.31 Alcoholic cirrhosis of liver with ascites (principal); K65.2 Spontaneous bacterial peritonitis; D61.818 Other pancytopenia; K76.6 Portal hypertension; D70.9 Neutropenia, unspecified; R16.2 Hepatomegaly with splenomegaly, not elsewhere classified; I50.9 Heart failure, unspecified; K80.20 Calculus of gallbladder without cholecystitis without obstruction; B19.20 Unspecified viral hepatitis C without hepatic coma; K57.30 Diverticulosis of large intestine without perforation or abscess without bleeding; F10.10 Alcohol abuse, uncomplicated; Y90.9 Presence of alcohol in blood, level not specified; K31.9 Disease of stomach and duodenum, unspecified; K44.9 Diaphragmatic hernia without obstruction or gangrene; K46.9 Unspecified abdominal hernia without obstruction or gangrene; G62.9 Polyneuropathy, unspecified; Z59.00 Homelessness unspecified; Z91.148 Patient's other noncompliance with medication regimen for other reason
CPT/HCPCS: 36415; 70450; 71045; 72125; 74176; 74178; 80048; 80053; 80320; 81001; 82105; 82140; 82306; 82378; 82607; 82728; 82746; 83036; 83540; 83550; 83605; 83735; 83880; 84439; 84443; 84481; 84484; 85025; 85610; 85730; 86703; 86850; 86900; 86901; 86920; 97163; 99291; G0378; J1447; J2003; J2250; J2405; J2470; J2704

== ENCOUNTER 2024-11-02 18:34 | Inpatient (IN) | payer MEDICAID ==
[2024-10-28] MEDS: OCTREOTIDE ACETATE 500 MCG in SODIUM CHL 0.9% 99 ML IV SCH (20:52)
[2024-10-28] MEDS: cefTRIAXone 1GM/50ML D5W 50 ML IV ONE (20:52)
[2024-10-28] MEDS: OCTREOTIDE ACETATE 50 MCG in SODIUM CHL 0.9% 50 ML IV ONE (20:52)
[2024-10-28] MEDS: OCTREOTIDE ACETATE 100 MCG/ML VL IV ONE (20:52)
[~2024-11-02] VITALS: Ht 177.8 cm; Wt 86.1 kg
--- NOTE | 2024-11-02 18:52 | ED.PDOC ---
GI ASSESSMENT HPI Comments 64-year-old male who came to ER via EMS for GI bleed. Patient does have alcoholic liver cirrhosis, GI bleed, status post blood transfusions. States for the past 2 days, he has been having episodes of nausea and vomiting/hematemesis of coffee-ground emesis, >10x, along with episodes of melena. Patient complai michael of abdominal pain, chills, dizziness, generalized weakness, shortness of breath. Patient admits that he still drinks alcohol but is down to 2 bottles of beer per day. Chief Complaint: GI bleed Time Seen by MD: 18:50 Primary Care Provider: NONE Reviewed Notes: Nurses Notes, Sld Inclusion Teacher Notes Allergies: Coded Allergies: NO KNOWN ALLERGIES (Unverified , 11/03/22) Home Meds Active Scripts Ibuprofen (Ibuprofen) 800 Mg Tab, 1 TAB PO TID, #20 TAB Prov:SWAPNA ROMANO 08/21/23 Colchicine (Colchicine) 0.6 Mg Cap, 0.6 MG PO BID, #20 CAP Prov:SWAPNA ROMANO 08/21/23 Indomethacin (Indomethacin) 50 Mg Cap, 1 CAP PO TID, #30 CAP Prov:SWAPNA ROMANO 08/21/23 Pantoprazole Sodium Sesquihydr (Pantoprazole Sodium) 40 Mg Tab, 40 MG PO DAILY for 30 Days, #30 TAB Prov:LEROY DE LA ROSA MD 11/08/22 Ferrous Sulfate (FERROUS SULFATE) 325 Mg Tb, 1 TAB PO DAILY, #30 TAB 3 Refills Prov:LEROY DE LA ROSA MD 11/08/22 Thiamine Hcl (VITAMIN B-1) 100 Mg Tb, 100 MG PO DAILY for 30 Days, #30 TAB Prov:LEROY DE LA ROSA MD 11/08/22 Reported Medications Naproxen (NAPROSYN TABLET) 500 Mg Tb 06/25/24 Furosemide (Furosemide) 40 Mg Tab 06/25/24 Hydroxyzine HCl (Hydroxyzine Hydrochloride) 50 Mg Tab, 50 MG PO, TAB 11/04/22 Gabapentin (Gabapentin) 600 Mg Tab, 800 MG PO for 30 Days, MG 11/04/22 Furosemide (Furosemide) 20 Mg Tab, 25 MG PO BIDD for 30 Days, MG 11/04/22 Hydrocodone-Acetaminophen (Hydrocodone Bitartrate/AC 10-325 mg) 1 Tab Tab, 1 TAB PO, TAB 11/04/22 Information Source: Patient, Emergency Med Personnel Mode of Arrival: EMS Timing: Days Duration: Since onset Prehospital treatment: None Quality: Aching Vomitus: Coffee Grounds Stool: Black Severity: Moderate Recent: Ingestion of ETOH Recent Hx of: GI Bleed, Ulcer Disease, Liver Disease Pain Location: Epigastric Modifying Factors: Nothing Associated sign and symptoms: Nausea, Vomiting, Diarrhea, Hematemesis, Melena, Abdominal Pain, Faintness Review of Systems: REVIEW OF SYSTEMS: No fever, (+) chills, fatigue HEENT: No sore throat, no earache, no congestion, no neck pain. Cardiac: No chest pain. No palpitations. Lungs: (+) shortness of breath, no cough. GI: (+), abdominal pain, nausea, hematemesis, melena : No dysuria, frequency, or urgency. No hematuria. Musculoskeletal: No joint pain , no joint swelling, no extremity edema. Skin: No rash, no itching. Neuro: No headache, no dizziness, (+)weakness Vital Signs Vital Signs Date Time Temp Pulse Resp B/P (MAP) Pulse Ox O2 Delivery O2 Flow Rate FiO2 11/02/24 20:00 99 11/02/24 19:55 20 143/53 11/02/24 18:47 97.8 100 Physical Exam General: Awake, alert and oriented. No acute distress. Skin: Skin appears jaundiced HEENT: The head is normocephalic and atraumatic. Conjunctivae are clear without exudates or hemorrhage. Sclera is non-icteric. EOM are intact. No signs of nystagmus. Eyelids are normal in appearance without swelling or lesions. Oral mucosa is pink and moist Neck: The neck is supple with normal range of motion. No JVD. Cardiac: Heart rate and rhythm are normal. No murmurs, gallops, or rubs are auscultated. Respiratory: No signs of respiratory distress. Lung sounds are clear in all lobes bilaterally without rales, ronchi, or wheezes. Abdominal: Abdomen is soft, generally tender, Bowel sounds are present and normoactive in all four quadrants. Extremities: Mild bilateral ankle edema Neurological: The patient is awake, alert and oriented to person, place, and t anum with normal speech. Speech is clear. There is no facial asymmetry. Psychiatric: Appropriate mood and affect. Good judgement and insight. No visual or auditory hallucinations. Past Medical History PAST MEDICAL HISTORY: Anemia, CHF, Liver Past Medical History (Other): Alcoholic liver cirrhosis, hepatitis-C, pulmonary hypertension, third-degree rene 9% Surgical History (Other): Knee surgery, skin grafts Family History Family History: Reviewed,noncontributory to illness Social History Smoker: Non-Smoker Alcohol: Heavy Drugs: Denies Drug Use Lives In: Home EKG EKG : Comments Sinus tachycardia, rate of 108, no STEMI, QTC 481, QRS 57. Was a procedure done? Was a procedure done?: No GI differential Dx Differential Diagnosis: Angina/AR, Bowel Obstruction, Cholangitis, Cholecystitis, Diverticular disease, Gastritis/PUD, Gastroenteritis, GI hemorrhage, Hepatitis, Ischemic Bowel, Pancreatitis, Dehydration, Electrolyte Imbalance, Anemia, Esophageal Varicies, Stress Ulcer, Other (Bowel perforation) X-Ray, Labs, Meds, VS Vital Signs Date Time Temp Pulse Resp B/P (MAP) Pulse Ox O2 Delivery O2 Flow Rate FiO2 11/02/24 20:00 99 11/02/24 19:55 98 20 143/53 11/02/24 18:53 108 11/02/24 18:47 97.8 119 20 123/73 (90) 100 Lab Test 11/02/24 19:11 Range/Units White Blood Count 10.0 4.4-10.8 10^3/uL Red Blood Count 1.92 L 4.5-5.90 10^6/uL Hemoglobin 4.3 *L 13.5-17.5 g/dL Hematocrit 14.9 L 41.0-53.0 % Mean Corpuscular Volume 77.8 L 80.0-100.0 fL Mean Corpuscular Hemoglobin 22.1 L 28.0-32.0 pg Mean Corpuscular Hemoglobin Concent 28.5 L 32.0-36.0 g/dL Red Cell Distribution Width 21.8 H 11.8-14.3 % Platelet Count 146 140-450 10^3/uL Mean Platelet Volume 7.8 6.9-10.8 fL Neutrophils (%) (Auto) 70.3 37.0-80.0 % Lymphocytes (%) (Auto) 19.4 10.0-50.0 % Monocytes (%) (Auto) 9.0 0.0-12.0 % Eosinophils (%) (Auto) 0.6 0.0-7.0 % Basophils (%) (Auto) 0.7 0.0-2.0 % Neutrophils # (Auto) 7.0 1.6-8.6 10 ^3/uL Lymphocytes # (Auto) 1.9 0.4-5.4 10 ^3/uL Monocytes # (Auto) 0.9 0-1.3 10 ^3/uL Eosinophils # (Auto) 0.1 0-0.8 10 ^3/uL Basophils # (Auto) 0.1 0-0.2 10 ^3/uL Nucleated Red Blood Cells 0.0 % Prothrombin Time 12.7 H 9.3-11.8 sec Prothrombin Time INR 1.22 H 0.9-1.15 Sodium Level 140 136-145 mmol/L Potassium Level 3.9 3.5-5.1 mmol/L Chloride Level 111 H 98-107 mmol/L Carbon Dioxide Level 17 L 20-31 mmol/L Anion Gap 12 5-15 Blood Urea Nitrogen 36 H 9-23 mg/dL Creatinine 0.79 0.700-1.30 mg/dL Glomerular Filtration Rate Calc 100 >90 mL/min BUN/Creatinine Ratio 45.6 H 10.0-20.0 Serum Glucose 114 H 74-106 mg/dL Calcium Level 8.7 8.7-10.4 mg/dL Magnesium Level 2.1 1.6-2.6 mg/dL Total Bilirubin 0.7 0.2-1.0 mg/dL Aspartate Amino Transferase (AST) 63 H 13-40 U/L Alanine Aminotransferase (ALT) 29 7-40 U/L Alkaline Phosphatase 113 46-116 U/L Troponin I High Sensitivity 3 L </=54 ng/L C-Reactive Protein High Sensitivity 0.02 <1.0 mg/dL Total Protein 5.5 L 5.7-8.2 g/dL Albumin 3.0 L 3.2-4.8 g/dL Plasma/Serum Blood Alcohol 3.8 <10 mg/dL Current Medications Medications (Trade) Dose Ordered Sig/Jesika Route Start Time Stop Time Status Last Admin Octreotide Acetate 500 mcg/ Sodium Chloride 100 ml @ 10 mls/hr Q10H IV 11/02/24 18:45 10/28/24 20:52 Octreotide Acetate 50 mcg/ Sodium Chloride 50.5 ml @ 204 mls/hr ONCE ONCE IV 11/02/24 18:45 11/02/24 18:59 DC 10/28/24 20:52 Pantoprazole Sodium (Protonix) 80 mg ONCE ONCE IV 11/02/24 18:45 11/02/24 18:57 DC 11/02/24 20:38 Ondansetron HCl (Zofran) 4 mg ONCE ONCE IV 11/02/24 18:45 11/02/24 18:57 DC 11/02/24 19:55 Ceftriaxone Sodium 50 ml @ 100 mls/hr ONCE ONCE IV 11/02/24 18:45 11/02/24 19:14 DC 10/28/24 20:52 Morphine Sulfate 2 mg ONCE ONCE IV 11/02/24 19:00 11/02/24 19:01 DC 11/02/24 19:55 Octreotide Acetate (SandoSTATIN) 50 mcg ONCE ONCE IV 11/02/24 19:15 11/02/24 19:16 DC 10/28/24 20:52 Examination: XY KUB ABDOMEN SINGLE VIEW FINDINGS: Bowel gas pattern is unremarkable. The lung bases are unremarkable. No acute osseous abnormality identified. IMPRESSION: 1. Nonobstructive bowel gas pattern. Exam: CT CT AB PEL WITH IV CON ONLY History: Upper GI Bleed Comparison Study: None available at time of dictation. TECHNIQUE: Multidetector CT of the abdomen and pelvis with contrast. Axial, coronal and sagittal multiplanar reformats were obtained from the axial data set by the technologist. Radiation Dose Information: CT Dose: CTDI volume is 17.15 mGy. Dose-length product is 1048.8 mGy*cm FINDINGS: Bilateral dependent atelectasis. Partially visualized heart is unremarkable. There is micronodular contour of the liver with recanalization of the umbilical vein gastroesophageal , and abdomen varices consistent with liver cirrhosis and associated portal hypertension. Mild splenomegaly. No focal hepatic or splenic lesions. Cholelithiasis with mild nonspecific gallbladder wall thickening. Pancreas and adrenal glands unremarkable. Multiple bilateral renal nonobstructing calculi. Subcentimeter hypodense right renal lesions that are too small to characterize.. No hydronephrosis bilaterally. Punctate calcification adjacent to the right distal ureter. No obst ructing ureteral calculus is noted. Urinary bladder is unremarkable. Prostate is normal in size with focus of calcification. Hypodense focus with streak artifact is noted over the gastroesophageal junction. Mild gastric wall thickening. Mild wall thickening of proximal small bowel loops. The remainder of the small bowel loops unremarkable. Appendix is unremarkable. Small to moderate amount of fecal material within the colon. Descending colon and sigmoid diverticulosis without diverticulitis. Mild rectal wall thickening. No evidence of intraperitoneal free air. No intraperitoneal free fluid. Mild mesenteric edema. No evidence of aortic aneurysm. Mild atherosclerotic calcification of the aorta and bilateral iliacs. Shotty mesenteric lymph nodes. Bilateral prominent inguinal lymph nodes measuring up to 1.1 cm which may be reactive. Small fat containing left inguinal hernia. The soft tissues are unremarkable. Multilevel endplate irregularity multilevel moderate degenerative changes of the thoracic and lumbar spine. IMPRESSION: Cirrhotic appearing liver with associated varices. Cholelithiasis with nonspecific gallbladder wall thickening. Mild wall thickening of the stomach and proximal small bowel loops which may be due to portal hypertensive gastro enteropathy with gastroenteritis not excluded. Mild rectal wall thickening which may be due to inadequate distention with neoplasm not excluded. Colonic diverticulosis without diverticulitis. Bilateral renal nonobstructing calculi. Mild mesenteric edema which may be from the liver cirrhosis. Time of 1ST Reevaluation: 18:45 Reevaluation 1ST: Unchanged Patient Education/Counseling: Diagnosis, Treatment Family Education/Counseling: No Family Present Departure 1 Departure Time of Disposition: 19:51 Impression: Primary Impression: Alcoholism Additional Impressions: Anemia Liver cirrhosis GI bleed Sinus tachycardia Disposition: ADMITTED INPATIENT Condition: Serious Comments 64-year-old male with a history of alcoholic liver cirrhosis presents to the emergency department with GI bleed, hemoglobin of 4.3. Blood transfusion was initiated in the ED. CT scan showed abnormal findings of rectal wall thickening, changes secondary to liver cirrhosis. Patient admitted for further treatment, evaluation and monitoring. Extensive evaluation was performed in attempt to identify or rule out: (See differential diagnosis section) The following tests were ordered, and results were reviewed by me: (See diagnostic results section) The following test were independently interpreted by me: EKG, KUB (no free air under the diaphragm) I reviewed and agreed with the following test results read by other providers: MILDRED I reviewed the following notes from the pt's past medical encounters: September 2024 admission for GI bleed Additional information was gathered from interviewing the following independent historians: EMS personnel Discussion of management or test interpretation with external physician/other qualified health menagerie caretaker: N/A Addressed one or more chronic illnesses with severe exacerbation, progression, or side effects of treatment: Alcoholic liver cirrhosis, hepatitis-C, pulmonary hypertension, third-degree rene 9% and an acute or chronic illness that poses a threat to life or bodily function: Gastrointestinal bleeding, severe anemia requiring blood transfusion Decision regarding hospitalization or escalation of hospital level of care: Risk and benefits of admission for further treatment of patient's condition was considered. Due to patient's current clinical condition, high risk of decline and poor outcome if discharged and need for further inpatient management and monitoring, patient will be admitted to the hospital. Parenteral controlled substances: Morphine Decision regarding elective major surgery with identified patient or procedure risk factors: Alcoholism, cirrhosis, severe anemia Critical Care Note Critical Care Time?: Yes (35 min-critical care time only) Critical care comment: Total critical care time: Approximately 35 minutes Due to a high probability of clinically significant, life threatening deterioration, the patient required my highest level of preparedness to intervene emergently and I personally spent this critical care time directly and personally managing the patient. This critical care time included obtaining a history; examining the patient; pulse oximetry; ordering and review of studies; arranging urgent treatment with development of a management plan; evaluation of patient's response to treatment; frequent reassessment; and, discussions with other providers. This critical care time was performed to assess and manage the high probability of imminent, life-threatening deterioration that could result in multi-organ failure. It was exclusive of separately billable procedures and treating other patients and teaching time. Please see my other sections and the rest of the note for further information on patient assessment and treatment. Stability Stability form required: No Heart Score Heart Score: Heart Score Response (Comments) Value History N/A 0 EKG N/A 0 Age N/A 0 Risk Factors N/A 0 Troponin N/A 0 Total 0 I personally scribed for ERYN BAEZ MD ([email or web address]) on 11/02/24 at 18:52. Electronically submitted by Fernando Crouch ([facility]). I personally scribed for ERYN BAEZ MD ([email or web address]) on 11/02/24 at 19:19. Electronically submitted by Fernando Crouch ([facility]). I personally scribed for ERYN BAEZ MD ([email or web address]) on 11/02/24 at 20:51. Electronically submitted by Fernando Crouch ([facility]). I personally scribed for ERYN BAEZ MD ([email or web address]) on 11/02/24 at 22:18. Electronically submitted by Fernando Crouch ([facility]). ERYN BAEZ MD Nov 02, 2024 18:52
--- NOTE | 2024-11-02 19:15 | ECG ---
[facility] Test Date: 2024-11-02 Test Time: 18:47:42 Pat Name: MARY GRACE CAMEJO Department: ed Room: 0279T Gender: M Hat Lacer: guicho : 1960 Requested By: ERYN BAEZ Order Number: [id number] Reading MD: Damian Oconnor Measurements Intervals [place] Rate: 108 P: 90 TX: 174 QRS: 57 QRSD: 78 T: 11 QT: 359 QTc: 481 Interpretive Statements Sinus tachycardia with irregular rate Posterior infarct, old Nonspecific repol abnormality, diffuse leads Electronically Signed On 11-03-2024 12:51:09 PST by Damian Oconnor Please click the below link to view image of tracing.
[2024-11-02 19:30] VITALS: PULSE 96; RESP 19; O2SAT 99
[2024-11-02 19:32] LABS: Eosinophils # (auto) 0.1 10 ^3/uL (0-0.8); Monocytes # (auto) 0.9 10 ^3/uL (0-1.3)
[2024-11-02 19:33] LABS: Basophils # (auto) 0.1 10 ^3/uL (0-0.2); Basophils % (auto) 0.7 % (0.0-2.0); Eosinophils % (auto) 0.6 % (0.0-7.0); Hematocrit 14.9 % (41.0-53.0); Lymphocytes # (auto) 1.9 10 ^3/uL (0.4-5.4); Lymphocytes % (auto) 19.4 % (10.0-50.0); Mean Corpuscular Hemoglobin 22.1 pg (28.0-32.0); Mean Corpuscular Hgb Conc. 28.5 g/dL (32.0-36.0); Mean Corpuscular Volume 77.8 fL (80.0-100.0); Neutrophils % (auto) 70.3 % (37.0-80.0); Platelet Count (auto) 146 10^3/uL (140-450); Red Blood Cells 1.92 10^6/uL (4.5-5.90)
[2024-11-02 19:36] LABS: Red Cell Distribution Width 21.8 % (11.8-14.3)
[2024-11-02 19:40] LABS: Hemoglobin 4.3 g/dL (13.5-17.5)
[2024-11-02 19:44] LABS: INR 1.22 (0.9-1.15); Prothrombin Time 12.7 sec (9.3-11.8)
[2024-11-02 19:52] LABS: Alanine Aminotransferase 29 U/L (7-40); Alkaline Phosphatase 113 U/L (46-116); Anion Gap 12 (5-15); BUN/Creatinine Ratio 45.6 (10.0-20.0); Bilirubin, Total 0.7 mg/dL (0.2-1.0); Calcium 8.7 mg/dL (8.7-10.4); Magnesium 2.1 mg/dL (1.6-2.6); Potassium 3.9 mmol/L (3.5-5.1); Sodium 140 mmol/L (136-145)
--- NOTE | 2024-11-02 19:53 | DVH ---
Date: 11/02/2024 07:33 PM Examination: XY KUB ABDOMEN SINGLE VIEW History: Upright KUB rule out free air Comparison: None TECHNIQUE: Frontal views of the abdomen was obtained. FINDINGS: Bowel gas pattern is unremarkable. The lung bases are unremarkable. No acute osseous abnormality identified. IMPRESSION: 1. Nonobstructive bowel gas pattern.
[2024-11-02 19:55] LABS: Aspartate Aminotransferase 63 U/L (13-40); Blood Urea Nitrogen 36 mg/dL (9-23); Carbon Dioxide 17 mmol/L (20-31); Chloride 111 mmol/L (98-107); Glucose 114 mg/dL (74-106); Total Protein 5.5 g/dL (5.7-8.2)
[2024-11-02] MEDS: MORPHINE SULFATE INJ 2 MG/ml SYRG IV ONE ×2 (19:55→21:15)
[2024-11-02] MEDS: ONDANSETRON HCL 4 MG/2 ML VIAL IV ONE (19:55)
[2024-11-02 20:06] LABS: Blood Alcohol 3.8 mg/dL (<10); CRP High Sensitivity 0.02 mg/dL (<1.0)
[2024-11-02] MEDS: PANTOPRAZOLE 40 MG/10 ML VIAL INJ IV ONE (20:38)
[2024-11-02] MEDS: IOHEXOL 300 MG/ML 100ML BOTTLE IJ ONE (21:02)
--- NOTE | 2024-11-02 21:35 | DVH ---
Exam: CT CT AB PEL WITH IV CON ONLY History: Upper GI Bleed Comparison Study: None available at time of dictation. TECHNIQUE: Multidetector CT of the abdomen and pelvis with contrast. Axial, coronal and sagittal mult iplanar reformats were obtained from the axial data set by the technologist. Radiation Dose Information: CT Dose: CTDI volume is 17.15 mGy. Dose-length product is 1048.8 mGy*cm FINDINGS: Bilateral dependent atelectasis. Partially visualized heart is unremarkable. There is micronodular contour of the liver with recanalization of the umbilical vein gastroesophageal , and abdomen varices consistent with liver cirrhosis and associated portal hypertension. Mild splen omegaly. No focal hepatic or splenic lesions. Cholelithiasis with mild nonspecific gallbladder wall thickening. Pancreas and adrenal glands unremar kable. Multiple bilateral renal nonobstructing calculi. Subcentimeter hypodense right renal lesions that ar e too small to characterize.. No hydronephrosis bilaterally. Punctate calcification adjacent to the r ight distal ureter. No obstructing ureteral calculus is noted. Urinary bladder is unremarkable. Prost ate is normal in size with focus of calcification. Hypodense focus with streak artifact is noted over the gastroesophageal junction. Mild gastric wall t hickening. Mild wall thickening of proximal small bowel loops. The remainder of the small bowel loops unremarkable. Appendix is unremarkable. Small to moderate amount of fecal material within the colon. Descending colon and sigmoid diverticulosis without diverticulitis. Mild rectal wall thickening. No evidence of intraperitoneal free air. No intraperitoneal free fluid. Mild mesenteric edema. No evidence of aortic aneurysm. Mild atherosclerotic calcification of the aorta and bilateral iliacs . Shotty mesenteric lymph nodes. Bilateral prominent inguinal lymph nodes measuring up to 1.1 cm which may be reactive. Small fat cont aining left inguinal hernia. The soft tissues are unremarkable. Multilevel endplate irregularity mul tilevel moderate degenerative changes of the thoracic and lumbar spine. IMPRESSION: Cirrhotic appearing liver with associated varices. Cholelithiasis with nonspecific gallbladder wall t hickening. Mild wall thickening of the stomach and proximal small bowel loops which may be due to portal hyperte nsive gastro enteropathy with gastroenteritis not excluded. Mild rectal wall thickening which may be due to inadequate distention with neoplasm not excluded. Col onic diverticulosis without diverticulitis. Bilateral renal nonobstructing calculi. Mild mesenteric edema which may be from the liver cirrhosis.
[2024-11-02] MEDS ORDERED: DOCUSATE SOD 100 MG CAP PO PRN (21:45)
[2024-11-02] MEDS ORDERED: ONDANSETRON HCL 4 MG/2 ML VIAL IV PRN (21:45)
[2024-11-02 22:00] VITALS: PULSE 96; RESP 19; O2SAT 99
[2024-11-02] MEDS: SODIUM CHLOR 0.9% PF (SALINE LOCK) 10ML VIAL/SYR IV SCH (22:00)
[2024-11-02 22:15] VITALS: BP 97/54; PULSE 98; RESP 25; TEMP 98.5
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
[2024-11-02 22:30] VITALS: BP 103/44; PULSE 101; RESP 11; TEMP 98.3
[2024-11-02] MEDS ORDERED: NITROGLYCERIN 0.4 MG SL TAB SL PRN (22:30)
[2024-11-02 22:44] VITALS: BP 122/59; PULSE 103; RESP 19; TEMP 98.3
[2024-11-02 23:04] LABS: Urine Bacteria None Seen /hpf (None Seen); Urine WBC None Seen /hpf (0 - 3)
[2024-11-02] MEDS: ACETAMINOPHEN 325 MG TAB PO PRN (23:04)
[2024-11-02] MEDS: HYDROcodone-ACET 5/325MG TAB PO PRN (23:04)
[2024-11-02 23:12] LABS: Urine Blood Negative /uL (Negative); Urine Clarity Clear (Clear); Urine Color Light-Yellow (Yellow); Urine Protein, UAD Negative (Negative); Urine Specific Gravity 1.025 (1.001-1.035); Urine Urobilinogen Normal (Negative); Urine pH 5.5 (5.0-9.0)
[2024-11-02 23:23] LABS: Amphetamine Screen, Urine Neg (NEGATIVE); Barbiturate Scree,Urine Neg (NEGATIVE); Benzodiazephine Screen, Urine Neg (NEGATIVE); Cannabinoid Screen, Urine Pos (NEGATIVE); Cocaine Screen, Urine Neg (NEGATIVE); Opiate Scree,Urine Neg (NEGATIVE); Phencyclidine Screen, Urine Neg (NEGATIVE)
[2024-11-03] VITALS (17 sets, daily range): BP systolic 99–150; BP diastolic 57–75; PULSE 70–97; RESP 13–19; TEMP 97.6–98.3; O2SAT 96–99
[2024-11-03] MEDS: MORPHINE SULFATE INJ 2 MG/ml SYRG IV PRN ×2 (02:46→10:47)
[2024-11-03 07:29] LABS: Basophils # (auto) 0 10 ^3/uL (0-0.2); Eosinophils # (auto) 0.1 10 ^3/uL (0-0.8); Lymphocytes # (auto) 1.4 10 ^3/uL (0.4-5.4); Monocytes # (auto) 0.4 10 ^3/uL (0-1.3); Neutrophils # (auto) 2.5 10 ^3/uL (1.6-8.6); White Blood Cell 4.4 10^3/uL (4.4-10.8)
[2024-11-03 07:32] LABS: Basophils % (auto) 0.8 % (0.0-2.0); Eosinophils % (auto) 1.2 % (0.0-7.0); Hematocrit 17.2 % (41.0-53.0); Lymphocytes % (auto) 32.1 % (10.0-50.0); Mean Corpuscular Hemoglobin 24.2 pg (28.0-32.0); Mean Corpuscular Hgb Conc. 30.8 g/dL (32.0-36.0); Mean Corpuscular Volume 78.6 fL (80.0-100.0); Monocytes % (auto) 9.6 % (0.0-12.0); Neutrophils % (auto) 56.3 % (37.0-80.0); Nucleated Red Blood Cells % 0.2 %; Platelet Count (auto) 70 10^3/uL (140-450); Red Blood Cells 2.19 10^6/uL (4.5-5.90)
[2024-11-03 07:35] LABS: Alanine Aminotransferase 29 U/L (7-40); Alkaline Phosphatase 89 U/L (46-116); Anion Gap 9 (5-15); BUN/Creatinine Ratio 35.2 (10.0-20.0); Glucose 103 mg/dL (74-106); Potassium 4.4 mmol/L (3.5-5.1); Sodium 141 mmol/L (136-145)
[2024-11-03 07:36] LABS: Bilirubin, Total 0.7 mg/dL (0.2-1.0)
[2024-11-03 07:48] LABS: Albumin 2.7 g/dL (3.2-4.8); Aspartate Aminotransferase 63 U/L (13-40); Blood Urea Nitrogen 32 mg/dL (9-23); Calcium 8.1 mg/dL (8.7-10.4); Carbon Dioxide 18 mmol/L (20-31); Chloride 114 mmol/L (98-107); Red Cell Distribution Width 20.2 % (11.8-14.3); Total Protein 5.2 g/dL (5.7-8.2)
[2024-11-03 07:51] LABS: Hemoglobin 5.3 g/dL (13.5-17.5)
[2024-11-03 08:49] LABS: Magnesium 2.1 mg/dL (1.6-2.6)
[2024-11-03 08:51] LABS: Phosphorus 3.6 mg/dL (2.4-5.1)
[2024-11-03 08:58] LABS: INR 1.28 (0.9-1.15); Partial Thromboplastin Time 32.2 SEC (24.5-34.5); Prothrombin Time 13.3 sec (9.3-11.8)
[2024-11-03] MEDS: SODIUM CHLORIDE 0.9% 1,000 ML IV SCH (09:02)
[2024-11-03] MEDS: cefTRIAXone 1GM/50ML D5W 50 ML IV SCH (09:02)
[2024-11-03 09:04] LABS: Thyroid Stimulating Hormone 0.8 uIU/mL (0.55-4.78)
[2024-11-03 09:07] LABS: % Iron Saturation 4.1 % (20-55)
[2024-11-03 09:39] LABS: Hematocrit 17.3 % (41.0-53.0)
[2024-11-03 09:44] LABS: Hemoglobin 5.5 g/dL (13.5-17.5)
[2024-11-03] MEDS: PANTOPRAZOLE 40mg/50ML NS AE 50 ML IV SCH (10:46)
[2024-11-03 10:59] LABS: Ferritin 9.7 ng/mL (22-322); Folate (Folic Acid) 18.37 ng/mL (>5.38)
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
[2024-11-03] MEDS: FOLIC ACID 1 MG, MULTIPLE VITAMIN 10 ML, MAGNESIUM SULF SDV 50% 8 MEQ, THIAMINE INJ 100... INJ SCH (15:35)
[2024-11-03] MEDS: SUCRALFATE 1 GM/10 ML ORAL SUSP PO SCH (17:37)
[2024-11-03] MEDS: diphenhdrAMINE-ZINC ACETATE 1 APPLIC APPL TOP PRN (17:37)
[2024-11-03 19:39] LABS: Hematocrit 19.6 % (41.0-53.0)
[2024-11-03 19:45] LABS: Hemoglobin 5.9 g/dL (13.5-17.5)
[2024-11-04] VITALS (9 sets, daily range): BP systolic 115–130; BP diastolic 63–76; PULSE 71–79; RESP 16–18; TEMP 95.5–98.1; O2SAT 97
[2024-11-04 06:46] LABS: Basophils # (auto) 0 10 ^3/uL (0-0.2); Eosinophils # (auto) 0 10 ^3/uL (0-0.8); Eosinophils % (auto) 1.5 % (0.0-7.0); Lymphocytes # (auto) 0.9 10 ^3/uL (0.4-5.4); Monocytes # (auto) 0.3 10 ^3/uL (0-1.3)
[2024-11-04 06:49] LABS: Basophils % (auto) 0.6 % (0.0-2.0); Hematocrit 21.4 % (41.0-53.0); Lymphocytes % (auto) 26.9 % (10.0-50.0); Mean Corpuscular Hemoglobin 25.9 pg (28.0-32.0); Mean Corpuscular Hgb Conc. 32.3 g/dL (32.0-36.0); Mean Corpuscular Volume 80.3 fL (80.0-100.0); Monocytes % (auto) 8.7 % (0.0-12.0); Neutrophils % (auto) 62.3 % (37.0-80.0); Platelet Count (auto) 59 10^3/uL (140-450); Red Blood Cells 2.66 10^6/uL (4.5-5.90); Red Cell Distribution Width 19.6 % (11.8-14.3); White Blood Cell 3.2 10^3/uL (4.4-10.8)
[2024-11-04 06:51] LABS: Hemoglobin 6.9 g/dL (13.5-17.5)
[2024-11-04 07:14] LABS: Alanine Aminotransferase 29 U/L (7-40); Alkaline Phosphatase 84 U/L (46-116); Anion Gap 10 (5-15); BUN/Creatinine Ratio 25.5 (10.0-20.0); Bilirubin, Total 0.8 mg/dL (0.2-1.0); Glucose 86 mg/dL (74-106); Potassium 4.3 mmol/L (3.5-5.1); Sodium 139 mmol/L (136-145)
[2024-11-04 07:22] LABS: Albumin 2.8 g/dL (3.2-4.8); Aspartate Aminotransferase 66 U/L (13-40); Blood Urea Nitrogen 26 mg/dL (9-23); Calcium 8.1 mg/dL (8.7-10.4); Carbon Dioxide 18 mmol/L (20-31); Chloride 111 mmol/L (98-107); Total Protein 5.6 g/dL (5.7-8.2)
[2024-11-04] MEDS ORDERED: MORPHINE SULFATE INJ 2 MG/ml SYRG IV PRN (10:00)
[2024-11-04] MEDS: PANTOPRAZOLE 40 MG/10 ML VIAL INJ IV SCH (11:47)
[2024-11-04] MEDS ORDERED: HYDROcodone-ACET 10/325MG TAB PO PRN (12:00)
[2024-11-04] MEDS ORDERED: IRON SUCROSE COMPLEX 110 ML IV SCH (12:00)
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
--- NOTE | 2024-11-06 10:00 | DVHSR ---
APPROVED REPORT EXAM: Two-dimensional and M-mode echocardiogram with Doppler and color Doppler. Blood Pressure: 127/70 mmHg INDICATION Heart Failure RISK FACTORS Height: 5'10", Weight: 184 DIMENSIONS LVDd4.8 (3.8-5.7cm)LA (2D)4.9 (1.9-4.0cm)Aortic Root3.7 (2.0-3.7cm) LVDs3.1 (2.5-4.0cm)LA (MM) (1.9-4.0cm)Aortic Cusp Exc2.2 (1.5-2.0cm) EF (%) 66.0 (55-70%)Rt. Atrium5.2 (1.9-4.0cm)Asc. Aorta3.9 cm IVSd1.3 (0.7-1.1cm)RV (D)5.0 (1.8-2.4cm) PWd0.8 (0.7-1.1cm) Mitral Valve MitralMitral Stenosis E wave0.66m/sMV Mean GR.mmHg A wave0.60m/sMV Peak GR.mmHg E/A ratio1.12D MVAcm2 DECEL [id number] 1/2 Timems Aortic Valve Aortic ValveAortic Stenosis V11.48m/Reza Mean GR.6mmHg V21.65m/Reza Peak GR.11mmHg LVOT Diameter2.4 (1.8-2.4cm)Doppler AVA4.06cm2 Pulmonic Valve V20.90m/s Tricuspid Valve TR Velocity2.45m/s [id number] Other Information Quality : Technically LimitedRhythm : Technically limited study due to body habitus. Conclusion Normal left ventricular size and dimension. Normal left ventricular systolic estimated ejection frac tion is 60%. There is a grade 2 diastolic dysfunction. Normal right ventricular size and dimension. Normal right ventricular systolic function. Slightly i ncreased right ventricular systolic pressure 27 mm of mercury Moderately dilated right and atria. Normal aortic valve structure and function. Normal mitral valve structure and function. There is mild tricuspid valve regurgitation. The pulmonary valve is grossly normal. No pericardial effusion.
== END 2024-11-04 11:54 | disposition left against medical advice (07) | DRG 241 ==
LOC: EDBD 18:34 → EDUNIT# 18:34 → ER 18:34 → TELE 22:22 → TELE-WESTW 11-03 01:47
PROVIDERS: ADMIT Internal Medicine Geriatric Medicine; ATTEND Internal Medicine Geriatric Medicine
PROC: 30233N1 Transfusion of Nonautologous Red Blood Cells into Peripheral Vein, Percutaneous Approach (ICD-10-PCS; principal; 2024-11-04)
PROC: 30233K1 Transfusion of Nonautologous Frozen Plasma into Peripheral Vein, Percutaneous Approach (ICD-10-PCS; 2024-11-04)
DX: K29.70 Gastritis, unspecified, without bleeding (principal); K76.6 Portal hypertension; I27.20 Pulmonary hypertension, unspecified; K57.31 Diverticulosis of large intestine without perforation or abscess with bleeding; D70.9 Neutropenia, unspecified; K31.89 Other diseases of stomach and duodenum; D69.59 Other secondary thrombocytopenia; K70.30 Alcoholic cirrhosis of liver without ascites; D64.9 Anemia, unspecified; F10.20 Alcohol dependence, uncomplicated; K80.20 Calculus of gallbladder without cholecystitis without obstruction; I50.9 Heart failure, unspecified; K44.9 Diaphragmatic hernia without obstruction or gangrene; D73.1 Hypersplenism; I11.0 Hypertensive heart disease with heart failure; Z53.29 Procedure and treatment not carried out because of patient's decision for other reasons; Z79.899 Other long term (current) drug therapy
CPT/HCPCS: 36415; 74018; 74177; 80053; 80061; 80307; 80320; 81001; 82140; 82306; 82607; 82728; 82746; 83010; 83036; 83540; 83550; 83605; 83615; 83735; 84100; 84443; 84484; 85014; 85018; 85025; 85045; 85610; 85730; 86141; 86850; 86900; 86901; 86920; 87040; 87077; 87186; 93005; 93306; G0378; J2405; J2470

== ENCOUNTER 2024-11-29 13:04 | Inpatient (IN) | payer MEDICAID ==
[~2024-11-29] VITALS: Ht 177.8 cm; Wt 85.0 kg
[2024-11-29] VITALS (9 sets, daily range): BP systolic 80–106; BP diastolic 41–66; PULSE 90–102; RESP 13–21; TEMP 97.1–98.3; O2SAT 98
--- NOTE | 2024-11-29 13:46 | ED.PDOC ---
GI ASSESSMENT Chief Complaint: GI Bleed Comments pt has a history of alcoholic cirrhosis with esophageal varices. he had several 12 packs yesterday and today vomited blood once. Time Seen by MD: 13:28 Primary Care Provider: NONE Allergies: Coded Allergies: NO KNOWN ALLERGIES (Unverified , 11/03/22) Home Meds Active Scripts Ibuprofen (Ibuprofen) 800 Mg Tab, 1 TAB PO TID, #20 TAB Prov:SWAPNA ROMANO 08/21/23 Colchicine (Colchicine) 0.6 Mg Cap, 0.6 MG PO BID, #20 CAP Prov:SWAPNA ROMANO 08/21/23 Indomethacin (Indomethacin) 50 Mg Cap, 1 CAP PO TID, #30 CAP Prov:SWAPNA ROMANO 08/21/23 Pantoprazole Sodium Sesquihydr (Pantoprazole Sodium) 40 Mg Tab, 40 MG PO DAILY for 30 Days, #30 TAB Prov:LEROY DE LA ROSA MD 11/08/22 Ferrous Sulfate (FERROUS SULFATE) 325 Mg Tb, 1 TAB PO DAILY, #30 TAB 3 Refills Prov:LEROY DE LA ROSA MD 11/08/22 Thiamine Hcl (VITAMIN B-1) 100 Mg Tb, 100 MG PO DAILY for 30 Days, #30 TAB Prov:LEROY DE LA ROSA MD 11/08/22 Reported Medications Naproxen (NAPROSYN TABLET) 500 Mg Tb 06/25/24 Furosemide (Furosemide) 40 Mg Tab 06/25/24 Hydroxyzine HCl (Hydroxyzine Hydrochloride) 50 Mg Tab, 50 MG PO, TAB 11/04/22 Gabapentin (Gabapentin) 600 Mg Tab, 800 MG PO for 30 Days, MG 11/04/22 Furosemide (Furosemide) 20 Mg Tab, 25 MG PO BIDD for 30 Days, MG 11/04/22 Hydrocodone-Acetaminophen (Hydrocodone Bitartrate/AC 10-325 mg) 1 Tab Tab, 1 TAB PO, TAB 11/04/22 Information Source: Patient, Emergency Med Personnel Mode of Arrival: EMS Timing: Hours Duration: Intermittent Quality: Cramping Vomitus: None Severity: Moderate Recent: Ingestion of ETOH Past Medical History PAST MEDICAL HISTORY: Anemia, CHF, Liver Past Medical History (Other): esophageal varices, ugib, alcohlism Surgical History: Denies all surgeries Family History Family History: Reviewed,noncontributory to illness Social History Smoker: Non-Smoker Alcohol: Heavy Drugs: Denies Drug Use Lives In: Home Constitutional: denies: chills, diaphoresis, fatigue, fever, malaise, sweats, weakness, others EENTM: denies: blurred vision, double vision, ear bleeding, ear discharge, ear drainage, ear pain, ear ringing, eye pain, eye redness, hearing loss, mouth pain, mouth swelling, nasal discharge, nose bleeding, nose congestion, nose xander n, photophobia, tearing, throat pain, throat swelling, voice changes, others Respiratory: denies: cough, hemoptysis, orthopnea, SOB at rest, shortness of breath, SOB with excertion, stridor, wheezing, others Cardiovascular: denies: chest pain, dizzy spells, diaphoresis, Dyspnea on exertion, edema, irregular heart beat, left arm pain, lightheadedness, palpitations, PND, syncope, others Gastrointestinal: reports: abdominal pain, hematemesis; denies: abdomen distended, blood streaked bowels, constipated, diarrhea, dysphagia, difficulty swallowing, melena, nausea, poor appetite, poor fluid intake, rectal bleeding, rectal pain, vomiting, others Neurological: denies: dizziness, fainting, headache, left sided numbness, left sided weakness, numbness, paresthesia, pre-existing deficit, right sided numbness, right sided weakness, seizure, speech problems, tingling, tremors, weakness, others Musculoskeletal: denies: back pain, gout, joint pain, joint swelling, muscle pain, muscle stiffness, neck pain, others Integumetry: denies: bruises, change in color, change in hair/nails, dryness, laceration, lesions, lumps, rash, wounds, others Allergic/Immunocompromised: denies: Difficulty Healing, Frequent Infections, Hives, Itching, others Hematologic/Lymphatic: denies: anemia, blood clots, easy bleeding, easy bruisi ng, swollen glands, others Endocrine: denies: excessive hunger, excessive sweating, excessive thirst, exce ssive urination, flushing, intolerance to cold, intolerance to heat, unexplained weight gain, unexplained weight loss, others Psychiatric: denies: anxiety, bipolar disorder, depression, hopeless, panic disorder, schizophrenia, sleepless, suicidal, others All Other Systems: Reviewed and Negative Physical Exam General Appearance: No Apparent Distress, Normal HEENT: Normal ENT Inspection, Pharynx Normal, TMs Normal Neck: Full Range of Motion, Non-Tender, Normal, Normal Inspection Respiratory: Chest Non-Tender, Lungs Clear, No Accessory Muscle Use, No Respiratory Distress, Normal Breath Sounds Cardiovascular: No Edema, No JVD, No Murmur, No Gallop, Normal Peripheral Pulses, Regular Rate/Rhythm Breast Exam: Deferred Gastrointestinal: No Organomegaly, Non Tender, No Pulsatile Mass, Normal Bowel Sounds, Soft Genitalia: Deferred Pelvic: Deferred Rectal: Deferred Extremities: No calf tenderness, Normal capillary refill, Normal inspection, Normal range of motion, Non-tender, No pedal edema Musculoskeletal : Apperance: Normal Neurologic: Alert, med care manager II-XII nml as Tested, No Motor Deficits, Normal Affect, Normal Mood, No Sensory Deficits Cerebellar Function: Normal Reflexes: Normal Skin: Dry, Normal Color, Warm Lymphatic: No Adenopathy Was a procedure done? Was a procedure done?: No GI differential Dx Differential Diagnosis: Bowel Obstruction, Gastritis/PUD, Gastroenteritis, GI hemorrhage, Electrolyte Imbalance, Food Poisoning, Hypovolemia, Anemia, Esophageal Varicies, Stress Ulcer X-Ray, Labs, Meds, VS Vital Signs Date Time Temp Pulse Resp B/P (MAP) Pulse Ox O2 Delivery O2 Flow Rate FiO2 11/29/24 13:40 97.7 103 18 92/63 (73) 99 Lab Test 11/29/24 13:59 Range/Units White Blood Count 11.6 H 4.4-10.8 10^3/uL Red Blood Count 2.57 L 4.5-5.90 10^6/uL Hemoglobin 6.0 *L 13.5-17.5 g/dL Hematocrit 19.4 L 41.0-53.0 % Mean Corpuscular Volume 75.4 L 80.0-100.0 fL Mean Corpuscular Hemoglobin 23.2 L 28.0-32.0 pg Mean Corpuscular Hemoglobin Concent 30.7 L 32.0-36.0 g/dL Red Cell Distribution Width 22.1 H 11.8-14.3 % Platelet Count 162 140-450 10^3/uL Mean Platelet Volume 7.9 6.9-10.8 fL Neutrophils (%) (Auto) 73.2 37.0-80.0 % Lymphocytes (%) (Auto) 13.1 10.0-50.0 % Monocytes (%) (Auto) 13.4 H 0.0-12.0 % Eosinophils (%) (Auto) 0.1 0.0-7.0 % Basophils (%) (Auto) 0.2 0.0-2.0 % Neutrophils # (Auto) 8.5 1.6-8.6 10 ^3/uL Lymphocytes # (Auto) 1.5 0.4-5.4 10 ^3/uL Monocytes # (Auto) 1.6 H 0-1.3 10 ^3/uL Eosinophils # (Auto) 0 0-0.8 10 ^3/uL Basophils # (Auto) 0 0-0.2 10 ^3/uL Nucleated Red Blood Cells 0.0 % Prothrombin Time 13.7 H 9.3-11.8 sec Prothrombin Time INR 1.32 H 0.9-1.15 Activated Partial Thromboplast Time 30.7 24.5-34.5 SEC Sodium Level 139 136-145 mmol/L Potassium Level 4.4 3.5-5.1 mmol/L Chloride Level 105 98-107 mmol/L Carbon Dioxide Level 25 20-31 mmol/L Anion Gap 9 5-15 Blood Urea Nitrogen 39 H 9-23 mg/dL Creatinine 0.88 0.700-1.30 mg/dL Glomerular Filtration Rate Calc 97 >90 mL/min BUN/Creatinine Ratio 44.3 H 10.0-20.0 Serum Glucose 106 74-106 mg/dL Calcium Level 8.2 L 8.7-10.4 mg/dL Total Bilirubin 1.1 H 0.2-1.0 mg/dL Aspartate Amino Transferase (AST) 72 H 13-40 U/L Alanine Aminotransferase (ALT) 23 7-40 U/L Alkaline Phosphatase 105 46-116 U/L Total Protein 6.0 5.7-8.2 g/dL Albumin 2.7 L 3.2-4.8 g/dL Plasma/Serum Blood Alcohol 4.3 <10 mg/dL Current Medications Medications (Trade) Dose Ordered Sig/Jesika Route Start Time Stop Time Status Last Admin Pantoprazole Sodium 80 mg/ Sodium Chloride 120 ml @ 240 mls/hr ONCE ONCE IV 11/29/24 13:45 11/29/24 14:14 DC 11/29/24 16:03 Ondansetron HCl (Zofran) 4 mg ONCE ONCE IV 11/29/24 13:45 11/29/24 13:46 DC 11/29/24 14:33 Octreotide Acetate 100 mcg/ Sodium Chloride 51 ml @ 204 mls/hr ONCE ONCE IV 11/29/24 13:45 11/29/24 13:59 DC 11/29/24 14:41 Octreotide Acetate 500 mcg/ Sodium Chloride 100 ml @ 10 mls/hr Q10H IV 11/29/24 13:45 11/29/24 14:49 Time of 1ST Reevaluation: 16:04 Reevaluation 1ST: Improved Patient Education/Counseling: Diagnosis, Treatment, Prognosis, Need For Follow Up Family Education/Counseling: No Family Present Departure 1 Departure Time of Disposition: 16:05 Impression: Primary Impression: UGIB (upper gastrointestinal bleed) Additional Impressions: Alcoholic Anemia Disposition: ADMITTED INPATIENT Admit to: ICU Condition: Critical Critical Care Note Critical Care Time?: Yes (55 min-critical care time only) Critical care comment: Due to concerns for patients condition deteriorating, the care required my highest level of attention and readiness to intervene. I assessed the patient, reviewed the medical records, ordered the appropriate tests and treatments, then reassessed for results and responsiveness. I communicated with medical personnel and consultants and formulated a plan of care. Total critical care time excludes any procedures Stability Stability form required: DOV Allen MD Nov 29, 2024 13:46
[2024-11-29 14:23] LABS: Eosinophils # (auto) 0 10 ^3/uL (0-0.8); Eosinophils % (auto) 0.1 % (0.0-7.0)
[2024-11-29 14:24] LABS: Basophils # (auto) 0 10 ^3/uL (0-0.2); Basophils % (auto) 0.2 % (0.0-2.0); Hematocrit 19.4 % (41.0-53.0); Lymphocytes # (auto) 1.5 10 ^3/uL (0.4-5.4); Lymphocytes % (auto) 13.1 % (10.0-50.0); Mean Corpuscular Hemoglobin 23.2 pg (28.0-32.0); Mean Corpuscular Hgb Conc. 30.7 g/dL (32.0-36.0); Mean Corpuscular Volume 75.4 fL (80.0-100.0); Monocytes # (auto) 1.6 10 ^3/uL (0-1.3); Monocytes % (auto) 13.4 % (0.0-12.0); Neutrophils # (auto) 8.5 10 ^3/uL (1.6-8.6); Neutrophils % (auto) 73.2 % (37.0-80.0); Platelet Count (auto) 162 10^3/uL (140-450); Red Blood Cells 2.57 10^6/uL (4.5-5.90); White Blood Cell 11.6 10^3/uL (4.4-10.8)
[2024-11-29 14:26] LABS: Red Cell Distribution Width 22.1 % (11.8-14.3)
[2024-11-29] MEDS: ONDANSETRON HCL 4 MG/2 ML VIAL IV ONE (14:33)
[2024-11-29] MEDS: OCTREOTIDE ACETATE 100 MCG in SODIUM CHL 0.9% 50 ML IV ONE (14:41)
[2024-11-29 14:45] LABS: INR 1.32 (0.9-1.15); Partial Thromboplastin Time 30.7 SEC (24.5-34.5); Prothrombin Time 13.7 sec (9.3-11.8)
[2024-11-29] MEDS: OCTREOTIDE ACETATE 500 MCG in SODIUM CHL 0.9% 99 ML IV SCH (14:49)
[2024-11-29 14:55] LABS: Alanine Aminotransferase 23 U/L (7-40); Alkaline Phosphatase 105 U/L (46-116); Anion Gap 9 (5-15); BUN/Creatinine Ratio 44.3 (10.0-20.0); Carbon Dioxide 25 mmol/L (20-31); Chloride 105 mmol/L (98-107); Potassium 4.4 mmol/L (3.5-5.1); Sodium 139 mmol/L (136-145)
[2024-11-29 14:56] LABS: Bilirubin, Total 1.1 mg/dL (0.2-1.0)
[2024-11-29 15:07] LABS: Albumin 2.7 g/dL (3.2-4.8); Aspartate Aminotransferase 72 U/L (13-40); Blood Urea Nitrogen 39 mg/dL (9-23); Calcium 8.2 mg/dL (8.7-10.4); Glucose 106 mg/dL (74-106)
[2024-11-29] MEDS: PANTOPRAZOLE 80 MG in SODIUM CHL 0.9% 100 ML IV ONE (16:03)
[2024-11-29] MEDS: METOCLOPRAMIDE HCL 5MG/ml INJ 2ml VIAL IV ONE (16:10)
[2024-11-29] MEDS: METOCLOPRAMIDE HCL 5MG/ml INJ 2ml VIAL ONE (16:31)
[2024-11-29] MEDS: PANTOPRAZOLE 40mg/50ML NS AE 50 ML IV ONE (16:52)
[2024-11-29] MEDS: PANTOPRAZOLE 40mg/50ML NS AE 50 ML IV SCH (20:42)
[2024-11-29 21:17] LABS: Urine Bacteria FEW /hpf (None Seen); Urine Blood Negative /uL (Negative); Urine Clarity Clear (Clear); Urine Color Light-Yellow (Yellow); Urine Protein, UAD TRACE (Negative); Urine Specific Gravity 1.015 (1.001-1.035); Urine Squamous Epithelial Cell None Seen /hpf (<5); Urine Urobilinogen Normal (Negative); Urine WBC <1 /hpf (0 - 3); Urine pH 5.5 (5.0-9.0)
--- NOTE | 2024-11-29 21:28 | DVHHP2 ---
History of Present Illness Reason for Visit: GI bleed History of Present Illness 64-year-old male presents for evaluation of GI bleed. Patient with history of liver cirrhosis secondary to alcohol abuse presents with a one day history of noticing dark-colored stool and vomiting dark coffee-ground emesis. She reports binge drinking over the past three days. Denies chest pain or shortness for breath. Reports mild dizziness. States having diffuse abdominal pain. No other acute complaints reported. Past Medical History Liver disease, congestive heart failure, anemia, esophageal varices Past Surgical History Denies Family History Noncontributory Smoke: No ALCOHOL: heavy Drugs: None Lives: with Family Review of Systems Review of Systems Review of systems are currently negative otherwise addressed in HPI. Allergies: Coded Allergies: NO KNOWN ALLERGIES (Unverified , 11/03/22) Medications Current Medications Medications Dose Ordered Sig/Jesika Route Start Time Stop Time Status Last Admin Dose Admin Octreotide Acetate 500 mcg/ Sodium Chloride 100 ml @ 10 mls/hr Q10H IV 11/29/24 13:45 11/29/24 14:49 10 MLS/HR Pantoprazole Sodium 50 ml @ 10 mls/hr Q5H IV 11/29/24 20:00 11/29/24 20:42 10 MLS/HR Ondansetron HCl 4 mg Q4HP PRN IV 11/29/24 20:00 Exam Vital Signs Vital Signs Date Time Temp Pulse Resp B/P (MAP) Pulse Ox O2 Delivery O2 Flow Rate FiO2 11/29/24 20:15 98.0 97 13 106/65 98.0 11/29/24 20:15 100 11/29/24 19:25 Room Air* 0 21 Exam Gen: 64-year-old male in mild distress Skin: Warm, dry, normal color and texture, no rash. HEENT: Normocephalic atraumatic, mucous membranes moist and pink. Neck: Cervical and supraclavicular nodes normal without enlargement, trachea is midline, thyroid gland is normal without masses. Pulmonary: Clear to auscultation and percussion bilaterally. Cardiac: Regular rate and rhythm. No murmur Abdomen: Soft, diffuse tenderness, nondistended, bowel sounds present all 4 quadrants, no guarding, no rigidity, no organomegaly. Extremities: No cyanosis, clubbing, no edema Neuro: Cranial nerves II through XII grossly intact, normal affect and speech, no focal motor deficits. Labs/Xrays Labs Test 11/29/24 20:05 11/29/24 13:59 Range/Units Urine Color Light-yellow Yellow Urine Clarity Clear Clear Urine pH 5.5 5.0-9.0 Urine Specific [place] 1.015 1.001-1.035 Urine Protein Trace H Negative Urine Ketones 1+ H Negative Urine Blood Negative Negative /uL Urine Nitrite Negative Negative Urine Bilirubin Negative Negative Urine Urobilinogen Normal Negative mg/dL Urine Leukocyte Esterase Negative Negative /uL Urine RBC 2 0 - 3 /hpf Urine WBC <1 0 - 3 /hpf Urine Squamous Epithelial Cells None seen <5 /hpf Urine Bacteria Few H None Seen /hpf Urine Glucose Normal Normal mg/dL White Blood Count 11.6 H 4.4-10.8 10^3/uL Red Blood Count 2.57 L 4.5-5.90 10^6/uL Hemoglobin 6.0 *L 13.5-17.5 g/dL Hematocrit 19.4 L 41.0-53.0 % Mean Corpuscular Volume 75.4 L 80.0-100.0 fL Mean Corpuscular Hemoglobin 23.2 L 28.0-32.0 pg Mean Corpuscular Hemoglobin Concent 30.7 L 32.0-36.0 g/dL Red Cell Distribution Width 22.1 H 11.8-14.3 % Platelet Count 162 140-450 10^3/uL Mean Platelet Volume 7.9 6.9-10.8 fL Neutrophils (%) (Auto) 73.2 37.0-80.0 % Lymphocytes (%) (Auto) 13.1 10.0-50.0 % Monocytes (%) (Auto) 13.4 H 0.0-12.0 % Eosinophils (%) (Auto) 0.1 0.0-7.0 % Basophils (%) (Auto) 0.2 0.0-2.0 % Neutrophils # (Auto) 8.5 1.6-8.6 10 ^3/uL Lymphocytes # (Auto) 1.5 0.4-5.4 10 ^3/uL Monocytes # (Auto) 1.6 H 0-1.3 10 ^3/uL Eosinophils # (Auto) 0 0-0.8 10 ^3/uL Basophils # (Auto) 0 0-0.2 10 ^3/uL Nucleated Red Blood Cells 0.0 % Prothrombin Time 13.7 H 9.3-11.8 sec Prothrombin Time INR 1.32 H 0.9-1.15 Activated Partial Thromboplast Time 30.7 24.5-34.5 SEC Sodium Level 139 136-145 mmol/L Potassium Level 4.4 3.5-5.1 mmol/L Chloride Level 105 98-107 mmol/L Carbon Dioxide Level 25 20-31 mmol/L Anion Gap 9 5-15 Blood Urea Nitrogen 39 H 9-23 mg/dL Creatinine 0.88 0.700-1.30 mg/dL Glomerular Filtration Rate Calc 97 >90 mL/min BUN/Creatinine Ratio 44.3 H 10.0-20.0 Serum Glucose 106 74-106 mg/dL Calcium Level 8.2 L 8.7-10.4 mg/dL Total Bilirubin 1.1 H 0.2-1.0 mg/dL Aspartate Amino Transferase (AST) 72 H 13-40 U/L Alanine Aminotransferase (ALT) 23 7-40 U/L Alkaline Phosphatase 105 46-116 U/L Total Protein 6.0 5.7-8.2 g/dL Albumin 2.7 L 3.2-4.8 g/dL Plasma/Serum Blood Alcohol 4.3 <10 mg/dL Assessment/Plan Assessment/Plan Assessment Upper and lower GI bleed Liver cirrhosis Coagulopathy Symptomatic anemia Plan Admit the patient to [facility] [place] to the hospitalist Transfuse 2 units of packed red cells Continue Protonix/octreotide drip NPO GI consultation Continue treatment per orders. Plan discussed with: Patient My Orders Orders - NINA CERON AGACNP Procedure Category Date Status Time Pantoprazole PHA 11/29/24 In Process 40mg/50ml Ns Ae 20:00 * Gi [facility] Dental Equipment Mechanic CONS 11/29/24 Transmitted 19:50 Admit ADMIT 11/29/24 Transmitted 19:50 Ondansetron Hcl PHA 11/29/24 In Process (Zofran) 20:00 Complete Blood Count LAB 11/30/24 Verified 04:00 Comprehensive LAB 11/30/24 Verified Metabolic Panel 04:00 Npo (Nothing By DIET 11/30/24 Transmitted Mouth) Diet Breakfast Condition: Stable KATHI 11/29/24 In Process 19:50 Bedrest With Bathroom KATHI 11/29/24 In Process Privileg 19:50 Date of Service: Nov 29, 2024 Billing Provider: NINA CERON Common Visit Codes: [id number] INP/OBS CARE (HIGH) NINA CERON Nov 29, 2024 21:28
[2024-11-29] MEDS: ONDANSETRON HCL 4 MG/2 ML VIAL IV PRN (22:55)
[2024-11-29] MEDS: MORPHINE SULFATE INJ 2 MG/ml SYRG IV PRN (22:57)
[2024-11-30] VITALS (24 sets, daily range): BP systolic 104–156; BP diastolic 52–97; PULSE 68–93; RESP 10–22; TEMP 97–98.6; O2SAT 97–100
[2024-11-30] MEDS: OCTREOTIDE ACETATE 100 MCG/ML VL ONE (00:54)
[2024-11-30 05:23] LABS: Alanine Aminotransferase 29 U/L (7-40); Alkaline Phosphatase 75 U/L (46-116); Anion Gap 6 (5-15); BUN/Creatinine Ratio 53.1 (10.0-20.0); Carbon Dioxide 24 mmol/L (20-31); Potassium 3.9 mmol/L (3.5-5.1); Sodium 142 mmol/L (136-145)
[2024-11-30 05:28] LABS: Aspartate Aminotransferase 107 U/L (13-40); Blood Urea Nitrogen 52 mg/dL (9-23); Calcium 7.6 mg/dL (8.7-10.4); Chloride 112 mmol/L (98-107); Glucose 111 mg/dL (74-106)
[2024-11-30 05:29] LABS: Albumin 2.4 g/dL (3.2-4.8); Total Protein 5.1 g/dL (5.7-8.2)
[2024-11-30 05:49] LABS: Basophils # (auto) 0 10 ^3/uL (0-0.2); Eosinophils # (auto) 0 10 ^3/uL (0-0.8); Eosinophils % (auto) 0.5 % (0.0-7.0); Lymphocytes # (auto) 1.5 10 ^3/uL (0.4-5.4); Monocytes # (auto) 0.4 10 ^3/uL (0-1.3); Nucleated Red Blood Cells % 0.1 %; Platelet Count (auto) 65 10^3/uL (140-450)
[2024-11-30 05:51] LABS: Hematocrit 19.6 % (41.0-53.0); Lymphocytes % (auto) 37.5 % (10.0-50.0); Mean Corpuscular Hemoglobin 25.4 pg (28.0-32.0); Mean Corpuscular Volume 79.5 fL (80.0-100.0); Monocytes % (auto) 10.7 % (0.0-12.0); Neutrophils # (auto) 1.9 10 ^3/uL (1.6-8.6); Neutrophils % (auto) 50.3 % (37.0-80.0); Red Blood Cells 2.47 10^6/uL (4.5-5.90); White Blood Cell 3.9 10^3/uL (4.4-10.8)
[2024-11-30 05:54] LABS: Hemoglobin 6.3 g/dL (13.5-17.5)
[2024-11-30 08:36] LABS: Anisocytosis Moderate; Platelet Estimate Decreased
[2024-11-30] MEDS: LORazepam 2MG/ML-1ML VIAL IV ONE (09:39)
[2024-11-30] MEDS: SODIUM CHLORIDE 0.9% 1,000 ML IV SCH (10:20)
[2024-11-30] MEDS: THIAMINE 100mg/ml INJ (200mg/2ml VIAL) IV SCH (11:53)
--- NOTE | 2024-11-30 13:10 | DVHPN2 ---
Subjective Patient denies any hematemesis at this time. Reviewed: Care Plan, H&P, Labs, Medications, Previous Orders Changes from previous H/P or p: No Changes General: Per HPI Objective Vitals Vital Signs Date Time Temp Pulse Resp B/P (MAP) Pulse Ox O2 Delivery O2 Flow Rate FiO2 11/30/24 12:00 71 11/30/24 11:45 97.7 15 114/71 97.7 11/30/24 11:02 97 11/30/24 07:30 Room Air* 0 21 Intake/Output Intake and Output 11/30/24 07:00 Intake Total 1551 ml Output Total 500 ml Balance 1051 ml Intake Oral 0 ml IV Total 451 ml Tube Feeding 0 ml Blood Product 1100 ml Other 0 ml Output Urine Total 450 ml Stool Total 50 ml Urine/Stool Mix 0 ml Gastric Drainage Total 0 ml Emesis 0 ml Chest Tube Drainage Total 0 ml Drainage Total 0 ml Blood Draw 0 ml Other 0 ml # Voids 1 # Bowel Movements 1 General Appearance: Alert, Oriented X3, Cooperative HEENT: Atraumatic, PERRLA Lungs: Clear to auscultation, Normal air movement Cardiovascular: Normal S1, Normal S2 Abdomen: Normal bowel sounds, Soft, No tenderness, No hepatospenomegaly Musculoskeletal: Normal sensory function, Normal motor function Extremities: No clubbing, No cyanosis Psych/Mental Status: Mental status NL, Mood NL Medications Current Medications Medications Dose Ordered Sig/Jesika Route Start Time Stop Time Status Last Admin Dose Admin Octreotide Acetate 500 mcg/ Sodium Chloride 100 ml @ 10 mls/hr Q10H IV 11/29/24 13:45 11/30/24 08:02 10 MLS/HR Pantoprazole Sodium 50 ml @ 10 mls/hr Q5H IV 11/29/24 20:00 11/30/24 08:44 10 MLS/HR Ondansetron HCl 4 mg Q4HP PRN IV 11/29/24 20:00 11/30/24 10:46 4 MG Morphine Sulfate 2 mg Q6HPRN PRN IV 11/29/24 21:30 11/30/24 10:48 2 MG Sodium Chloride 1,000 ml @ 100 mls/hr Q10H IV 11/30/24 09:30 11/30/24 10:20 100 MLS/HR Thiamine HCl 100 mg DAILY IV 11/30/24 10:45 11/30/24 11:53 100 MG Laboratory Results Laboratory Tests 11/30/24 05:00 11/30/24 05:30 Chemistry Test 11/29/24 13:59 11/30/24 05:00 Albumin 2.7 g/dL (3.2-4.8) L 2.4 g/dL (3.2-4.8) L Calcium Level 8.2 mg/dL (8.7-10.4) L 7.6 mg/dL (8.7-10.4) L Total Protein 6.0 g/dL (5.7-8.2) 5.1 g/dL (5.7-8.2) L Coagulation Test 11/29/24 13:59 Prothrombin Time 13.7 sec (9.3-11.8) H Prothrombin Time INR 1.32 (0.9-1.15) H Activated Partial Thromboplast Time 30.7 SEC (24.5-34.5) LFT Test 11/29/24 13:59 11/30/24 05:00 Alanine Aminotransferase (ALT) 23 U/L (7-40) 29 U/L (7-40) Alkaline Phosphatase 105 U/L (46-116) 75 U/L (46-116) Aspartate Amino Transferase (AST) 72 U/L (13-40) H 107 U/L (13-40) H Total Bilirubin 1.1 mg/dL (0.2-1.0) H 1.0 mg/dL (0.2-1.0) Urinalysis Test 11/29/24 20:05 Urine Color Light-yellow (Yellow) Urine Clarity Clear (Clear) Urine pH 5.5 (5.0-9.0) Urine Specific [place] 1.015 (1.001-1.035) Urine Protein Trace (Negative) H Urine Ketones 1+ (Negative) H Urine Blood Negative /uL (Negative) Urine Nitrite Negative (Negative) Urine Bilirubin Negative (Negative) Urine Urobilinogen Normal mg/dL (Negative) Urine Leukocyte Esterase Negative /uL (Negative) Urine RBC 2 /hpf (0 - 3) Urine WBC <1 /hpf (0 - 3) Urine Squamous Epithelial Cells None seen /hpf (<5) Urine Bacteria Few /hpf (None Seen) H Urine Glucose Normal mg/dL (Normal) Labs and/or images reviewed: Labs reviewed by me, Image(s) reviewed by me Assessment/Plan Assessment/Plan Impression: -upper GI bleed, rule out bleeding esophageal varices -portal hypertension -cirrhosis -alcoholism -toxic metabolic encephalopathy -anemia secondary to GI bleed Plan: -start MVI, thiamine -continue with PRBC transfusion x4, 1 unit FFP -IV Lasix -pain management -GI consultation -serial H&H -plans for EGD in a.m. -continue octreotide and Protonix drip Critical care time spent with patient discussing and formulating plan of care: 40 minutes. This does not include time spent performing procedures. This medical document was created using an electronic medical record system with [employer] dictation system. Although this document has been carefully reviewed, there may still be some phonetic and typographical errors. These areas are purely typographical due to imperfections of the software programs, and do not reflect any compromise in the patient's medical care. Plan discussed with: Patient, Other (RN) My Orders Orders - ELROY GOETZ NP Procedure Category Date Status Time Frozen Plasma BBK 11/30/24 Logged 10:43 Thiamine Inj PHA 11/30/24 In Process 10:45 * Gi [facility] Electric Installer CONS 11/30/24 Transmitted 10:44 Complete Blood Count LAB 11/30/24 Logged 15:00 Date of Service: Nov 30, 2024 Billing Provider: ELROY GOETZ NP Common Visit Codes: [id number] CARE 30-74 MIN ELROY GOETZ NP Nov 30, 2024 13:10
--- NOTE | 2024-11-30 13:32 | DVHINCON2 ---
GI Consult Consult Note GI consult note Date of Consultation: 11/30/2024 Chief Complaint: GI bleed Referring Physician: Ang ANGULO H&P: 64-year-old male presented to ER with nausea and vomiting for one day, with dark emesis Patient admits to abdominal pain which is generalized for one day, patient also has complains of black stool Patient admits to drinking alcohol SP colonoscopy one year ago in [place] Patient has had multiple EGDs in past Patient asking for more pain medications DATE OF OPERATION: 09/29/24 PROCEDURE: Upper Endoscopy with biopsy. PREOPERATIVE INDICATION: The patient is a 64 -year-old male undergoing endoscopy for upper GI bleed and anemia POSTOPERATIVE DIAGNOSES: 1. 3 cm sliding-type hiatal hernia with no significant erosive esophagitis and there was a previously placed resolution clip within the hiatal hernia sac but no active ulceration or bleeding 2. [id number] portal hypertension gastropathy from which biopsies were obtained 3. There were no esophageal varices and it was otherwise normal examination up to the 2nd and 3rd part of the duodenum with no fresh or old blood in the upper GI tract PROCEDURE PERFORMED BY: Jaz Preciado Past Medical History: Anemia, CHF, Alcoholic liver cirrhosis, hepatitis-C, Pulmonary hypertension, Past Surgical History: Third-degree rene 9% Social History: Patient lives at home, drinks alcohol heavily, denies smoking or illicit drugs abuse. Family History: Noncontributory Review of Systems: Constitutional: no fever, chill, weight loss HEENT: no eye pain, no hearing loss, no oral lesion, no scleral icterus Heart: no chest pain, no chest pressure Lung: no cough, no dyspnea with exertion Abdomen: see HPI Physical exam: General: NAD, AAOX3 Chest: lung tejeda clear to auscultation Heart: RRR, no murmur Abdomen: non-distended, [id number] generalized tenderness to palpation, +BS Labs: Labs Test 11/30/24 05:30 11/30/24 05:00 11/29/24 20:05 11/29/24 13:59 Range/Units White Blood Count 3.9 #L 4.4-10.8 10^3/uL Red Blood Count 2.47 L 4.5-5.90 10^6/uL Hemoglobin 6.3 *L 13.5-17.5 g/dL Hematocrit 19.6 L 41.0-53.0 % Mean Corpuscular Volume 79.5 #L 80.0-100.0 fL Mean Corpuscular Hemoglobin 25.4 L 28.0-32.0 pg Mean Corpuscular Hemoglobin Concent 32.0 32.0-36.0 g/dL Red Cell Distribution Width 21.0 H 11.8-14.3 % Platelet Count 65 #L 140-450 10^3/uL Mean Platelet Volume 8.2 6.9-10.8 fL Neutrophils (%) (Auto) 50.3 37.0-80.0 % Lymphocytes (%) (Auto) 37.5 10.0-50.0 % Monocytes (%) (Auto) 10.7 0.0-12.0 % Eosinophils (%) (Auto) 0.5 0.0-7.0 % Basophils (%) (Auto) 1.0 0.0-2.0 % Neutrophils # (Auto) 1.9 1.6-8.6 10 ^3/uL Lymphocytes # (Auto) 1.5 0.4-5.4 10 ^3/uL Monocytes # (Auto) 0.4 0-1.3 10 ^3/uL Eosinophils # (Auto) 0 0-0.8 10 ^3/uL Basophils # (Auto) 0 0-0.2 10 ^3/uL Nucleated Red Blood Cells 0.1 % Platelet Estimate Decreased Anisocytosis (manual) Moderate Microcytosis Slight Sodium Level 142 136-145 mmol/L Potassium Level 3.9 3.5-5.1 mmol/L Chloride Level 112 H 98-107 mmol/L Carbon Dioxide Level 24 20-31 mmol/L Anion Gap 6 5-15 Blood Urea Nitrogen 52 #H 9-23 mg/dL Creatinine 0.98 0.700-1.30 mg/dL Glomerular Filtration Rate Calc 87 >90 mL/min BUN/Creatinine Ratio 53.1 H 10.0-20.0 Serum Glucose 111 H 74-106 mg/dL Calcium Level 7.6 L 8.7-10.4 mg/dL Total Bilirubin 1.0 0.2-1.0 mg/dL Aspartate Amino Transferase (AST) 107 H 13-40 U/L Alanine Aminotransferase (ALT) 29 7-40 U/L Alkaline Phosphatase 75 46-116 U/L Total Protein 5.1 L 5.7-8.2 g/dL Albumin 2.4 L 3.2-4.8 g/dL Urine Color Light-yellow Yellow Urine Clarity Clear Clear Urine pH 5.5 5.0-9.0 Urine Specific [place] 1.015 1.001-1.035 Urine Protein Trace H Negative Urine Ketones 1+ H Negative Urine Blood Negative Negative /uL Urine Nitrite Negative Negative Urine Bilirubin Negative Negative Urine Urobilinogen Normal Negative mg/dL Urine Leukocyte Esterase Negative Negative /uL Urine RBC 2 0 - 3 /hpf Urine WBC <1 0 - 3 /hpf Urine Squamous Epithelial Cells None seen <5 /hpf Urine Bacteria Few H None Seen /hpf Urine Glucose Normal Normal mg/dL Prothrombin Time 13.7 H 9.3-11.8 sec Prothrombin Time INR 1.32 H 0.9-1.15 Activated Partial Thromboplast Time 30.7 24.5-34.5 SEC Plasma/Serum Blood Alcohol 4.3 <10 mg/dL Imaging: CT abdomen pelvis 11/02/2024 IMPRESSION: Cirrhotic appearing liver with associated varices. Cholelithiasis with nonspecific gallbladder wall thickening. Mild wall thickening of the stomach and proximal small bowel loops which may be due to portal hypertensive gastro enteropathy with gastroenteritis not excluded. Mild rectal wall thickening which may be due to inadequate distention with neoplasm not excluded. Colonic diverticulosis without diverticulitis. Bilateral renal nonobstructing calculi. Mild mesenteric edema which may be from the liver cirrhosis. Assessment: Abdominal pain Liver cirrhosis GI bleed Heavy alcohol use Severe anemia Plan: Discussed with Dr. Preciado Patient being transfused 4th unit at this time, and has 1 unit of FFP Protonix and Zofran Clear liquid diet NPO after clear liquid breakfast We will re-evaluate when patient is stable and if persistent GI bleeding for possible EGD if required Discussed plan with patient and RN Thank you for this consult Date of Service: Nov 30, 2024 Billing Provider: ROBERTO HICKMAN Common Visit Codes: CONSULT ONLY Consultation Codes: [id number] CONSULT <60MIN ROBERTO HICKMAN Nov 30, 2024 13:32
[2024-11-30] MEDS: FUROSEMIDE 40 MG/4 ML VIAL IV ONE (14:02)
[2024-11-30] MEDS: MORPHINE SULFATE 4 MG/ML SYR/VIAL IV PRN (16:40)
[2024-11-30 19:15] LABS: Basophils # (auto) 0 10 ^3/uL (0-0.2); Eosinophils # (auto) 0 10 ^3/uL (0-0.8); Eosinophils % (auto) 0.6 % (0.0-7.0); Lymphocytes # (auto) 0.8 10 ^3/uL (0.4-5.4); Lymphocytes % (auto) 19.2 % (10.0-50.0); Monocytes # (auto) 0.4 10 ^3/uL (0-1.3); Neutrophils # (auto) 3.1 10 ^3/uL (1.6-8.6); Nucleated Red Blood Cells % 0.2 %; White Blood Cell 4.4 10^3/uL (4.4-10.8)
[2024-11-30 19:18] LABS: Basophils % (auto) 0.5 % (0.0-2.0); Hematocrit 25.3 % (41.0-53.0); Hemoglobin 8.3 g/dL (13.5-17.5); Mean Corpuscular Hemoglobin 26.2 pg (28.0-32.0); Mean Corpuscular Hgb Conc. 32.9 g/dL (32.0-36.0); Mean Corpuscular Volume 79.5 fL (80.0-100.0); Monocytes % (auto) 9.1 % (0.0-12.0); Neutrophils % (auto) 70.6 % (37.0-80.0); Platelet Count (auto) 80 10^3/uL (140-450); Red Blood Cells 3.18 10^6/uL (4.5-5.90); Red Cell Distribution Width 21.3 % (11.8-14.3)
[2024-12-01 01:00] VITALS: BP 139/76; PULSE 80; RESP 18; TEMP 97.6; O2SAT 99
[2024-12-01 05:00] VITALS: BP 146/71; PULSE 70; RESP 18; TEMP 97.7; O2SAT 100
[2024-12-01 07:57] LABS: Basophils # (auto) 0 10 ^3/uL (0-0.2); Eosinophils # (auto) 0 10 ^3/uL (0-0.8); Hemoglobin 7.3 g/dL (13.5-17.5); Lymphocytes # (auto) 0.9 10 ^3/uL (0.4-5.4); Monocytes # (auto) 0.2 10 ^3/uL (0-1.3); Neutrophils # (auto) 1.2 10 ^3/uL (1.6-8.6); White Blood Cell 2.4 10^3/uL (4.4-10.8)
[2024-12-01 08:00] VITALS: O2SAT 100
[2024-12-01 08:01] LABS: Basophils % (auto) 0.8 % (0.0-2.0); Eosinophils % (auto) 1.4 % (0.0-7.0); Hematocrit 22.3 % (41.0-53.0); Lymphocytes % (auto) 37.6 % (10.0-50.0); Mean Corpuscular Hemoglobin 26.1 pg (28.0-32.0); Mean Corpuscular Hgb Conc. 32.8 g/dL (32.0-36.0); Mean Corpuscular Volume 79.5 fL (80.0-100.0); Monocytes % (auto) 9.1 % (0.0-12.0); Neutrophils % (auto) 51.1 % (37.0-80.0); Nucleated Red Blood Cells % 0.2 %; Platelet Count (auto) 61 10^3/uL (140-450); Red Cell Distribution Width 20.4 % (11.8-14.3)
[2024-12-01 08:38] VITALS: BP 143/76; PULSE 80; RESP 18; TEMP 97.9; O2SAT 97
[2024-12-01] MEDS: MULTIPLE VITAMIN TAB PO SCH (09:33)
[2024-12-01] MEDS: EUCERIN CREAM 2OZ TUBE TOP SCH (10:28)
[2024-12-01 13:00] VITALS: BP 137/74; PULSE 83; RESP 18; TEMP 98.6; O2SAT 97
[2024-12-01 14:07] LABS: Hematocrit 26.9 % (41.0-53.0); Hemoglobin 8.7 g/dL (13.5-17.5)
--- NOTE | 2024-12-01 15:13 | DVHDS2 ---
Discharge Summary Date of Admission Nov 29, 2024 at 19:50 Date of Discharge: Dec 01, 2024 Admitting Diagnosis Upper GI bleed Labs/Diagnostic Data: Laboratory Results Test 12/01/24 13:39 12/01/24 05:32 11/30/24 05:30 11/30/24 05:00 Hemoglobin 8.7 g/dL (13.5-17.5) Hematocrit 26.9 % (41.0-53.0) White Blood Count 2.4 10^3/uL (4.4-10.8) Red Blood Count 2.80 10^6/uL (4.5-5.90) Mean Corpuscular Volume 79.5 fL (80.0-100.0) Mean Corpuscular Hemoglobin 26.1 pg (28.0-32.0) Mean Corpuscular Hemoglobin Concent 32.8 g/dL (32.0-36.0) Red Cell Distribution Width 20.4 % (11.8-14.3) Platelet Count 61 10^3/uL (140-450) Mean Platelet Volume 8.3 fL (6.9-10.8) Neutrophils (%) (Auto) 51.1 % (37.0-80.0) Lymphocytes (%) (Auto) 37.6 % (10.0-50.0) Monocytes (%) (Auto) 9.1 % (0.0-12.0) Eosinophils (%) (Auto) 1.4 % (0.0-7.0) Basophils (%) (Auto) 0.8 % (0.0-2.0) Neutrophils # (Auto) 1.2 10 ^3/uL (1.6-8.6) Lymphocytes # (Auto) 0.9 10 ^3/uL (0.4-5.4) Monocytes # (Auto) 0.2 10 ^3/uL (0-1.3) Eosinophils # (Auto) 0 10 ^3/uL (0-0.8) Basophils # (Auto) 0 10 ^3/uL (0-0.2) Nucleated Red Blood Cells 0.2 % Platelet Estimate Decreased Anisocytosis (manual) Moderate Microcytosis Slight Sodium Level 142 mmol/L (136-145) Potassium Level 3.9 mmol/L (3.5-5.1) Chloride Level 112 mmol/L (98-107) Carbon Dioxide Level 24 mmol/L (20-31) Anion Gap 6 (5-15) Blood Urea Nitrogen 52 mg/dL (9-23) Creatinine 0.98 mg/dL (0.700-1.30) Glomerular Filtration Rate Calc 87 mL/min (>90) BUN/Creatinine Ratio 53.1 (10.0-20.0) Serum Glucose 111 mg/dL (74-106) Calcium Level 7.6 mg/dL (8.7-10.4) Total Bilirubin 1.0 mg/dL (0.2-1.0) Aspartate Amino Transferase (AST) 107 U/L (13-40) Alanine Aminotransferase (ALT) 29 U/L (7-40) Alkaline Phosphatase 75 U/L (46-116) Total Protein 5.1 g/dL (5.7-8.2) Albumin 2.4 g/dL (3.2-4.8) Test 11/29/24 20:05 11/29/24 13:59 Urine Color Light-yellow (Yellow) Urine Clarity Clear (Clear) Urine pH 5.5 (5.0-9.0) Urine Specific [place] 1.015 (1.001-1.035) Urine Protein Trace (Negative) Urine Ketones 1+ (Negative) Urine Blood Negative /uL (Negative) Urine Nitrite Negative (Negative) Urine Bilirubin Negative (Negative) Urine Urobilinogen Normal mg/dL (Negative) Urine Leukocyte Esterase Negative /uL (Negative) Urine RBC 2 /hpf (0 - 3) Urine WBC <1 /hpf (0 - 3) Urine Squamous Epithelial Cells None seen /hpf (<5) Urine Bacteria Few /hpf (None Seen) Urine Glucose Normal mg/dL (Normal) Prothrombin Time 13.7 sec (9.3-11.8) Prothrombin Time INR 1.32 (0.9-1.15) Activated Partial Thromboplast Time 30.7 SEC (24.5-34.5) Plasma/Serum Blood Alcohol 4.3 mg/dL (<10) Other Laboratory Tests 12/01/24 13:39 12/01/24 05:32 11/30/24 05:00 Brief Hx & Hospital Course: History of Present Illness 64-year-old male presents for evaluation of GI bleed. Patient with history of liver cirrhosis secondary to alcohol abuse presents with a one day history of noticing dark-colored stool and vomiting dark coffee-ground emesis. She reports binge drinking over the past three days. Denies chest pain or shortness for breath. Reports mild dizziness. States having diffuse abdominal pain. No other acute complaints reported. Course of hospitalization: GI consultation was obtained. Patient was placed on octreotide as well as Protonix drip. Patient received a total of 4 units of PRBCs and 1 unit of FFP. Discussion was made with Dr. Yuniel Preciado, Gastroenterology regarding plan of care. She states that she recently performed EGD, and we will monitor the patient's H and H at this time. Patient's H&H has been holding. Patient decided to leave [facility] before being seen on 12/01/2024. Total time spent with patient discussing and formulating plan of care: 35 minutes. This medical document was created using an electronic medical record system with [employer] dictation system. Although this document has been carefully reviewed, there may still be some phonetic and typographical errors. These areas are purely typographical due to imperfections of the software programs, and do not reflect any compromise in the patient's medical care. Consults/Reason for consult Gastroenterology: Upper GI bleed Condition at Discharge: Undetermined Final Diagnosis/Problems List Upper GI bleed Secondary Diagnosis: -upper GI bleed, questionable bleeding esophageal varices -portal hypertension -cirrhosis -alcoholism -toxic metabolic encephalopathy -anemia secondary to GI bleed Discharge Disposition: [facility] Discharge Statement: "Patient was advised to return to the ER or call 911 if any headaches, dizziness, shortness of breath, chest pain, abdominal pain, bleeding, fevers, or worsening of medical condition. Patient was counseled about treatment plan, medications, possible side effects, patientverbalized understanding. All questions were answered to the best of my ability. This discharge took greater then 30 minutes in planning, reviewing documentation, counseling the patient, and discussing with other team members." ASSESSMENT ASSESSMENT Assessment Date of Service: Dec 01, 2024 Billing Provider: ELROY GOETZ NP Common Visit Codes: [id number] DISCH DAY >30min ELROY GOETZ NP Dec 01, 2024 15:13
== END 2024-12-01 13:51 | disposition left against medical advice (07) | DRG 280 ==
LOC: ER 13:04 → EDBD 13:04 → OVERFLOW 19:50 → WEST WING 11-30 15:03
PROVIDERS: ADMIT Nurse Practitioner Acute Care; ATTEND Nurse Practitioner Acute Care
PROC: 30233N1 Transfusion of Nonautologous Red Blood Cells into Peripheral Vein, Percutaneous Approach (ICD-10-PCS; 2024-11-29)
PROC: 30233K1 Transfusion of Nonautologous Frozen Plasma into Peripheral Vein, Percutaneous Approach (ICD-10-PCS; principal; 2024-11-30)
DX: K70.30 Alcoholic cirrhosis of liver without ascites (principal); G92.8 Other toxic encephalopathy; I85.11 Secondary esophageal varices with bleeding; E43 Unspecified severe protein-calorie malnutrition; K76.6 Portal hypertension; D68.9 Coagulation defect, unspecified; I50.9 Heart failure, unspecified; Z53.29 Procedure and treatment not carried out because of patient's decision for other reasons; D50.0 Iron deficiency anemia secondary to blood loss (chronic); F10.20 Alcohol dependence, uncomplicated; Z79.899 Other long term (current) drug therapy; Y90.0 Blood alcohol level of less than 20 mg/100 ml; Z68.26 Body mass index [BMI] 26.0-26.9, adult
CPT/HCPCS: 36415; 80053; 80320; 81001; 85014; 85018; 85025; 85610; 85730; 86850; 86900; 86901; 86920; 99291; G0378; J2405; J2470

== ENCOUNTER 2024-12-28 15:37 | Inpatient (IN) | payer MEDICAID ==
[~2024-12-28] VITALS: Ht 177.8 cm; Wt 88.5 kg
--- NOTE | 2024-12-28 15:48 | ED.PDOC ---
History of Present Illness HPI Comments This is a 64-year-old male who comes in with chief complaint of abdominal pain as well as nausea, vomiting and diarrhea over the past three hours. The patient has had black stool as well as vomiting coffee-ground emesis. The patient states that he has had episodes in the past and has been transfused with blood in the past. Time Seen by MD: 15:39 Primary Care Provider: YOLY Diane Notes: Nurses Notes, Junior Buyer Notes, Medications, Allergies (No allergies to medications) Allergies: Coded Allergies: NO KNOWN ALLERGIES (Unverified , 11/03/22) Home Meds Active Scripts Ibuprofen (Ibuprofen) 800 Mg Tab, 1 TAB PO TID, #20 TAB Prov:SWAPNA ROMANO 08/21/23 Colchicine (Colchicine) 0.6 Mg Cap, 0.6 MG PO BID, #20 CAP Prov:SWAPNA ROMANO 08/21/23 Indomethacin (Indomethacin) 50 Mg Cap, 1 CAP PO TID, #30 CAP Prov:SWAPNA ROMANO 08/21/23 Pantoprazole Sodium Sesquihydr (Pantoprazole Sodium) 40 Mg Tab, 40 MG PO DAILY for 30 Days, #30 TAB Prov:LEROY DE LA ROSA MD 11/08/22 Ferrous Sulfate (FERROUS SULFATE) 325 Mg Tb, 1 TAB PO DAILY, #30 TAB 3 Refills Prov:LEROY DE LA ROSA MD 11/08/22 Thiamine Hcl (VITAMIN B-1) 100 Mg Tb, 100 MG PO DAILY for 30 Days, #30 TAB Prov:LEROY DE LA ROSA MD 11/08/22 Reported Medications Naproxen (NAPROSYN TABLET) 500 Mg Tb 06/25/24 Furosemide (Furosemide) 40 Mg Tab 06/25/24 Hydroxyzine HCl (Hydroxyzine Hydrochloride) 50 Mg Tab, 50 MG PO, TAB 11/04/22 Gabapentin (Gabapentin) 600 Mg Tab, 800 MG PO for 30 Days, MG 11/04/22 Furosemide (Furosemide) 20 Mg Tab, 25 MG PO BIDD for 30 Days, MG 11/04/22 Hydrocodone-Acetaminophen (Hydrocodone Bitartrate/AC 10-325 mg) 1 Tab Tab, 1 TAB PO, TAB 11/04/22 Information Source: Patient, Emergency Med Personnel Mode of Arrival: EMS Severity: Moderate Timing: Hours Duration: Since onset Prehospital treatment: Accucheck (121), IVF, Other (The patient was given Zofran 4 mg IV push for the nausea) Associated signs and symptoms Abdominal pain with the vomiting and hematemesis as well as coffee-ground stool Past Medical History PAST MEDICAL HISTORY: Anemia, CHF, Liver Past Medical History (Other): Neuropathy, GI bleed Surgical History (Other): Right knee surgery Family History Family History: Reviewed,noncontributory to illness Social History Smoker: Non-Smoker Alcohol: Heavy Drugs: Marijuana Lives In: Home Constitutional: denies: chills, diaphoresis, fatigue, fever, malaise, sweats, weakness, others EENTM: denies: blurred vision, double vision, ear bleeding, ear discharge, ear drainage, ear pain, ear ringing, eye pain, eye redness, hearing loss, mouth pain, mouth swelling, nasal discharge, nose bleeding, nose congestion, nose pain, photophobia, tearing, throat pain, throat swelling, voice changes, others Respiratory: denies: cough, hemoptysis, orthopnea, SOB at rest, shortness of breath, SOB with excertion, stridor, wheezing, others Cardiovascular: denies: chest pain, dizzy spells, diaphoresis, Dyspnea on exertion, edema, irregular heart beat, left arm pain, lightheadedness, palpitations, PND, syncope, others Gastrointestinal: reports: abdominal pain, hematemesis, others (Black stool); denies: abdomen distended, blood streaked bowels, constipated, diarrhea, dysphagia, difficulty swallowing, melena, nausea, poor appetite, poor fluid intake, rectal bleeding, rectal pain, vomiting Genitourinary: denies: burning, dysuria, flank pain, frequency, hematuria, incontinence, penile discharge, penile sore, pain, testicle pain, testicle swelling, urgency, others Neurological: denies: dizziness, fainting, headache, left sided numbness, left sided weakness, numbness, paresthesia, pre-existing deficit, right sided numbness, right sided weakness, seizure, speech problems, tingling, tremors, weakness, others Musculoskeletal: denies: back pain, gout, joint pain, joint swelling, muscle pain, muscle stiffness, neck pain, others Integumetry: denies: bruises, change in color, change in hair/nails, dryness, laceration, lesions, lumps, rash, wounds, others Allergic/Immunocompromised: denies: Difficulty Healing, Frequent Infections, Hives, Itching, others Hematologic/Lymphatic: denies: anemia, blood clots, easy bleeding, easy bruising, swollen glands, others Endocrine: denies: excessive hunger, excessive sweating, excessive thirst, excessive urination, flushing, intolerance to cold, intolerance to heat, unexplained weight gain, unexplained weight loss, others Psychiatric: denies: anxiety, bipolar disorder, depression, hopeless, panic disorder, schizophrenia, sleepless, suicidal, others Physical Exam General Appearance: Moderate Distress HEENT: Pale Conjuntivae (L), Pale Conjuntivae (R), Pharynx Normal, TMs Normal Neck: Full Range of Motion, Non-Tender, Normal, Normal Inspection Respiratory: Chest Non-Tender, Lungs Clear, No Accessory Muscle Use, No Respiratory Distress, Normal Breath Sounds Cardiovascular: No Edema, No JVD, No Murmur, No Gallop, Normal Peripheral Pulses, Regular Rate/Rhythm Breast Exam: Deferred Gastrointestinal: Diffuse, Hepatomegaly, No Pulsatile Mass, Normal Bowel Sounds, Soft, Tenderness Genitalia: Deferred Pelvic: Deferred Rectal: Deferred Extremities: No calf tenderness, Normal capillary refill, No pedal edema Musculoskeletal : Apperance: Normal Neurologic: Alert, 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 Was a procedure done?: No Differential Dx Considerations may include: Generalized weakness, dehydration, vomiting X-Ray, Labs, Meds, VS Vital Signs Date Time Temp Pulse Resp B/P (MAP) Pulse Ox O2 Delivery O2 Flow Rate FiO2 12/28/24 15:48 97.8 105 18 118/78 (91) 65 Lab Test 12/28/24 16:04 Range/Units White Blood Count 8.2 4.4-10.8 10^3/uL Red Blood Count 3.03 L 4.5-5.90 10^6/uL Hemoglobin 6.7 *L 13.5-17.5 g/dL Hematocrit 22.0 L 41.0-53.0 % Mean Corpuscular Volume 72.5 L 80.0-100.0 fL Mean Corpuscular Hemoglobin 22.2 L 28.0-32.0 pg Mean Corpuscular Hemoglobin Concent 30.6 L 32.0-36.0 g/dL Red Cell Distribution Width 23.6 H 11.8-14.3 % Platelet Count 136 L 140-450 10^3/uL Mean Platelet Volume 8.2 6.9-10.8 fL Neutrophils (%) (Auto) 82.4 H 37.0-80.0 % Lymphocytes (%) (Auto) 9.3 L 10.0-50.0 % Monocytes (%) (Auto) 8.0 0.0-12.0 % Eosinophils (%) (Auto) 0.0 0.0-7.0 % Basophils (%) (Auto) 0.3 0.0-2.0 % Neutrophils # (Auto) 6.8 1.6-8.6 10 ^3/uL Lymphocytes # (Auto) 0.8 0.4-5.4 10 ^3/uL Monocytes # (Auto) 0.7 0-1.3 10 ^3/uL Eosinophils # (Auto) 0 0-0.8 10 ^3/uL Basophils # (Auto) 0 0-0.2 10 ^3/uL Nucleated Red Blood Cells 0.0 % Prothrombin Time Pending Prothrombin Time INR Pending Activated Partial Thromboplast Time Pending Sodium Level 139 136-145 mmol/L Potassium Level 4.4 3.5-5.1 mmol/L Chloride Level 106 98-107 mmol/L Carbon Dioxide Level 21 20-31 mmol/L Anion Gap 12 5-15 Blood Urea Nitrogen 31 H 9-23 mg/dL Creatinine 0.90 0.700-1.30 mg/dL Glomerular Filtration Rate Calc 96 >90 mL/min BUN/Creatinine Ratio 34.4 H 10.0-20.0 Serum Glucose 112 H 74-106 mg/dL Calcium Level 8.5 L 8.7-10.4 mg/dL Total Bilirubin 1.1 H 0.2-1.0 mg/dL Aspartate Amino Transferase (AST) 59 H 13-40 U/L Alanine Aminotransferase (ALT) 24 7-40 U/L Alkaline Phosphatase 118 H 46-116 U/L Total Protein 6.4 5.7-8.2 g/dL Albumin 3.2 3.2-4.8 g/dL Lipase 42 12-53 U/L CT ABDOMEN AND PELVIS WITHOUT CONTRAST IMPRESSION: 1. There is no acute process in the abdomen and pelvis. 2. Hepatic cirrhosis. There is no gross evidence of a discrete hepatic lesion. There is no ascites. 3. Cholelithiasis. 4. Colonic diverticulosis. IV Hep-Lock was established The patient was given Protonix 40 mg IV push The patient is being admitted to the hospitalist. The patient was being given morphine and Zofran The patient's CBC shows severe anemia with a hemoglobin of only 6.7 and hematocrit of 22 The liver enzymes show some elevation The patient was being typed and screened. The patient will be transfused with packed red blood cells The patient was being admitted at this time. Images Reviewed?: Images reviewed and evaluated by me Time of 1ST Reevaluation: 15:56 Reevaluation 1ST: Unchanged Patient Education/Counseling: Diagnosis, Treatment, Prognosis Family Education/Counseling: No Family Present Departure 1 Departure Time of Disposition: 16:56 Impression: Primary Impression: Alcoholic cirrhosis Qualified Codes: K70.31 - Alcoholic cirrhosis of liver with ascites Additional Impressions: Abdominal pain Qualified Codes: R10.9 - Unspecified abdominal pain Blood loss anemia Disposition: 09 ADMITTED INPATIENT Admit to: Tele Condition: Fair Critical Care Note Critical Care Time?: Yes (45 min-critical care time only) Stability Stability form required: Yes Unstable for transfer: Telemetry monitoring (Telemetry monitoring required), ED Physician Assesment (Clinical assesment) Heart Score Heart Score: Heart Score Response (Comments) Value History N/A 0 EKG N/A 0 Age N/A 0 Risk Factors N/A 0 Troponin N/A 0 Total 0 I personally scribed for ELIZABETH CHAPPELL MD ([email or web address]) on 12/28/24 at 16:23. Electronically submitted by Genevieve Guerrero ([email or web address]). ELIZABETH CHAPPELL MD Dec 28, 2024 15:48
--- NOTE | 2024-12-28 16:11 | DVH ---
CT ABDOMEN AND PELVIS WITHOUT CONTRAST CLINICAL HISTORY: pain TECHNIQUE: Multiple contiguous axial images of the abdomen and pelvis without intravenous contrast. The images were reformatted degenerate coronal and sagittal reconstructions. All CT scans at this medical facility are performed using dose modulation techniques as appropriate t o a performed exam including the following:Automated exposure control was utilized; adjustment of the MA and/or KV according to patient size; and use of iterative reconstruction technique. Radiation Dose Information: CT Dose: CTDI volume is 11 mGy. Dose-length product is 648 mGy*cm Comparison: CT CT AB PEL WO CON-NO ORAL OR IV on DOS: 09/26/24 FINDINGS: Evaluation of the abdomen and pelvis is limited without intravenous contrast. The liver demonstrates cirrhotic morphology. There is no gross evidence of a discrete hepatic lesion. There are stable mildly prominent spleen. There are calcified gallstones in the gallbladder. There is bilateral renal medullary nephrocalcinosis. There is no evidence of nephrolithiasis or hydro nephrosis. The pancreas, adrenal glands, and spleen appear within normal limits. There is no gross evidence of abdominal lymphadenopathy. There is no free fluid or free air. There are surgical clips at the GE junction. The stomach otherwise appears within normal limits. Th e small and large bowel loops demonstrate normal caliber. There are scattered diverticula in the col on without evidence of acute diverticulitis. The abdominal aorta and IVC appear within normal limits. The bladder appears unremarkable for the degree of distention. Pelvic organ appears within normal davis its. There is no gross evidence of a pelvic mass. There is no free fluid collection. There is a smal l fat containing left inguinal hernia. Lung bases are clear. There is no acute osseous abnormality. IMPRESSION: 1. There is no acute process in the abdomen and pelvis. 2. Hepatic cirrhosis. There is no gross evidence of a discrete hepatic lesion. There is no ascites. 3. Cholelithiasis. 4. Colonic diverticulosis. HS:Y
[2024-12-28 16:17] LABS: Basophils # (auto) 0 10 ^3/uL (0-0.2); Eosinophils # (auto) 0 10 ^3/uL (0-0.8); Lymphocytes # (auto) 0.8 10 ^3/uL (0.4-5.4); Mean Corpuscular Hgb Conc. 30.6 g/dL (32.0-36.0); Neutrophils # (auto) 6.8 10 ^3/uL (1.6-8.6); White Blood Cell 8.2 10^3/uL (4.4-10.8)
[2024-12-28 16:20] LABS: Basophils % (auto) 0.3 % (0.0-2.0); Lymphocytes % (auto) 9.3 % (10.0-50.0); Mean Corpuscular Hemoglobin 22.2 pg (28.0-32.0); Mean Corpuscular Volume 72.5 fL (80.0-100.0); Monocytes # (auto) 0.7 10 ^3/uL (0-1.3); Neutrophils % (auto) 82.4 % (37.0-80.0); Platelet Count (auto) 136 10^3/uL (140-450); Red Blood Cells 3.03 10^6/uL (4.5-5.90)
[2024-12-28 16:28] LABS: Red Cell Distribution Width 23.6 % (11.8-14.3)
[2024-12-28 16:30] LABS: Hemoglobin 6.7 g/dL (13.5-17.5)
[2024-12-28 16:35] LABS: Alanine Aminotransferase 24 U/L (7-40); Anion Gap 12 (5-15); BUN/Creatinine Ratio 34.4 (10.0-20.0); Bilirubin, Total 1.1 mg/dL (0.2-1.0); Carbon Dioxide 21 mmol/L (20-31); Chloride 106 mmol/L (98-107); Lipase 42 U/L (12-53); Potassium 4.4 mmol/L (3.5-5.1); Sodium 139 mmol/L (136-145); Total Protein 6.4 g/dL (5.7-8.2)
[2024-12-28 16:43] LABS: Albumin 3.2 g/dL (3.2-4.8); Alkaline Phosphatase 118 U/L (46-116); Aspartate Aminotransferase 59 U/L (13-40); Blood Urea Nitrogen 31 mg/dL (9-23); Calcium 8.5 mg/dL (8.7-10.4); Glucose 112 mg/dL (74-106)
[2024-12-28 16:55] LABS: INR 1.3 (0.9-1.15); Partial Thromboplastin Time 32.5 SEC (24.5-34.5); Prothrombin Time 13.4 sec (9.3-11.8)
[2024-12-28] MEDS: PANTOPRAZOLE 40 MG/10 ML VIAL INJ IV ONE (17:13)
[2024-12-28] MEDS: MORPHINE SULFATE 4 MG/ML SYR/VIAL IV ONE (17:15)
[2024-12-28 19:10] VITALS: BP 105/60; PULSE 115; RESP 24; TEMP 98.7
[2024-12-28 19:25] VITALS: BP 102/54; PULSE 101; RESP 21; TEMP 97.6
[2024-12-28] MEDS ORDERED: hydrALAZINE HCL 20 MG/ML VL IV PRN (21:00)
[2024-12-28] MEDS ORDERED: DOCUSATE SOD 100 MG CAP PO PRN (21:00)
[2024-12-28] MEDS ORDERED: ONDANSETRON HCL 4 MG/2 ML VIAL IV PRN (21:00)
[2024-12-28 21:30] VITALS: BP 93/50; PULSE 97; RESP 18; TEMP 97.7
[2024-12-28 21:45] VITALS: BP 109/50; PULSE 97; RESP 21; TEMP 97.6
[2024-12-28] MEDS: PANTOPRAZOLE 40 MG/10 ML VIAL INJ IV SCH (22:22)
--- NOTE | 2024-12-28 22:34 | DVHHP2 ---
History of Present Illness Reason for Visit: GI bleed History of Present Illness The patient is a 64-year-old male with multiple past medical history including GI bleed, liver disease, and anemia presented to [facility] ED with complaint of abdominal pain. Patient reports symptoms progressively get worse with associated diarrhea, nausea, vomiting coffee ground emesis, getting worse today that prompted this visit. Patient was seen and evaluated in the ED, laboratory data shows WBC 8.2, hemoglobin 6.7, hematocrit 22.0, platelets 136, sodium 139, potassium 4.4, BUN 31, creatinine 0.90, GFR 96, glucose 112, AST 99, ALT 24, lipase 42, blood pressure 105/60, heart rate 112, temperature 98.7 F, O 2 saturation 98% on room air. Abdomen/pelvis CT showed no acute process in the abdomen and pelvis, noted cholelithiasis, colonic diverticulosis. Patient will receive 1 units of PRBC, Please see medication orders section in the computer. On my assessment, patient denied chest pain, no headache, no dizziness, no shortness a breath, no nausea, no vomiting, no fever, no chills. Patient was admitted for further evaluation and medical management. Past Medical History Anemia, CHF, Liver disease, Neuropathy, GI bleed Past Surgical History Right knee surgery Family History Reviewed, noncontributory to the management of this case. Past Social History The patient lives at home, denies smoking, alcohol or illicit drugs abuse. Review of Systems Constitutional: Yes: Weakness; No: Fever, Chills, Sweats, Malaise, Other Eyes: No: Pain, Vision change, Conjunctivae inflammation, Eyelid inflammation, Other, Redness ENT: No: Ear pain, Ear discharge, Nose pain, Nose discharge, Nose congestion, Mouth pain, Mouth swelling, Throat pain, Throat swelling, Other Respiratory: No: Cough, Dry, Shortness of breath, SOB with excertion, Wheezing, Hemoptysis, Pleuritic Pain, Sputum, Wheezing, Other Cardiovascular: No: Chest Pain, Palpitations, Orthopnea, Paroxysmal Noc. Dyspnea, Edema, Lt Headedness, Other Gastrointestinal: Nausea, Vomiting, Abdominal Pain, Diarrhea, Other (Hematemesis, black stool.); No: Constipation, Melena, Hematochezia Genitourinary: No Dysuria, No Frequency, No Incontinence, No Hematuria, No Retention, No Other Musculoskeletal: No: other, neck pain, shoulder pain, arm pain, back pain, hand pain, leg pain, foot pain Skin: No: Rash, Lesions, Jaundice, Bruising, Other Neurological: No: Weakness, Numbness, Incoordination, Change in speech, Confusion, Seizures, Other Allergies: Coded Allergies: NO KNOWN ALLERGIES (Unverified , 11/03/22) Medications Current Medications Medications Dose Ordered Sig/Jesika Route Start Time Stop Time Status Last Admin Dose Admin Thiamine HCl 100 mg DAILY PO 12/29/24 10:00 Folic Acid 1 mg DAILY PO 12/29/24 10:00 Pantoprazole Sodium 40 mg BID IV 12/28/24 22:00 12/28/24 22:22 40 MG Hydralazine HCl 10 mg Q6HP PRN IV 12/28/24 21:00 Acetaminophen/ Hydrocodone Bitart 1 tab Q4HP PRN PO 12/28/24 21:00 Ondansetron HCl 4 mg Q4HP PRN IV 12/28/24 21:00 Docusate Sodium 100 mg BIDPRN PRN PO 12/28/24 21:00 Acetaminophen 500 mg Q6HP PRN PO 12/28/24 21:00 Morphine Sulfate 2 mg Q4HPRN PRN IV 12/28/24 21:00 Exam Vital Signs Vital Signs Date Time Temp Pulse Resp B/P (MAP) Pulse Ox O2 Delivery O2 Flow Rate FiO2 12/28/24 19:30 Room Air* 0 21 12/28/24 19:10 98.7 115 24 105/60 98.7 12/28/24 17:08 98 General Appearance: Alert, Oriented X3, Cooperative, No acute distress HEENT: Atraumatic, PERRLA, EOMI, Mucous membr. moist/pink Respiratory: Clear to auscultation, Normal air movement Cardiovascular: Regular rate, Normal S1, Normal S2, No murmurs Abdominal: Normal bowel sounds, Soft, No tenderness, No hepatospenomegaly, No masses Extremities: No clubbing, No cyanosis, No edema, Normal pulses, No tenderness/swelling Skin: No rashes, No breakdown, No significant lesion Neuro: Normal speech, Normal tone, Sensation intact, Cranial nerves 3-12 NL, Reflexes 2+, Other (Generalized weakness) Psych/Mental Status: Mental status NL, Mood NL Labs/Xrays Labs Test 12/28/24 16:04 Range/Units White Blood Count 8.2 4.4-10.8 10^3/uL Red Blood Count 3.03 L 4.5-5.90 10^6/uL Hemoglobin 6.7 *L 13.5-17.5 g/dL Hematocrit 22.0 L 41.0-53.0 % Mean Corpuscular Volume 72.5 L 80.0-100.0 fL Mean Corpuscular Hemoglobin 22.2 L 28.0-32.0 pg Mean Corpuscular Hemoglobin Concent 30.6 L 32.0-36.0 g/dL Red Cell Distribution Width 23.6 H 11.8-14.3 % Platelet Count 136 L 140-450 10^3/uL Mean Platelet Volume 8.2 6.9-10.8 fL Neutrophils (%) (Auto) 82.4 H 37.0-80.0 % Lymphocytes (%) (Auto) 9.3 L 10.0-50.0 % Monocytes (%) (Auto) 8.0 0.0-12.0 % Eosinophils (%) (Auto) 0.0 0.0-7.0 % Basophils (%) (Auto) 0.3 0.0-2.0 % Neutrophils # (Auto) 6.8 1.6-8.6 10 ^3/uL Lymphocytes # (Auto) 0.8 0.4-5.4 10 ^3/uL Monocytes # (Auto) 0.7 0-1.3 10 ^3/uL Eosinophils # (Auto) 0 0-0.8 10 ^3/uL Basophils # (Auto) 0 0-0.2 10 ^3/uL Nucleated Red Blood Cells 0.0 % Prothrombin Time 13.4 H 9.3-11.8 sec Prothrombin Time INR 1.30 H 0.9-1.15 Activated Partial Thromboplast Time 32.5 24.5-34.5 SEC Sodium Level 139 136-145 mmol/L Potassium Level 4.4 3.5-5.1 mmol/L Chloride Level 106 98-107 mmol/L Carbon Dioxide Level 21 20-31 mmol/L Anion Gap 12 5-15 Blood Urea Nitrogen 31 H 9-23 mg/dL Creatinine 0.90 0.700-1.30 mg/dL Glomerular Filtration Rate Calc 96 >90 mL/min BUN/Creatinine Ratio 34.4 H 10.0-20.0 Serum Glucose 112 H 74-106 mg/dL Calcium Level 8.5 L 8.7-10.4 mg/dL Total Bilirubin 1.1 H 0.2-1.0 mg/dL Aspartate Amino Transferase (AST) 59 H 13-40 U/L Alanine Aminotransferase (ALT) 24 7-40 U/L Alkaline Phosphatase 118 H 46-116 U/L Total Protein 6.4 5.7-8.2 g/dL Albumin 3.2 3.2-4.8 g/dL Lipase 42 12-53 U/L PATIENT: MARY GRACE CAMEJO ACCT: [id number] UNIT: [id number] : 1960 LOC: ER ROOM / BED: / AGE / SEX: 64 / M ADM STATUS: REG ER SERVICE [id number] ORDERING PHYSICIAN: ELIZABETH CHAPPELL MD PROCEDURE(s): ABPL - CT AB PEL WO CON-NO ORAL OR IV REASON: pain ORDER NUMBER(s): [id number], ACCESSION NUMBER(s): [id number] CT ABDOMEN AND PELVIS WITHOUT CONTRAST CLINICAL HISTORY: pain TECHNIQUE: Multiple contiguous axial images of the abdomen and pelvis without intravenous contrast. The images were reformatted degenerate coronal and sagittal reconstructions. All CT scans at this medical facility are performed using dose modulation techniques as appropriate to a performed exam including the following:Automated exposure control was utilized; adjustment of the MA and/or KV according to patient size; and use of iterative reconstruction technique. Radiation Dose Information: CT Dose: CTDI volume is 11 mGy. Dose-length product is 648 mGy*cm Comparison: CT CT AB PEL WO CON-NO ORAL OR IV on DOS: 09/26/24 FINDINGS: Evaluation of the abdomen and pelvis is limited without intravenous contrast. The liver demonstrates cirrhotic morphology. There is no gross evidence of a discrete hepatic lesion. There are stable mildly prominent spleen. There are calcified gallstones in the gallbladder. There is bilateral renal medullary nephrocalcinosis. There is no evidence of nephrolithiasis or hydronephrosis. The pancreas, adrenal glands, and spleen appear within normal limits. There is no gross evidence of abdominal lymphadenopathy. There is no free fluid or free air. There are surgical clips at the GE junction. The stomach otherwise appears within normal limits. The small and large bowel loops demonstrate normal caliber. There are scattered diverticula in the colon without evidence of acute diverticulitis. The abdominal aorta and IVC appear within normal limits. The bladder appears unremarkable for the degree of distention. Pelvic organ appears within normal limits. There is no gross evidence of a pelvic mass. There is no free fluid collection. There is a small fat containing left inguinal hernia. Lung bases are clear. There is no acute osseous abnormality. IMPRESSION: 1. There is no acute process in the abdomen and pelvis. 2. Hepatic cirrhosis. There is no gross evidence of a discrete hepatic lesion. There is no ascites. 3. Cholelithiasis. 4. Colonic diverticulosis. Assessment/Plan Assessment/Plan Alcoholic cirrhosis Alcoholic cirrhosis of liver with ascites Abdominal pain Unspecified abdominal pain Blood loss anemia Generalized weakness Plan 1. Admit to telemetry unit 2. Breathing treatment 3. Pain control management 4. Management of fluids and electrolytes 5. Consultation for GI/hospitalist 6. Diagnostic tests abdomen/pelvis CT 7. DVT prophylaxis on SCDs 8. Repeat labs CBC, CMP in a.m. 9. Continue with current medical management 10. Treatment plan discussed with patient and RN. Patient verbalized understanding. Plan discussed with: Patient, Other (RN) My Orders Orders - BRAYAN ARRINGTON DNP Procedure Category Date Status Time Thiamine Tab PHA 12/29/24 In Process 10:00 Folic Acid Tablet PHA 12/29/24 In Process 10:00 Pantoprazole PHA 12/28/24 In Process (Protonix) 22:00 * [facility] [employer] Specialist CONS 12/28/24 Transmitted 21:00 Hydralazine Injection PHA 12/28/24 In Process (Apresoline Inject 21:00 Allergies KATHI 12/28/24 In Process 21:00 Code Status CODE 12/28/24 Transmitted 21:00 Oxygen Per Hour RT 12/28/24 Transmitted 21:00 Hydrocodone-Acet PHA 12/28/24 In Process 5/325mg Tab ([place] 21:00 Ondansetron Hcl PHA 12/28/24 In Process (Zofran) 21:00 Docusate Sodium PHA 12/28/24 In Process Capsule (Colace 21:00 Complete Blood Count LAB 12/29/24 Verified 04:00 Comprehensive LAB 12/29/24 Verified Metabolic Panel 04:00 Condition: Serious KATHI 12/28/24 In Process 21:00 Acetaminophen Tablet PHA 12/28/24 In Process (Tylenol Tablet) 21:00 Clear Liq Diet DIET 12/29/24 Transmitted Breakfast Bedrest With Bathroom KATHI 12/28/24 In Process Privileg 21:00 Morphine Sulfate PHA 12/28/24 In Process Injection 21:00 Sequential KATHI 12/28/24 In Process Compression Device Admit ADMIT 12/28/24 Verified 22:33 Nitroglycerin PHA 12/28/24 Verified Sublingual (Ntrostat 22:45 Problem List: (1) Alcoholic cirrhosis (2) Abdominal pain (3) Alcoholic cirrhosis (4) Blood loss anemia (5) Generalized weakness (6) Unspecified abdominal pain (7) Alcoholic cirrhosis of liver with ascites Date of Service: Dec 28, 2024 Billing Provider: BRAYAN ARRINGTON DNP Common Visit Codes: [id number] INP/OBS CARE (HIGH) BRAYAN ARRINGTON DNP Dec 28, 2024 22:34
[2024-12-28] MEDS ORDERED: NITROGLYCERIN 0.4 MG SL TAB SL PRN (22:45)
[2024-12-29] VITALS (16 sets, daily range): BP systolic 89–125; BP diastolic 40–72; PULSE 67–98; RESP 13–19; TEMP 97–98.5; O2SAT 16–99
[2024-12-29 01:58] LABS: Basophils # (auto) 0 10 ^3/uL (0-0.2); Basophils % (auto) 0.4 % (0.0-2.0); Eosinophils # (auto) 0 10 ^3/uL (0-0.8); Lymphocytes # (auto) 1.5 10 ^3/uL (0.4-5.4); Neutrophils # (auto) 4.7 10 ^3/uL (1.6-8.6); Nucleated Red Blood Cells % 0.1 %
[2024-12-29 02:00] LABS: Eosinophils % (auto) 0.2 % (0.0-7.0); Hematocrit 18.7 % (41.0-53.0); Lymphocytes % (auto) 21.6 % (10.0-50.0); Mean Corpuscular Hemoglobin 22.9 pg (28.0-32.0); Mean Corpuscular Hgb Conc. 30.8 g/dL (32.0-36.0); Mean Corpuscular Volume 74.5 fL (80.0-100.0); Monocytes # (auto) 0.8 10 ^3/uL (0-1.3); Monocytes % (auto) 10.8 % (0.0-12.0); Platelet Count (auto) 90 10^3/uL (140-450); Red Blood Cells 2.51 10^6/uL (4.5-5.90); Red Cell Distribution Width 22.7 % (11.8-14.3)
[2024-12-29 02:22] LABS: Hemoglobin 5.7 g/dL (13.5-17.5)
[2024-12-29] MEDS: MORPHINE SULFATE INJ 2 MG/ml SYRG IV PRN (03:11)
[2024-12-29] MEDS: FOLIC ACID 1 MG TAB PO SCH (08:13)
[2024-12-29] MEDS: THIAMINE HCL 100 MG TAB PO SCH (08:13)
[2024-12-29] MEDS: HYDROcodone-ACET 5/325MG TAB PO PRN (08:20)
[2024-12-29 09:22] LABS: Basophils # (auto) 0 10 ^3/uL (0-0.2); Basophils % (auto) 0.3 % (0.0-2.0); Eosinophils # (auto) 0 10 ^3/uL (0-0.8); Eosinophils % (auto) 0.5 % (0.0-7.0); Hematocrit 19.2 % (41.0-53.0); Lymphocytes % (auto) 19.8 % (10.0-50.0); Mean Corpuscular Hemoglobin 24.4 pg (28.0-32.0); Mean Corpuscular Hgb Conc. 31.6 g/dL (32.0-36.0); Mean Corpuscular Volume 77.2 fL (80.0-100.0); Monocytes # (auto) 0.4 10 ^3/uL (0-1.3); Monocytes % (auto) 8.9 % (0.0-12.0); Neutrophils # (auto) 3.4 10 ^3/uL (1.6-8.6); Neutrophils % (auto) 70.5 % (37.0-80.0); Nucleated Red Blood Cells % 0.1 %; Platelet Count (auto) 65 10^3/uL (140-450); Red Blood Cells 2.48 10^6/uL (4.5-5.90); White Blood Cell 4.9 10^3/uL (4.4-10.8)
[2024-12-29 09:37] LABS: Alanine Aminotransferase 23 U/L (7-40); Alkaline Phosphatase 79 U/L (46-116); Anion Gap 6 (5-15); BUN/Creatinine Ratio 54.3 (10.0-20.0); Carbon Dioxide 22 mmol/L (20-31); Glucose 93 mg/dL (74-106); Potassium 4.9 mmol/L (3.5-5.1); Sodium 139 mmol/L (136-145)
[2024-12-29 09:38] LABS: Albumin 2.6 g/dL (3.2-4.8); Aspartate Aminotransferase 69 U/L (13-40); Blood Urea Nitrogen 51 mg/dL (9-23); Calcium 7.8 mg/dL (8.7-10.4); Chloride 111 mmol/L (98-107); Total Protein 5.2 g/dL (5.7-8.2)
[2024-12-29 09:48] LABS: Red Cell Distribution Width 23.5 % (11.8-14.3)
[2024-12-29 09:50] LABS: Hemoglobin 6.1 g/dL (13.5-17.5)
--- NOTE | 2024-12-29 12:12 | DVHINCON2 ---
GI Consult Consult Note GI consult note Date of Consultation:12/29/2024 Chief Complaint:blood loss, anemia Referring Physician: Clary ANGULO H&P: 64 yo male admitted c GIB Pt c/o generalized weakness Pt has generalized abd pain 1week Pt has N/V, c coffee ground emesis. Pt has melena DATE OF OPERATION: 09/29/24 PROCEDURE: Upper Endoscopy with biopsy. PREOPERATIVE INDICATION: The patient is a 64 -year-old male undergoing endoscopy for upper GI bleed and anemia POSTOPERATIVE DIAGNOSES: 1. 3 cm sliding-type hiatal hernia with no significant erosive esophagitis and there was a previously placed resolution clip within the hiatal hernia sac but no active ulceration or bleeding 2. [id number] portal hypertension gastropathy from which biopsies were obtained 3. There were no esophageal varices and it was otherwise normal examination up to the 2nd and 3rd part of the duodenum with no fresh or old blood in the upper GI tract EGD 07/2024, no active bleeding sp colonoscopy 5 yrs ago, unsure of results Pt admits ro drinking etoh No Tx for hep C Past Medical History: Anemia, CHF, Liver Neuropathy, GI bleed Past Surgical History: Right knee surgery Social History: Smoker: Non-Smoker Alcohol: Heavy Drugs: Marijuana Lives In: Home Family History: noncontributory Review of Systems: Constitutional: no fever, chill, weight loss HEENT: no eye pain, no hearing loss, no oral lesion, no scleral icterus Heart: no chest pain, no chest pressure Lung: no cough, no dyspnea with exertion Abdomen: see HPI Physical exam: General: NAD, AAOX3 Chest: lung tejeda clear to auscultation Heart: RRR, no murmur Abdomen:+ tenderness to palpation, +BS Labs: Labs Test 12/29/24 09:02 12/28/24 16:04 Range/Units White Blood Count 4.9 # 4.4-10.8 10^3/uL Red Blood Count 2.48 L 4.5-5.90 10^6/uL Hemoglobin 6.1 *L 13.5-17.5 g/dL Hematocrit 19.2 L 41.0-53.0 % Mean Corpuscular Volume 77.2 L 80.0-100.0 fL Mean Corpuscular Hemoglobin 24.4 L 28.0-32.0 pg Mean Corpuscular Hemoglobin Concent 31.6 L 32.0-36.0 g/dL Red Cell Distribution Width 23.5 H 11.8-14.3 % Platelet Count 65 L 140-450 10^3/uL Mean Platelet Volume 8.5 6.9-10.8 fL Neutrophils (%) (Auto) 70.5 37.0-80.0 % Lymphocytes (%) (Auto) 19.8 10.0-50.0 % Monocytes (%) (Auto) 8.9 0.0-12.0 % Eosinophils (%) (Auto) 0.5 0.0-7.0 % Basophils (%) (Auto) 0.3 0.0-2.0 % Neutrophils # (Auto) 3.4 1.6-8.6 10 ^3/uL Lymphocytes # (Auto) 1.0 0.4-5.4 10 ^3/uL Monocytes # (Auto) 0.4 0-1.3 10 ^3/uL Eosinophils # (Auto) 0 0-0.8 10 ^3/uL Basophils # (Auto) 0 0-0.2 10 ^3/uL Nucleated Red Blood Cells 0.1 % Sodium Level 139 136-145 mmol/L Potassium Level 4.9 3.5-5.1 mmol/L Chloride Level 111 H 98-107 mmol/L Carbon Dioxide Level 22 20-31 mmol/L Anion Gap 6 5-15 Blood Urea Nitrogen 51 #H 9-23 mg/dL Creatinine 0.94 0.700-1.30 mg/dL Glomerular Filtration Rate Calc 91 >90 mL/min BUN/Creatinine Ratio 54.3 H 10.0-20.0 Serum Glucose 93 74-106 mg/dL Calcium Level 7.8 L 8.7-10.4 mg/dL Total Bilirubin 1.0 0.2-1.0 mg/dL Aspartate Amino Transferase (AST) 69 H 13-40 U/L Alanine Aminotransferase (ALT) 23 7-40 U/L Alkaline Phosphatase 79 46-116 U/L Total Protein 5.2 L 5.7-8.2 g/dL Albumin 2.6 L 3.2-4.8 g/dL Prothrombin Time 13.4 H 9.3-11.8 sec Prothrombin Time INR 1.30 H 0.9-1.15 Activated Partial Thromboplast Time 32.5 24.5-34.5 SEC Lipase 42 12-53 U/L Imaging: CT abd pelvis IMPRESSION: 1. There is no acute process in the abdomen and pelvis. 2. Hepatic cirrhosis. There is no gross evidence of a discrete hepatic lesion. There is no ascites. 3. Cholelithiasis. 4. Colonic diverticulosis. Assessment: GIB anemia liver cirrhosis Hx Hep C etoh use marijuana use Plan: discussed c Dr Armando Preciado transfuse 2 UPRBCs monitor H@H protonix, carafate pt sp multiple EGD which did not show active bleeding, will reassess after pt is stable [facility], if pt has active bleeding discussed plan c pt and RN Thank you for this consult Date of Service: Dec 29, 2024 Billing Provider: ROBERTO HICKMAN Common Visit Codes: CONSULT ONLY Consultation Codes: [id number] CONSULT <60MIN ROBERTO HICKMAN Dec 29, 2024 12:12
[2024-12-29] MEDS: SUCRALFATE 1 GM/10 ML ORAL SUSP PO SCH (15:15)
[2024-12-29 16:25] LABS: Hematocrit 19.4 % (41.0-53.0)
[2024-12-29 16:29] LABS: Hemoglobin 6.3 g/dL (13.5-17.5)
[2024-12-29] MEDS: ACETAMINOPHEN 325 MG TAB PO PRN (20:27)
--- NOTE | 2024-12-29 20:46 | DVHPN2 ---
Subjective Hb dropped to 6 today, Changes from previous H/P or p: No Changes Eyes: No Pain, No Vision change, No Conjunctivae inflammation, No Eyelid inflammation, No Other, No Redness ENT: No Ear pain, No Ear discharge, No Nose pain, No Nose discharge, No Nose congestion, No Mouth pain, No Mouth swelling, No Throat pain, No Throat swelling, No Other Cardiovascular: No Chest Pain, No Palpitations, No Orthopnea, No Paroxysmal Noc. Dyspnea, No Edema, No Lt Headedness, No Other Respiratory: No Cough, No Dry, No Shortness of breath, No SOB with excertion, No Wheezing, No Hemoptysis, No Pleuritic Pain, No Sputum, No Other Gastrointestinal: Nausea, Vomiting, Abdominal Pain, Diarrhea; No Constipation, No Melena, No Hematochezia; Other (Hematemesis, black stool.) Genitourinary: No Dysuria, No Frequency, No Incontinence, No Hematuria, No Retention, No Other Musculoskeletal: No other, No neck pain, No shoulder pain, No arm pain, No back pain, No hand pain, No leg pain, No foot pain Skin: No Rash, No Lesions, No Jaundice, No Bruising, No Other Objective Vitals Vital Signs Date Time Temp Pulse Resp B/P (MAP) Pulse Ox O2 Delivery O2 Flow Rate FiO2 12/29/24 18:03 97.8 77 18 113/64 97.8 12/29/24 17:00 99 12/29/24 08:00 Room Air* 0 21 Intake/Output Intake and Output 12/29/24 05:00 Intake Total 750 ml Balance 750 ml Intake Oral 250 ml Tube Feeding 0 ml Blood Product 500 ml Other 0 ml # Voids 4 General Appearance: Alert, Oriented X3 Cardiovascular: Regular rate Abdomen: Other (ascites) Medications Current Medications Medications Dose Ordered Sig/Jesika Route Start Time Stop Time Status Last Admin Dose Admin Thiamine HCl 100 mg DAILY PO 12/29/24 10:00 12/29/24 08:13 100 MG Folic Acid 1 mg DAILY PO 12/29/24 10:00 12/29/24 08:13 1 MG Pantoprazole Sodium 40 mg BID IV 12/28/24 22:00 12/29/24 08:12 40 MG Hydralazine HCl 10 mg Q6HP PRN IV 12/28/24 21:00 Acetaminophen/ Hydrocodone Bitart 1 tab Q4HP PRN PO 12/28/24 21:00 12/29/24 17:35 1 TAB Ondansetron HCl 4 mg Q4HP PRN IV 12/28/24 21:00 Docusate Sodium 100 mg BIDPRN PRN PO 12/28/24 21:00 Acetaminophen 500 mg Q6HP PRN PO 12/28/24 21:00 12/29/24 20:27 500 MG Morphine Sulfate 2 mg Q4HPRN PRN IV 12/28/24 21:00 12/29/24 11:54 2 MG Nitroglycerin 0.4 mg Q5MINP PRN SL 12/28/24 22:45 Morphine Sulfate 2 mg Q30M PRN IV 12/28/24 22:45 Sucralfate 1 gm TID@0600,1130,2200 PO 12/29/24 11:30 12/29/24 15:15 1 GM Laboratory Results Laboratory Tests 12/29/24 09:02 12/29/24 15:15 Chemistry Test 12/29/24 09:02 Albumin 2.6 g/dL (3.2-4.8) L Calcium Level 7.8 mg/dL (8.7-10.4) L Total Protein 5.2 g/dL (5.7-8.2) L LFT Test 12/29/24 09:02 Alanine Aminotransferase (ALT) 23 U/L (7-40) Alkaline Phosphatase 79 U/L (46-116) Aspartate Amino Transferase (AST) 69 U/L (13-40) H Total Bilirubin 1.0 mg/dL (0.2-1.0) Assessment/Plan Assessment/Plan Alcoholic cirrhosis Alcoholic cirrhosis of liver with ascites Abdominal pain Unspecified abdominal pain Blood loss anemia Generalized weakness Hb dropped to 6 getting 2 more U PRBC GI consulted IV ceftriaxone for SBP prophylaxis Plan discussed with: Patient My Orders Orders - WAYNE BYERS MD Procedure Category Date Status Time * Wound Consult CONS 12/29/24 Transmitted Date of Service: Dec 29, 2024 Billing Provider: WAYNE BYERS MD Common Visit Codes: [id number] INP/OBS CARE(HIGH) WAYNE BYERS MD Dec 29, 2024 20:46
[2024-12-29] MEDS: cefTRIAXone 2GM/50ML D5W 50 ML IV SCH (21:59)
[2024-12-30] VITALS (9 sets, daily range): BP systolic 100–149; BP diastolic 59–78; PULSE 69–87; RESP 14–20; TEMP 97.1–98.6; O2SAT 19–98
[2024-12-30 11:59] LABS: Basophils # (auto) 0 10 ^3/uL (0-0.2); Basophils % (auto) 0.4 % (0.0-2.0); Eosinophils # (auto) 0 10 ^3/uL (0-0.8); Eosinophils % (auto) 0.4 % (0.0-7.0); Lymphocytes # (auto) 0.8 10 ^3/uL (0.4-5.4); Mean Corpuscular Volume 80.8 fL (80.0-100.0); Monocytes # (auto) 0.2 10 ^3/uL (0-1.3)
[2024-12-30 12:04] LABS: Hematocrit 25.4 % (41.0-53.0); Lymphocytes % (auto) 19.1 % (10.0-50.0); Mean Corpuscular Hemoglobin 25.5 pg (28.0-32.0); Mean Corpuscular Hgb Conc. 31.5 g/dL (32.0-36.0); Monocytes % (auto) 4.4 % (0.0-12.0); Neutrophils % (auto) 75.7 % (37.0-80.0); Platelet Count (auto) 68 10^3/uL (140-450); Red Blood Cells 3.15 10^6/uL (4.5-5.90); Red Cell Distribution Width 21.6 % (11.8-14.3)
--- NOTE | 2024-12-30 19:20 | DVHPN2 ---
Subjective in bed resting Changes from previous H/P or p: No Changes Eyes: No Pain, No Vision change, No Conjunctivae inflammation, No Eyelid inflammation, No Other, No Redness ENT: No Ear pain, No Ear discharge, No Nose pain, No Nose discharge, No Nose congestion, No Mouth pain, No Mouth swelling, No Throat pain, No Throat swelling, No Other Cardiovascular: No Chest Pain, No Palpitations, No Orthopnea, No Paroxysmal Noc. Dyspnea, No Edema, No Lt Headedness, No Other Respiratory: No Cough, No Dry, No Shortness of breath, No SOB with excertion, No Wheezing, No Hemoptysis, No Pleuritic Pain, No Sputum, No Other Gastrointestinal: Nausea, Vomiting, Abdominal Pain, Diarrhea; No Constipation, No Melena, No Hematochezia; Other (Hematemesis, black stool.) Genitourinary: No Dysuria, No Frequency, No Incontinence, No Hematuria, No Retention, No Other Musculoskeletal: No other, No neck pain, No shoulder pain, No arm pain, No back pain, No hand pain, No leg pain, No foot pain Skin: No Rash, No Lesions, No Jaundice, No Bruising, No Other Objective Vitals Vital Signs Date Time Temp Pulse Resp B/P (MAP) Pulse Ox O2 Delivery O2 Flow Rate FiO2 12/30/24 17:40 69 19 143/71 12/30/24 17:00 97.7 98 97.7 12/30/24 08:00 Room Air* 0 21 Intake/Output Intake and Output 12/30/24 05:00 Intake Total 1425 ml Output Total 850 ml Balance 575 ml Intake Oral 525 ml Blood Product 900 ml Output Urine Total 850 ml Stool Total 0 ml # Voids 5 General Appearance: Alert, Oriented X3 Cardiovascular: Regular rate Abdomen: Other (ascites) Medications Current Medications Medications Dose Ordered Sig/Jesika Route Start Time Stop Time Status Last Admin Dose Admin Thiamine HCl 100 mg DAILY PO 12/29/24 10:00 12/30/24 08:55 100 MG Folic Acid 1 mg DAILY PO 12/29/24 10:00 12/30/24 08:55 1 MG Pantoprazole Sodium 40 mg BID IV 12/28/24 22:00 12/30/24 08:54 40 MG Hydralazine HCl 10 mg Q6HP PRN IV 12/28/24 21:00 Acetaminophen/ Hydrocodone Bitart 1 tab Q4HP PRN PO 12/28/24 21:00 12/30/24 16:07 1 TAB Ondansetron HCl 4 mg Q4HP PRN IV 12/28/24 21:00 Docusate Sodium 100 mg BIDPRN PRN PO 12/28/24 21:00 Acetaminophen 500 mg Q6HP PRN PO 12/28/24 21:00 12/29/24 20:27 500 MG Morphine Sulfate 2 mg Q4HPRN PRN IV 12/28/24 21:00 12/30/24 17:40 2 MG Nitroglycerin 0.4 mg Q5MINP PRN SL 12/28/24 22:45 Morphine Sulfate 2 mg Q30M PRN IV 12/28/24 22:45 Sucralfate 1 gm TID@0600,1130,2200 PO 12/29/24 11:30 12/30/24 11:00 1 GM Ceftriaxone Sodium/Dextrose 50 ml @ 50 mls/hr DAILY@2200 IV 12/29/24 22:00 12/29/24 21:59 50 MLS/HR Laboratory Results Laboratory Tests 12/29/24 09:02 12/30/24 11:45 Assessment/Plan Assessment/Plan Alcoholic cirrhosis Alcoholic cirrhosis of liver with ascites Abdominal pain Unspecified abdominal pain Blood loss anemia Generalized weakness Hb dropped to 6>8 now and stable GI consulted>monitor H and H if repeat bleeding call back IV ceftriaxone for SBP prophylaxis Plan discussed with: Patient My Orders Orders - WAYNE BYERS MD Procedure Category Date Status Time Cleanse Wound With KATHI 12/30/24 In Process Wound Clean 11:50 Date of Service: Dec 30, 2024 Billing Provider: WAYNE BYERS MD Common Visit Codes: [id number] INP/OBS CARE(HIGH) WAYNE BYERS MD Dec 30, 2024 19:20
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
[2024-12-31] VITALS (8 sets, daily range): BP systolic 142–174; BP diastolic 77–95; PULSE 65–87; RESP 18–22; TEMP 97.8–98.9; O2SAT 97–100
[2024-12-31] MEDS: diphenhdrAMINE HCL 50 MG/1 ML VL IV PRN (03:22)
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
--- NOTE | 2024-12-31 20:22 | DVHPN2 ---
Subjective in bed resting Changes from previous H/P or p: No Changes Eyes: No Pain, No Vision change, No Conjunctivae inflammation, No Eyelid inflammation, No Other, No Redness ENT: No Ear pain, No Ear discharge, No Nose pain, No Nose discharge, No Nose congestion, No Mouth pain, No Mouth swelling, No Throat pain, No Throat swelling, No Other Cardiovascular: No Chest Pain, No Palpitations, No Orthopnea, No Paroxysmal Noc. Dyspnea, No Edema, No Lt Headedness, No Other Respiratory: No Cough, No Dry, No Shortness of breath, No SOB with excertion, No Wheezing, No Hemoptysis, No Pleuritic Pain, No Sputum, No Other Gastrointestinal: Nausea, Vomiting, Abdominal Pain, Diarrhea; No Constipation, No Melena, No Hematochezia; Other (Hematemesis, black stool.) Genitourinary: No Dysuria, No Frequency, No Incontinence, No Hematuria, No Retention, No Other Musculoskeletal: No other, No neck pain, No shoulder pain, No arm pain, No back pain, No hand pain, No leg pain, No foot pain Skin: No Rash, No Lesions, No Jaundice, No Bruising, No Other Objective Vitals Vital Signs Date Time Temp Pulse Resp B/P (MAP) Pulse Ox O2 Delivery O2 Flow Rate FiO2 12/31/24 18:16 81 18 150/82 12/31/24 17:00 98.0 100 98.0 12/31/24 08:00 Room Air* 0 21 Intake/Output Intake and Output 12/31/24 05:00 Intake Total 50 ml Output Total 400 ml Balance -350 ml IV Total 50 ml Output Urine Total 400 ml # Voids 10 General Appearance: Alert, Oriented X3 Cardiovascular: Regular rate Abdomen: Other (ascites) Medications Current Medications Medications Dose Ordered Sig/Jesika Route Start Time Stop Time Status Last Admin Dose Admin Thiamine HCl 100 mg DAILY PO 12/29/24 10:00 12/31/24 08:39 100 MG Folic Acid 1 mg DAILY PO 12/29/24 10:00 12/31/24 08:39 1 MG Pantoprazole Sodium 40 mg BID IV 12/28/24 22:00 12/31/24 08:39 40 MG Hydralazine HCl 10 mg Q6HP PRN IV 12/28/24 21:00 Acetaminophen/ Hydrocodone Bitart 1 tab Q4HP PRN PO 12/28/24 21:00 12/31/24 08:39 1 TAB Ondansetron HCl 4 mg Q4HP PRN IV 12/28/24 21:00 Docusate Sodium 100 mg BIDPRN PRN PO 12/28/24 21:00 Acetaminophen 500 mg Q6HP PRN PO 12/28/24 21:00 12/30/24 21:41 500 MG Morphine Sulfate 2 mg Q4HPRN PRN IV 12/28/24 21:00 12/31/24 18:16 2 MG Nitroglycerin 0.4 mg Q5MINP PRN SL 12/28/24 22:45 Morphine Sulfate 2 mg Q30M PRN IV 12/28/24 22:45 Sucralfate 1 gm TID@0600,1130,2200 PO 12/29/24 11:30 12/31/24 11:42 1 GM Ceftriaxone Sodium/Dextrose 50 ml @ 50 mls/hr DAILY@2200 IV 12/29/24 22:00 12/30/24 20:51 50 MLS/HR Diphenhydramine HCl 25 mg Q4HP PRN IV 12/30/24 22:45 12/31/24 08:39 25 MG Laboratory Results Laboratory Tests 12/29/24 09:02 12/30/24 11:45 Assessment/Plan Assessment/Plan Alcoholic cirrhosis Alcoholic cirrhosis of liver with ascites Abdominal pain Unspecified abdominal pain Blood loss anemia Generalized weakness Hb dropped to 6>8 now and stable GI consulted>monitor H and H if repeat bleeding call back IV ceftriaxone for SBP prophylaxis Plan discussed with: Patient Date of Service: Dec 31, 2024 Billing Provider: WAYNE BYERS MD Common Visit Codes: [id number] INP/OBS CARE(HIGH) WAYNE BYERS MD Dec 31, 2024 20:22
[2024-12-31] MEDS ORDERED: FURO40TA4 PO (20:35)
[2024-12-31] MEDS ORDERED: GABA-1308 PO (20:35)
[2024-12-31] MEDS ORDERED: DIPH25CA66 PO (20:35)
[2024-12-31] MEDS ORDERED: NAPR-1335 PO (20:35)
[2024-12-31] MEDS ORDERED: HYDR-4798 PO (20:35)
[2025-01-01 01:00] VITALS: BP 152/83; PULSE 78; RESP 17; TEMP 98.3; O2SAT 100
[2025-01-01 05:00] VITALS: BP 155/81; PULSE 75; RESP 18; TEMP 97.6; O2SAT 98
[2025-01-01 08:07] VITALS: PULSE 77; RESP 18; O2SAT 6
--- NOTE | 2025-01-01 12:40 | DVHPN2 ---
Subjective Complains of generalized pain He says he just had a bowel movement which was black stools No labs were done today Changes from previous H/P or p: Changes Eyes: No Pain, No Vision change, No Conjunctivae inflammation, No Eyelid inflammation, No Other, No Redness ENT: No Ear pain, No Ear discharge, No Nose pain, No Nose discharge, No Nose congestion, No Mouth pain, No Mouth swelling, No Throat pain, No Throat swelling, No Other Cardiovascular: No Chest Pain, No Palpitations, No Orthopnea, No Paroxysmal Noc. Dyspnea, No Edema, No Lt Headedness, No Other Respiratory: No Cough, No Dry, No Shortness of breath, No SOB with excertion, No Wheezing, No Hemoptysis, No Pleuritic Pain, No Sputum, No Other Gastrointestinal: Nausea, Vomiting, Abdominal Pain, Diarrhea; No Constipation, No Melena, No Hematochezia; Other (Hematemesis, black stool.) Genitourinary: No Dysuria, No Frequency, No Incontinence, No Hematuria, No Retention, No Other Musculoskeletal: No other, No neck pain, No shoulder pain, No arm pain, No back pain, No hand pain, No leg pain, No foot pain Skin: No Rash, No Lesions, No Jaundice, No Bruising, No Other Objective Vitals Vital Signs Date Time Temp Pulse Resp B/P (MAP) Pulse Ox O2 Delivery O2 Flow Rate FiO2 01/01/25 10:55 77 18 138/78 01/01/25 05:00 97.6 98 97.6 12/31/24 20:00 Room Air* 0 21 Intake/Output Intake and Output 01/01/25 07:00 Intake Total 350 ml Output Total 425 ml Balance -75 ml Intake Oral 300 ml IV Total 50 ml Output Urine Total 425 ml # Voids 5 General Appearance: Alert, Oriented X3 Cardiovascular: Regular rate Abdomen: Other (ascites) Medications Current Medications Medications Dose Ordered Sig/Jesika Route Start Time Stop Time Status Last Admin Dose Admin Thiamine HCl 100 mg DAILY PO 12/29/24 10:00 01/01/25 10:19 100 MG Folic Acid 1 mg DAILY PO 12/29/24 10:00 01/01/25 10:19 1 MG Pantoprazole Sodium 40 mg BID IV 12/28/24 22:00 01/01/25 10:19 40 MG Hydralazine HCl 10 mg Q6HP PRN IV 2/6/25 21:00 Acetaminophen/ Hydrocodone Bitart 1 tab Q4HP PRN PO 12/28/24 21:00 01/01/25 05:31 1 TAB Ondansetron HCl 4 mg Q4HP PRN IV 12/28/24 21:00 Docusate Sodium 100 mg BIDPRN PRN PO 12/28/24 21:00 Acetaminophen 500 mg Q6HP PRN PO 12/28/24 21:00 12/30/24 21:41 500 MG Morphine Sulfate 2 mg Q4HPRN PRN IV 12/28/24 21:00 01/01/25 10:25 2 MG Nitroglycerin 0.4 mg Q5MINP PRN SL 12/28/24 22:45 Morphine Sulfate 2 mg Q30M PRN IV 12/28/24 22:45 Sucralfate 1 gm TID@0600,1130,2200 PO 12/29/24 11:30 01/01/25 05:31 1 GM Ceftriaxone Sodium/Dextrose 50 ml @ 50 mls/hr DAILY@2200 IV 12/29/24 22:00 12/31/24 22:11 50 MLS/HR Diphenhydramine HCl 25 mg Q4HP PRN IV 12/30/24 22:45 01/01/25 01:00 25 MG Laboratory Results Laboratory Tests 12/29/24 09:02 12/30/24 11:45 Assessment/Plan Assessment/Plan Upper GI bleed Liver cirrhosis Alcoholic cirrhosis Acute on chronic anemia Acute anemia due to blood loss Abdominal pain Generalized weakness Hepatitis-C antibody positive Chronic pain syndrome Thrombocytopenia Coagulopathy Plan Continue Protonix IV twice a day Check the hemoglobin again and transfuse as needed Benadryl p.r.n. for itching Morphine p.r.n. for pain Folic acid and thiamine GI consult is on board Carafate and Protonix Full code Advance directives discussed for 15 minutes Plan discussed with: Patient My Orders Orders - MAALIA WAKEFIELD MD Procedure Category Date Status Time Morphine Sulfate PHA 01/01/25 Logged Injection 12:45 Gabapentin Capsule PHA 01/01/25 Logged (Neurontin Capsule) 18:00 Gabapentin Capsule PHA 01/01/25 Logged (Neurontin Capsule) 12:45 Date of Service: Jan 01, 2025 Billing Provider: AMALIA WAKEFIELD MD Common Visit Codes: [id number] INP/OBS CARE(HIGH) Secondary Visit Codes: [id number] CARE PLAN 30 MINUTES AMALIA WAKEFIELD MD Jan 01, 2025 12:40
[2025-01-01] MEDS: MORPHINE SULFATE INJ 2 MG/ml SYRG IV PRN ×2 (12:47→13:19)
[2025-01-01] MEDS: GABAPENTIN 400 MG CAP PO ONE (13:14)
[2025-01-01] MEDS: GABAPENTIN 400 MG CAP PO SCH (17:57)
[2025-01-01 19:16] LABS: Basophils # (auto) 0 10 ^3/uL (0-0.2); Eosinophils # (auto) 0 10 ^3/uL (0-0.8); Hemoglobin 8.2 g/dL (13.5-17.5); Mean Corpuscular Volume 80.5 fL (80.0-100.0); Monocytes # (auto) 0.2 10 ^3/uL (0-1.3)
[2025-01-01 19:19] LABS: Basophils % (auto) 0.6 % (0.0-2.0); Eosinophils % (auto) 1.3 % (0.0-7.0); Hematocrit 25.7 % (41.0-53.0); Lymphocytes # (auto) 0.4 10 ^3/uL (0.4-5.4); Lymphocytes % (auto) 23.1 % (10.0-50.0); Mean Corpuscular Hemoglobin 25.7 pg (28.0-32.0); Monocytes % (auto) 10.7 % (0.0-12.0); Neutrophils % (auto) 64.3 % (37.0-80.0); Nucleated Red Blood Cells % 0.3 %; Platelet Count (auto) 52 10^3/uL (140-450); Red Blood Cells 3.19 10^6/uL (4.5-5.90)
[2025-01-01 19:30] LABS: Red Cell Distribution Width 21.7 % (11.8-14.3); White Blood Cell 1.6 10^3/uL (4.4-10.8)
[2025-01-01 20:00] VITALS: RESP 18; O2SAT 6
--- NOTE | 2025-01-01 20:24 | DVHPN2 ---
Progress Note - Dictate Date Seen: Jan 01, 2025 Medical Necessity Reason Pt with a Central, PICC or Fol: No Subjective No new complaints Patient is having multiple bowel movements which he reports are still dark Patient is positive for MRSA in his nares He has pancytopenia with worsening of leukopenia down to 1.6 He has had multiple EGDs within the last year showing portal hypertension gastropathy hiatal hernia and on EGD there were trace varices vital signs Vital Sign Date Time Temp Pulse Resp B/P (MAP) Pulse Ox O2 Delivery O2 Flow Rate FiO2 01/01/25 18:04 84 16 158/85 01/01/25 08:07 6 Room Air* 0 21 01/01/25 05:00 97.6 97.6 Total Intake and Output 12/31/24 12/31/24 01/01/25 15:00 23:00 07:00 Intake Total 100 ml 250 ml Output Total 425 ml Balance -325 ml 250 ml medications Current Medications Medications Dose Ordered Sig/Jesika Route Start Time Stop Time Status Last Admin Dose Admin Thiamine HCl 100 mg DAILY PO 12/29/24 10:00 01/01/25 10:19 100 MG Folic Acid 1 mg DAILY PO 12/29/24 10:00 01/01/25 10:19 1 MG Pantoprazole Sodium 40 mg BID IV 12/28/24 22:00 01/01/25 10:19 40 MG Hydralazine HCl 10 mg Q6HP PRN IV 12/28/24 21:00 Acetaminophen/ Hydrocodone Bitart 1 tab Q4HP PRN PO 12/28/24 21:00 01/01/25 05:31 1 TAB Ondansetron HCl 4 mg Q4HP PRN IV 12/28/24 21:00 Docusate Sodium 100 mg BIDPRN PRN PO 12/28/24 21:00 Acetaminophen 500 mg Q6HP PRN PO 12/28/24 21:00 12/30/24 21:41 500 MG Nitroglycerin 0.4 mg Q5MINP PRN SL 12/28/24 22:45 Morphine Sulfate 2 mg Q30M PRN IV 12/28/24 22:45 Sucralfate 1 gm TID@0600,1130,2200 PO 12/29/24 11:30 01/01/25 16:13 1 GM Ceftriaxone Sodium/Dextrose 50 ml @ 50 mls/hr DAILY@2200 IV 12/29/24 22:00 12/31/24 22:11 50 MLS/HR Diphenhydramine HCl 25 mg Q4HP PRN IV 12/30/24 22:45 01/01/25 17:57 25 MG Morphine Sulfate 4 mg Q4HPRN PRN IV 01/01/25 12:45 01/01/25 18:04 4 MG Gabapentin 800 mg QID PO 01/01/25 18:00 01/01/25 17:57 800 MG Mupirocin 1 applic BID EACHNOSTRI 01/01/25 22:00 01/06/25 21:59 objective General: NAD, AAOX3 Chest: lung tejeda clear to auscultation Heart: RRR, no murmur Abdomen:+ tenderness to palpation, +BS Extremities scars from recent rene in the right arm and shoulder Extremities show some superficial wounds and unkempt nails on his toes laboratory and microbiology Laboratory Tests 01/01/25 18:53 12/29/24 09:02 Test 12/29/24 09:02 Range/Units Serum Glucose 93 74-106 mg/dL Problems(with codes): (1) Leukopenia (2) Chronic pain syndrome (3) Hepatitis C antibody positive in blood (4) Anemia (5) Alcoholic cirrhosis (6) Alcoholic cirrhosis of liver with ascites (7) Generalized weakness (8) Thrombocytopenia (9) Pancytopenia Prognosis Plan Repeat labs in a.m. Recommend holding IV ceftriaxone If neutropenia worsens we will get Oncology consultation Continue supportive care Check stool for occult blood Patient has not been able to come to GI clinic to take treatment for hep C as recommended because of his recent rene and prolonged hospitalizations Overall prognosis is guarded and patient has chronic pain issues due to recent rene Plan discussed with: Patient CC Plasma Assessment Blood Product Administration S: [id number] NAEEM SILVA MD Jan 01, 2025 20:24
[2025-01-01 21:00] VITALS: BP 121/82; PULSE 83; RESP 18; TEMP 97.7; O2SAT 94
[2025-01-01 21:02] VITALS: BP 159/84; PULSE 80; RESP 16; TEMP 97.6; O2SAT 100
[2025-01-01] MEDS ORDERED: cefTRIAXone 1GM/50ML D5W 0 ML IV ONE (22:04)
[2025-01-01] MEDS: MUPIROCIN 2% OINT 15gm or 22gm FOR MRSA NARES EACHNOSTRI SCH (22:11)
[2025-01-02 00:46] VITALS: BP 154/82; PULSE 85; RESP 16; TEMP 97.9; O2SAT 99
[2025-01-02 05:00] VITALS: BP 164/96; PULSE 82; RESP 18; TEMP 97.5; O2SAT 98
[2025-01-02] MEDS ORDERED: FOLIC ACID 1 MG TAB PO SCH (10:00)
--- NOTE | 2025-01-02 10:35 | DVHDS2 ---
Discharge Summary Date of Admission Dec 28, 2024 at 22:31 Date of Discharge: Jan 02, 2025 Labs/Diagnostic Data: Laboratory Results Test 01/01/25 18:53 12/29/24 09:02 12/28/24 16:04 White Blood Count 1.6 10^3/uL (4.4-10.8) Red Blood Count 3.19 10^6/uL (4.5-5.90) Hemoglobin 8.2 g/dL (13.5-17.5) Hematocrit 25.7 % (41.0-53.0) Mean Corpuscular Volume 80.5 fL (80.0-100.0) Mean Corpuscular Hemoglobin 25.7 pg (28.0-32.0) Mean Corpuscular Hemoglobin Concent 32.0 g/dL (32.0-36.0) Red Cell Distribution Width 21.7 % (11.8-14.3) Platelet Count 52 10^3/uL (140-450) Mean Platelet Volume 8.8 fL (6.9-10.8) Neutrophils (%) (Auto) 64.3 % (37.0-80.0) Lymphocytes (%) (Auto) 23.1 % (10.0-50.0) Monocytes (%) (Auto) 10.7 % (0.0-12.0) Eosinophils (%) (Auto) 1.3 % (0.0-7.0) Basophils (%) (Auto) 0.6 % (0.0-2.0) Neutrophils # (Auto) 1.0 10 ^3/uL (1.6-8.6) Lymphocytes # (Auto) 0.4 10 ^3/uL (0.4-5.4) Monocytes # (Auto) 0.2 10 ^3/uL (0-1.3) Eosinophils # (Auto) 0 10 ^3/uL (0-0.8) Basophils # (Auto) 0 10 ^3/uL (0-0.2) Nucleated Red Blood Cells 0.3 % Sodium Level 139 mmol/L (136-145) Potassium Level 4.9 mmol/L (3.5-5.1) Chloride Level 111 mmol/L (98-107) Carbon Dioxide Level 22 mmol/L (20-31) Anion Gap 6 (5-15) Blood Urea Nitrogen 51 mg/dL (9-23) Creatinine 0.94 mg/dL (0.700-1.30) Glomerular Filtration Rate Calc 91 mL/min (>90) BUN/Creatinine Ratio 54.3 (10.0-20.0) Serum Glucose 93 mg/dL (74-106) Calcium Level 7.8 mg/dL (8.7-10.4) Total Bilirubin 1.0 mg/dL (0.2-1.0) Aspartate Amino Transferase (AST) 69 U/L (13-40) Alanine Aminotransferase (ALT) 23 U/L (7-40) Alkaline Phosphatase 79 U/L (46-116) Total Protein 5.2 g/dL (5.7-8.2) Albumin 2.6 g/dL (3.2-4.8) Prothrombin Time 13.4 sec (9.3-11.8) Prothrombin Time INR 1.30 (0.9-1.15) Activated Partial Thromboplast Time 32.5 SEC (24.5-34.5) Lipase 42 U/L (12-53) Other Laboratory Tests 01/01/25 18:53 12/29/24 09:02 Brief Hx & Hospital Course: Disease: Upper GI bleed Liver cirrhosis Alcoholic cirrhosis Acute on chronic anemia Acute anemia due to blood loss Abdominal pain Generalized weakness Hepatitis-C antibody positive Chronic pain syndrome Thrombocytopenia Coagulopathy 64-year-old male was admitted for GI bleed with black stools and required blood transfusions His hemoglobin was stable at 8.0 yesterday Another CBC was done in the afternoon showed a white count of 1.6 and hemoglobin 8.2 and platelets at 52 Yesterday he was complaining of pain so he was increased on his dose of morphine and was given Benadryl for the itching This morning the patient left the hospital AMA Condition at Discharge: Undetermined Final Diagnosis/Problems List Upper GI bleed Liver cirrhosis Alcoholic cirrhosis Acute on chronic anemia Acute anemia due to blood loss Abdominal pain Generalized weakness Hepatitis-C antibody positive Chronic pain syndrome Thrombocytopenia Coagulopathy Discharge Disposition: AMA [facility] Discharge Will this Physician continue t: No Discharge Statement: "Patient was advised to return to the ER or call 911 if any headaches, dizziness, shortness of breath, chest pain, abdominal pain, bleeding, fevers, or worsening of medical condition. Patient was counseled about treatment plan, medications, possible side effects, patientverbalized understanding. All questions were answered to the best of my ability. This discharge took greater then 30 minutes in planning, reviewing documentation, counseling the patient, and discussing with other team members." ASSESSMENT ASSESSMENT Assessment Date of Service: Jan 02, 2025 Billing Provider: AMALIA WAKEFIELD MD Common Visit Codes: 00471-ORK/OBS DISCH DAY <30MIN AMALIA WAKEFIELD MD Jan 02, 2025 10:35
== END 2025-01-02 06:30 | disposition left against medical advice (07) | DRG 280 ==
LOC: EDUNIT# 15:37 → EDBD 15:37 → ER 15:37 → TELE 22:31 → TELE-WESTW 12-29 02:45
PROVIDERS: ADMIT Nurse Practitioner Family; ATTEND Internal Medicine Geriatric Medicine
PROC: 30233N1 Transfusion of Nonautologous Red Blood Cells into Peripheral Vein, Percutaneous Approach (ICD-10-PCS; principal; 2024-12-29)
DX: K70.31 Alcoholic cirrhosis of liver with ascites (principal); D61.818 Other pancytopenia; D68.9 Coagulation defect, unspecified; D62 Acute posthemorrhagic anemia; F12.90 Cannabis use, unspecified, uncomplicated; K75.9 Inflammatory liver disease, unspecified; G62.9 Polyneuropathy, unspecified; Z53.29 Procedure and treatment not carried out because of patient's decision for other reasons; I50.9 Heart failure, unspecified; G89.4 Chronic pain syndrome; Z88.8 Allergy status to other drugs, medicaments and biological substances; Z79.899 Other long term (current) drug therapy
CPT/HCPCS: 36415; 74176; 80053; 83690; 85014; 85018; 85025; 85610; 85730; 86850; 86900; 86901; 86920; 87081; 96374; 96375; 99291; G0378; J2470